=== PATIENT | female | born 1940 | race Caucasian/White ===

== ENCOUNTER 2019-12-19 09:44 | Outpatient (REF) | payer MEDICARE, SELFPAY ==
[2019-12-19 12:02] LABS: Alanine Aminotransferase 28 U/L (0-31); Albumin Level 4.2 g/dL (3.5-5.0); Alkaline Phosphatase 57 U/L (39-117); Anion Gap 14 (12-20); Aspartate Amino Transferase 19 U/L (5-31); Bilirubin Total 0.5 mg/dL (0.0-1.0); Blood Urea Nitrogen 14 mg/dL (9-16); Carbon Dioxide 24 mmol/L (22-29); Chloride 106 mmol/L (96-108); Estimated Glomerular Filt Rate > 60; Glucose Random 98 mg/dL (60-115); Potassium 3.9 mmol/l (3.3-5.1); Sodium 140 mmol/L (135-145); Total Protein 6.4 g/dL (6.5-8.0)
[2019-12-19 12:24] LABS: Vitamin D 25-OH Total 45.4 ng/mL (>30)
[2019-12-22 20:21] LABS: Calcium (PTHI) 9.3 mg/dL (8.6-10.4); PTHI 28 pg/mL (14-64)
[2019-12-26 06:37] LABS: N-Telopeptide 25 (see note); NTXCreaRU 64 mg/dL (20-275)
== END 2019-12-19 09:45 | disposition home or self-care (01) ==
LOC: HO.HMGCLDS 09:44
PROVIDERS: PCP Internal Medicine; Visit Provider Internal Medicine
DX: M81.0 Age-related osteoporosis without current pathological fracture (principal)
CPT/HCPCS: 80053; 82306; 82523; 83970

== ENCOUNTER → 2019-12-22 09:51 | Outpatient (BNVA) | payer MEDICARE, SELFPAY | PROVIDERS: PCP Internal Medicine; Referring Provider Internal Medicine; Visit Provider Internal Medicine | DX: M81.0 Age-related osteoporosis without current pathological fracture (principal); E55.9 Vitamin D deficiency, unspecified; E03.9 Hypothyroidism, unspecified; Z79.899 Other long term (current) drug therapy; Z87.891 Personal history of nicotine dependence | CPT/HCPCS: 99214 ==

== ENCOUNTER 2020-01-29 09:42 | Outpatient (REF) | payer MEDICARE, SELFPAY ==
[2020-01-29 10:57] LABS: Blood Urea Nitrogen 14 mg/dL (9-16); Estimated Glomerular Filt Rate > 60
== END 2020-01-29 09:43 | disposition home or self-care (01) ==
LOC: HO.MDS 09:42
PROVIDERS: PCP Internal Medicine; Visit Provider Internal Medicine
DX: M81.0 Age-related osteoporosis without current pathological fracture (principal)
CPT/HCPCS: 82565; 84520; 96365; J3489

== ENCOUNTER 2020-01-29 20:40 | Inpatient (IN) | payer MEDICARE, SELFPAY ==
[2020-01-29 20:42] VITALS: BP 146/78; PULSE 92; RESP 16; TEMP 36.5; O2SAT 99; BMI 26.4
--- NOTE | 2020-01-29 21:24 | XR_ITS ---
EXAMINATION: XR RIBS, LEFT CLINICAL INFORMATION: Status post fall with left lower rib pain COMPARISON: None TECHNIQUE: 3 views of the left ribs were obtained. FINDINGS: Lungs are clear. No consolidation, pneumothorax, or pleural effusion. The cardiomediastinal silhouette and pulmonary vasculature are normal. Osseous structures are unremarkable. Ribs are intact. No fractures are identified. Surgical clips are present in the gallbladder fossa. XR/XR ribs LT min 3V w CXR1V IMPRESSION: Unremarkable examination.
--- NOTE | 2020-01-29 21:25 | CT_ITS ---
EXAMINATION: CT HEAD WITHOUT CONTRAST CLINICAL INFORMATION: Fall COMPARISON: None TECHNIQUE: Contiguous axial imaging was performed from the skull base to vertex without intravenous administration of contrast. This CT examination was performed using dose optimization techniques as appropriate, variously including the following: *Automated exposure control *Adjustment of mA and/or kV according to patient size (this includes techniques or standardized protocols for targeted exams where dose is matched to indication/reason for exam; i.e. extremities or head) *Use of iterative reconstruction technique DLP: 686 mGy-cm FINDINGS: There is a left cerebral convexity subdural hematoma. This measures 0.6 cm in thickness at the level of the lateral ventricles. There is no mass effect or midline shift. There is no evidence of acute intracranial hemorrhage or territorial infarction. No abnormal mass effect or midline shift is seen. Bustillo to white matter differentiation is well preserved. No extra-axial fluid collections are identified. Mild cerebral volume loss. No hydrocephalus. There is no abnormal attenuation within the brain parenchyma. The osseous structures and soft tissues are normal. The mastoid air cells and visualized portions of the paranasal sinuses are well aerated. CT/CT head/brain wo con IMPRESSION: Small left cerebral convexity acute subdural hematoma. No mass effect or midline shift. This critical result was discussed with Satnam Mackenzie MD by telephone at 01/29/2020 9:50 PM and it was ascertained that the content and urgency of the report was understood at the time of direct communication.
--- NOTE | 2020-01-29 21:26 | ED_ITS ---
HPI - Head Injury General Chief complaint: Head Injury Stated complaint: Fall/Head Injury Time Seen by Provider: 01/29/20 21:24 Source: patient Mode of arrival: ambulatory Limitations: no limitations History of Present Illness HPI Narrative: Patient with is in stable health otherwise was coming downstairs lost balance and fell down 2 steps landed on her left side hitting the head to the ground patient was dazed, no loss of consciousness patient not on blood thinners take Advil a day also she has skin tear on the left jeff and complaining of left lower rib pain patient denies any shortness of breath , not on any aspirin or any anticoagulants patient was seen at urgent care center prior to arrival and sent here patient is ambulatory with GCS 15 patient complaining of headache on the left side since fall MD Complaint: head injury Onset (ago): minute(s) Mechanism of Injury: unsure Place: home Loss of Consciousness: no Location of injury: temporal Severity: moderate Quality: dull Associated symptoms: denies other symptoms Related Data Home Medications Medication Instructions Recorded Confirmed amlodipine 5 mg tablet 5 mg PO DAILY 12/22/19 01/29/20 levothyroxine 50 mcg tablet 50 mcg PO DAILY 12/22/19 01/29/20 sumatriptan succinate 50 mg tablet See Rx Instructions PO .COMPLEX 12/22/19 01/29/20 trazodone 200 mg PO BEDTIME 01/29/20 01/29/20 Previous Rx's Medication Instructions Recorded zoledronic acid 5 mg/100 mL in See Rx Instructions IV .COMPLEX 01/14/20 mannitol 5 %-water intravenous #100 ml piggybck simvastatin 5 mg tablet 5 mg PO BEDTIME #90 cap 01/29/20 Allergies Allergy/AdvReac Type Severity Reaction Status Date / Time No Known Allergies Allergy Verified 12/22/19 08:38 Review of Systems Review of Systems: REVIEW OF SYSTEMS: Pertinent positives and negatives are stated above in the history. GEN: no fevers, chills, fatigue HEENT: no nasal congestion, sore throat, ear pain NEURO: no dizziness, focal weakness headache+ PULM: no cough, shortness of breath CV: no chest pain, palpitations, LE edema ABD: no abdominal pain, nausea, vomiting, diarrhea : no dysuria, urgency, frequency SKIN: no rash ROS otherwise negative x 10 PMFSH Past Medical History Medical History Cellulitis HTN (hypertension) Hypothyroidism Migraine Osteoporosis Vitamin D deficiency Surgical History History of back surgery History of bunionectomy History of surgery on wrist History of tonsillectomy and adenoidectomy History of total abdominal hysterectomy and bilateral salpingo-oophorectomy Hx of cholecystectomy Hx of flexible sigmoidoscopy Hx of hammer toe correction Family History Family History Father No problems noted. Mother No problems noted. Social History Social History (Reviewed 01/30/20 @ 00: by Satnam Mackenzie MD) Alcohol intake: never Smoking Status: Never smoker Use of substances other than those prescribed or required for medical reasons: No Advance Directives: No Advance Directives Information Provided: Yes Physical Exam Vital Signs: Vital Signs: Last Vital Signs Temp 98 F 01/29/20 22:45 Pulse 100 01/29/20 22:45 Resp 18 01/29/20 22:45 BP 138/78 01/29/20 22:45 Pulse Ox 95 01/29/20 22:45 Body Mass Index 26.4 Const: General: cooperative, healthy appearing, comfortable, no acute distress, well developed, alert, awake and Physically active Nutritional Appearance: average body habitus Orientation/consciousness: oriented to person, oriented to place, oriented to time and patient oriented x3 Limitations: no limitations HENMT: Head: Yes No palpable skull fracture present, No Berkowitz's sign, Yes scalp tenderness (Left temporal) and No periorbital ecchymosis Ears: hearing grossly normal bilaterally and TM's normal bilaterally General nose exam: Normal external nose present Face and sinus: Yes normal facial exam Mouth: Normal oral and palatal mucosa present Throat: Yes posterior oropharynx normal Eyes: General: appearance normal, both eyes and all related structures Conjunctivae: conjunctivae normal Sclerae: sclerae normal Pupils: Equal, round and reactive pupils present Neck: Neck: Yes normal visual inspection, Yes full ROM, Yes no lymphadenopathy, Yes trachea midline and Yes supple Thyroid: Thyroid normal Chest: Chest palpation & inspection: normal inspection of the chest, no crepitus, no localized rib tenderness and tenderness costal cartilage (Left side in front) Breast/axilla inspection: normal inspection of the breasts Resp: Effort & Inspection: normal respiratory effort Auscultation: clear to auscultation bilaterally Cardio: Rate: regular rate Rhythm: regular rhythm Heart sounds: S1 normal heart sound present and S2 normal heart sound present GI: Inspection: Yes normal to inspection Palpation (GI): Soft to palpation, nontender and No hepatosplenomegaly present : General: Yes no CVA tenderness Back/Spine/Pelvis: Back: no CVA tenderness Thoracic/Lumbar Spine: thoracic and lumbar spine normal to inspection Skin: Full body images: 1. Skin tear 8 cm Neuro: Other: GCS 15 General: oriented to person, oriented to place, oriented to time, patient oriented x3, gait normal, tone normal, moves all extremities, Normal light touch and pain sensation, no focal motor deficits and CN's II-XI intact bilaterally Cranial nerves: Yes CN's II-XII intact bilaterally, Yes Facial sensation intact/muscles of mastication intact and Yes Equal, round and reactive pupils present Cognition (Neuro): normal cognition Motor exam (neuro): 5/5 motor strength present throughout Sensory Exam: Normal double simultaneous stimulation for sensation Course Course Course Narrative: Patient with mechanical fall with head injury with small left- sided subdural hematoma without any midline shift or fracture. Case discussed with Dr. Downs neurologist can admit medically in the hospital, neuro check q.[address] scan in the morning no need for transfer tonight to [facility] as patient is not on any anticoagulants and subdural bleed is not significant at this time Procedures Laceration Laceration 1: Site: lower extremity Side (If applicable): left Size (cm): 8 Description: other (Skin tear) Depth: simple, single layer Skin layer closed with: other (Steri-Strips) MDM - Head Injury Differential Diagnosis Differential diagnosis: Likely closed head injury and subdural hematoma Medical Records Attestation: I reviewed the patient's medical records. Lab Data Attestation: I reviewed the patient's lab results. Result diagrams: 01/29/20 22:22 01/29/20 22:22 Labs: Lab Results 01/29/20 01/29/20 01/29/20 Range/Units 22:22 22:22 22:22 WBC 7.9 (4.8-10.8) X10*3/uL RBC 4.32 (4.20-5.50) X10*6/uL Hgb 13.6 (12.0-16.0) g/dl Hct 40.7 (37-47) % MCV 94.2 (80-98) fL MCH 31.5 (27.0-33.0) pg MCHC 33.4 (31.0-35.0) g/dl RDW 12.3 (11.0-16.0) % Plt Count 169 (160-400) X10*3/uL MPV 9.5 (9.4-12.3) fL Immature Gran % (Auto) 0.6 H (0.0-0.4) % Neut % (Auto) 66.1 (45-73) % Lymph % (Auto) 27.0 (20-40) % [place] % (Auto) 4.7 (2-11) % Eos % (Auto) 1.5 (0-4) % Baso % (Auto) 0.1 (0-2) % Lymph # (Auto) 2.1 (1.2-4.9) X10*3/uL [place] # (Auto) 0.4 (0.1-1.2) X10*3/uL Eos # (Auto) 0.1 (0.0-0.4) X10*3/uL Baso # (Auto) 0.0 (0.0-0.2) X10*3/uL Abs Immat Gran (auto) 0.05 H (0.00-0.03) X10*3/uL Absolute Neuts (auto) 5.2 (2.0-8.3) X10*3/uL Absolute Nucleated RBC 0.000 (0.0-0.012) X10*3/uL Nucleated RBC % (auto) 0.0 (0.0-0.2) /100WBC PT 11.5 (10.8-13.0) SEC INR 1.0 (0.9-1.1) APTT 32.0 (24.1-38.0) SEC Sodium 142 (135-145) mmol/L Potassium 3.3 (3.3-5.1) mmol/l Chloride 107 (96-108) mmol/L Carbon Dioxide 25 (22-29) mmol/L Anion Gap 13 (12-20) BUN 11 (9-16) mg/dL Creatinine 0.75 (0.5-1.4) mg/dL Estim Creat Clear Calc 50.2 Estimated GFR > 60 Random Glucose 88 (60-115) mg/dL Calcium 8.7 (8.4-10.2) mg/dL COVID-19 ([facility]) (Negative) COVID-19 Clin Com 01/29/20 Range/Units 22:44 WBC (4.8-10.8) X10*3/uL RBC (4.20-5.50) X10*6/uL Hgb (12.0-16.0) g/dl Hct (37-47) % MCV (80-98) fL MCH (27.0-33.0) pg MCHC (31.0-35.0) g/dl RDW (11.0-16.0) % Plt Count (160-400) X10*3/uL MPV (9.4-12.3) fL Immature Gran % (Auto) (0.0-0.4) % Neut % (Auto) (45-73) % Lymph % (Auto) (20-40) % [place] % (Auto) (2-11) % Eos % (Auto) (0-4) % Baso % (Auto) (0-2) % Lymph # (Auto) (1.2-4.9) X10*3/uL [place] # (Auto) (0.1-1.2) X10*3/uL Eos # (Auto) (0.0-0.4) X10*3/uL Baso # (Auto) (0.0-0.2) X10*3/uL Abs Immat Gran (auto) (0.00-0.03) X10*3/uL Absolute Neuts (auto) (2.0-8.3) X10*3/uL Absolute Nucleated RBC (0.0-0.012) X10*3/uL Nucleated RBC % (auto) (0.0-0.2) /100WBC PT (10.8-13.0) SEC INR (0.9-1.1) APTT (24.1-38.0) SEC Sodium (135-145) mmol/L Potassium (3.3-5.1) mmol/l Chloride (96-108) mmol/L Carbon Dioxide (22-29) mmol/L Anion Gap (12-20) BUN (9-16) mg/dL Creatinine (0.5-1.4) mg/dL Estim Creat Clear Calc Estimated GFR Random Glucose (60-115) mg/dL Calcium (8.4-10.2) mg/dL COVID-19 ([facility]) Negative (Negative) COVID-19 Clin Com See Note Imaging Data CT scan - head: Radiologist's impression: Small left cerebral convexity acute subdural h ematoma. No mass effect or midline shift. Discharge Plan Discharge Clinical Impression: Subdural hematoma, Skin tear, Fall (on) (from) other stairs and steps, initial encounter Patient Disposition: Admitted As Inpatient
--- NOTE | 2020-01-29 21:53 | CT_ITS ---
EXAMINATION: CT CERVICAL SPINE WITHOUT CONTRAST CLINICAL INFORMATION: Fall. COMPARISON: None. TECHNIQUE: Contiguous helical images of the cervical spine were obtained without IV contrast. Multiplanar reconstructions were performed. This CT examination was performed using dose optimization techniques as appropriate, variously including the following: *Automated exposure control *Adjustment of mA and/or kV according to patient size (this includes techniques or standardized protocols for targeted exams where dose is matched to indication/reason for exam; i.e. extremities or head) *Use of iterative reconstruction technique DLP: 317 mGy-cm FINDINGS: Reversal of the normal cervical lordosis. There is slight anterolisthesis of C3 on C4. Slight retrolisthesis of C5 on C6. There is otherwise anatomic alignment of the vertebral bodies and posterior elements. The atlantoaxial and atlantooccipital articulations are intact. There is fusion of the C2-C3 vertebral bodies and facets. Degenerative change at the left atlantooccipital articulation. Vertebral body heights are maintained. There is diffuse disc space narrowing with endplate osteophyte formation. Severe arthropathy at multiple levels. No evidence of acute fracture. No prevertebral soft tissue swelling. There is no cervical lymphadenopathy. The visualized thyroid gland is unremarkable. The known left subdural hematoma is not well visualized.. The visualized lung apices are clear. CT/CT cervical spine wo con IMPRESSION: No evidence for acute injury to the cervical spine. Moderate degenerative changes throughout.
--- NOTE | 2020-01-29 21:53 | ECG_ITS ---
Test Reason : FALL Blood Pressure : / mmHG Vent. Rate : 101 BPM Atrial Rate : 101 BPM P-R Int : 188 ms QRS Dur : 086 ms QT Int : 364 ms P-R-T Axes : 048 032 039 degrees QTc Int : 471 ms Sinus tachycardia Otherwise normal ECG When compared with ECG of 26-MAY-2017 14:27, No significant change was found Referred By: Satnam Mackenzie Electronically Signed By:DONNIE CASTANON MD
[2020-01-29 22:27] LABS: Basophils Percent Auto 0.1 % (0-2); Eosinophils Absolute Auto 0.1 X10*3/uL (0.0-0.4); Eosinophils Percent Auto 1.5 % (0-4); Hematocrit 40.7 % (37-47); Hemoglobin 13.6 g/dl (12.0-16.0); Imm Gran Abs Auto 0.05 X10*3/uL (0.00-0.03); Imm Gran Pct Auto 0.6 % (0.0-0.4); Lymphocytes Absolute Auto 2.1 X10*3/uL (1.2-4.9); MANUAL DIFF FLAG NO; Mean Corpuscular HGB Conc 33.4 g/dl (31.0-35.0); Mean Corpuscular Hemoglobin 31.5 pg (27.0-33.0); Mean Corpuscular Volume 94.2 fL (80-98); Mean Platelet Volume 9.5 fL (9.4-12.3); Monocytes Absolute Auto 0.4 X10*3/uL (0.1-1.2); Monocytes Percent Auto 4.7 % (2-11); Neutrophils Absolute Auto 5.2 X10*3/uL (2.0-8.3); Neutrophils Percent Auto 66.1 % (45-73); Platelet Count 169 X10*3/uL (160-400); Red Blood Count 4.32 X10*6/uL (4.20-5.50); Red Cell Distribution Width 12.3 % (11.0-16.0); White Blood Count 7.9 X10*3/uL (4.8-10.8)
[2020-01-29 22:37] LABS: Prothrombin Time 11.5 SEC (10.8-13.0)
[2020-01-29 22:45] VITALS: BP 138/78; PULSE 100; RESP 18; TEMP 36.6; O2SAT 95
[2020-01-29 22:46] LABS: Anion Gap 13 (12-20); Blood Urea Nitrogen 11 mg/dL (9-16); Calcium 8.7 mg/dL (8.4-10.2); Carbon Dioxide 25 mmol/L (22-29); Chloride 107 mmol/L (96-108); Creatinine Clr Calc Pharmacy 50.2; Estimated Glomerular Filt Rate > 60; Glucose Random 88 mg/dL (60-115); Potassium 3.3 mmol/l (3.3-5.1); Sodium 142 mmol/L (135-145)
[2020-01-29 23:06] LABS: COVID-19 Test Negative (Negative); IDNOW Serial# 9DD0AD1C
--- NOTE | 2020-01-29 23:29 | PC.NURSE ---
Report from [facility], pt requesting to use bathroom, requesting sanitary napkin, ambulated to bathroom with slow/steady gait. Neuros grossly intact. Pt alert and answering questions appropriately. Reports left side pain and h/a
[2020-01-29] MEDS: Acetaminophen 325 MG TABLET 650 MG PO (23:41)
--- NOTE | 2020-01-30 | CT_ITS ---
EXAMINATION: CT CHEST WITHOUT CONTRAST CLINICAL INFORMATION: Left-sided rib pain COMPARISON: None TECHNIQUE: Multidetector volumetric CT imaging of the chest was done. Axial MIP volume rendering provided. Sagittal and coronal reformatted images were obtained. This CT examination was performed using dose optimization techniques as appropriate, variously including the following: *Automated exposure control *Adjustment of mA and/or kV according to patient size (this includes techniques or standardized protocols for targeted exams where dose is matched to indication/reason for exam; i.e. extremities or head) *Use of iterative reconstruction technique DLP: 390 mGy-cm FINDINGS: [employer]: Well-expanded lungs. LUNGS: Both lungs are well-expanded and clear of acute pneumonic process. There is minimal atelectatic changes right upper lobe anterior segment, and lingula.. MEDIASTINUM: The thyroid lobes are symmetrical and normal. The central trachea and the bronchi widely patent. The heart size is normal. No pericolic effusion seen. There are coronary artery calcifications. The vascular structures and normal caliber. No abnormal size mediastinal or hilar lymph nodes seen. PLEURA: There is no pleural effusion. No pleural mass or thickening. AXILLA: No lymphadenopathy. UPPER ABDOMEN: There is a punctate hypodensity right hepatic lobe image 45/3 probable cyst. Visualized spleen, pancreas and bilateral adrenal glands are unremarkable. OSSEOUS STRUCTURES: There is a left anterolateral sixth rib nondisplaced fracture on axial image 40/3. No additional fractures seen. CT/CT chest wo con IMPRESSION: Left anterolateral sixth rib fracture without chest wall hematoma or pneumothorax. This suggests and lingular atelectasis. Minimal atelectatic changes also seen right upper lobe.
--- NOTE | 2020-01-30 00:19 | PM.IMHP ---
History of Present Illness Date of Service: 01/30/20 Chief Complaint: Fall 79 y/o female with extensive PMHX who presented from home due to fall. Per history provided by the patient, while taking the stairs of her house, she tripped and fell, hitting her left side of the body including her head. Patient has good recollection of the events prior to the fall and after the fall. Denies any LOC, chest pain, SOB, nausea, vomiting, Bladder or bowel incontinence. Patient reports that after the fall has been having on and off episodes of headache but it has been improving since. On presentaion to the ED patient was found to be hemodynamically stable, no episodes of fever, Blood work unremarkable, CT head showing small left cerebral subdural hematoma 0.6 cm with no mass effect. Neurology cancellation clerk Dr Downs was consulted per ED who recommends admission for monitoring, possible repeat imaging of the head after 24 hrs. Decision for admission given. Patient seen and examined at the bedside, laying down in bed in no acute distress. ROS as above otherwise negative. Physical exam unremarkable. PMHX: HTN, HLP, Hypothyroidism, Migraines, Hx of diverticulitis PSx: cholecystectomy, appendectomy, tonsillectomy, hysterectomy, back surgery Toxic habits: No hx of alcohol abuse, smoking or IVDA Review of Systems Constitutional: Constitutional: Reports as per [facility] Medical History Cellulitis HTN (hypertension) Hypothyroidism Migraine Osteoporosis Vitamin D deficiency Functional capacity: independent ambulation Family History Father No problems noted. Mother No problems noted. Surgical History History of back surgery History of bunionectomy History of surgery on wrist History of tonsillectomy and adenoidectomy History of total abdominal hysterectomy and bilateral salpingo-oophorectomy Hx of cholecystectomy Hx of flexible sigmoidoscopy Hx of hammer toe correction Social History Alcohol intake: never Smoking Status: Never smoker Use of substances other than those prescribed or required for medical reasons: No Advance Directives: No Advance Directives Information Provided: Yes Meds Allergies Allergy/AdvReac Type Severity Reaction Status Date / Time No Known Allergies Allergy Verified 12/22/19 08:38 Home Medications Medication Instructions Recorded Confirmed Type amlodipine 5 mg tablet 5 mg PO DAILY 12/22/19 01/29/20 History levothyroxine 50 mcg tablet 50 mcg PO DAILY 12/22/19 01/29/20 History sumatriptan succinate 50 mg tablet See Rx Instructions PO .COMPLEX 12/22/19 01/29/20 History trazodone 200 mg PO BEDTIME 01/29/20 01/29/20 History Physical Exam Vital Signs and Narrative: Vital Signs: Last Vital Signs Temp 98 F 01/29/20 22:45 Pulse 100 01/29/20 22:45 Resp 18 01/29/20 22:45 BP 138/78 01/29/20 22:45 Pulse Ox 95 01/29/20 22:45 Body Mass Index 26.4 Const: General: cooperative, comfortable and no acute distress Orientation/consciousness: oriented to person, oriented to place and oriented to time HENMT: Head: Yes normal to inspection Eyes: General: appearance normal, both eyes and all related structures Neck: Yes normal visual inspection Chest: Chest palpation & inspection: normal inspection of the chest Resp: Effort & Inspection: normal respiratory effort Auscultation: clear to auscultation bilaterally Cardio: Jugular venous distension: no JVD Rate: regular rate Rhythm: regular rhythm Heart sounds: S1 normal heart sound present and S2 normal heart sound present GI: Inspection: Yes normal to inspection Skin: General skin exam: no rashes or lesions noted Neuro: General: oriented to person, oriented to place and oriented to time Cognition (Neuro): normal cognition Results Labs CBC and Chem 7: 01/29/20 22:22 01/29/20 22:22 Labs: Laboratory Results - last 24 hr 01/29/20 01/29/20 01/29/20 22:22 22:22 22:22 MCV 94.2 MCH 31.5 MCHC 33.4 RDW 12.3 Plt Count 169 MPV 9.5 Immature Gran % (Auto) 0.6 H Neut % (Auto) 66.1 Lymph % (Auto) 27.0 [place] % (Auto) 4.7 Eos % (Auto) 1.5 Baso % (Auto) 0.1 Lymph # (Auto) 2.1 [place] # (Auto) 0.4 Eos # (Auto) 0.1 Baso # (Auto) 0.0 Abs Immat Gran (auto) 0.05 H Absolute Neuts (auto) 5.2 Absolute Nucleated RBC 0.000 Nucleated RBC % (auto) 0.0 PT 11.5 INR 1.0 APTT 32.0 Anion Gap 13 Estim Creat Clear Calc 50.2 Estimated GFR > 60 Random Glucose 88 Calcium 8.7 COVID-19 ([facility]) COVID-19 Clin Com 01/29/20 22:44 MCV MCH MCHC RDW Plt Count MPV Immature Gran % (Auto) Neut % (Auto) Lymph % (Auto) [place] % (Auto) Eos % (Auto) Baso % (Auto) Lymph # (Auto) [place] # (Auto) Eos # (Auto) Baso # (Auto) Abs Immat Gran (auto) Absolute Neuts (auto) Absolute Nucleated RBC Nucleated RBC % (auto) PT INR APTT Anion Gap Estim Creat Clear Calc Estimated GFR Random Glucose Calcium COVID-19 ([facility]) Negative COVID-19 Clin Com See Note Imaging Radiologist's Impressions: Impressions Ribs X-Ray 01/29/20 21:24 IMPRESSION: Unremarkable examination. Head CT 01/29/20 21:25 IMPRESSION: Small left cerebral convexity acute subdural hematoma. No mass effect or midline shift. This critical result was discussed with Satnam Mackenzie MD by telephone at 01/29/2020 9:50 PM and it was ascertained that the content and urgency of the report was understood at the time of direct communication. Cervical Spine CT 01/29/20 21:53 IMPRESSION: No evidence for acute injury to the cervical spine. Moderate degenerative changes throughout. Assessment and Plan (1) Subdural hematoma: Status: Acute monitoring [place] [facility] [place] ordered Repeat Imaging of the head in 24 hrs from now Neurology consult in the am (2) Hypothyroidism: Qualifiers: Hypothyroidism type: unspecified Qualified Code(s): E03.9 - Hypothyroidism, unspecified Status: Acute continue with levothyroxine home dose (3) Migraine: Status: Acute continue with sumatriptan home dose (4) HTN (hypertension): Status: Acute continue with amlodipine home dose (5) Hyperlipidemia: Status: Acute continue with statin home dose (6) Insomnia: Status: Acute continue with trazodone home dose
--- NOTE | 2020-01-30 00:30 | PC.NURSE ---
Called to the floor for report, floor to call back.
--- NOTE | 2020-01-30 01:08 | PC.NURSE ---
report given to the floor
[2020-01-30] MEDS: Acetaminophen 325 MG TABLET 650 MG PO ×2 (02:46→08:20)
[2020-01-30 03:20] VITALS: BP 129/65; PULSE 88; RESP 20; TEMP 36.6; O2SAT 97
[2020-01-30 06:10] LABS: MANUAL DIFF FLAG NO
[2020-01-30 06:43] LABS: Anion Gap 12 (12-20); Blood Urea Nitrogen 12 mg/dL (9-16); Calcium 8.2 mg/dL (8.4-10.2); Carbon Dioxide 27 mmol/L (22-29); Chloride 107 mmol/L (96-108); Creatinine Clr Calc Pharmacy 55.3; Estimated Glomerular Filt Rate > 60; Glucose Random 104 mg/dL (60-115); Potassium 3.6 mmol/l (3.3-5.1); Sodium 142 mmol/L (135-145)
[2020-01-30 06:47] LABS: Eosinophils Absolute Auto 0.1 X10*3/uL (0.0-0.4); Hematocrit 38.4 % (37-47); Hemoglobin 12.8 g/dl (12.0-16.0); Imm Gran Abs Auto 0.03 X10*3/uL (0.00-0.03); Imm Gran Pct Auto 0.5 % (0.0-0.4); Lymphocytes Absolute Auto 1.5 X10*3/uL (1.2-4.9); Lymphocytes Percent Auto 23.8 % (20-40); Mean Corpuscular HGB Conc 33.3 g/dl (31.0-35.0); Mean Corpuscular Hemoglobin 31.8 pg (27.0-33.0); Mean Corpuscular Volume 95.5 fL (80-98); Mean Platelet Volume 9.8 fL (9.4-12.3); Monocytes Absolute Auto 0.5 X10*3/uL (0.1-1.2); Monocytes Percent Auto 7.5 % (2-11); Neutrophils Absolute Auto 4.1 X10*3/uL (2.0-8.3); Neutrophils Percent Auto 66.2 % (45-73); Platelet Count 163 X10*3/uL (160-400); Red Blood Count 4.02 X10*6/uL (4.20-5.50); Red Cell Distribution Width 12.4 % (11.0-16.0); White Blood Count 6.1 X10*3/uL (4.8-10.8)
[2020-01-30 07:40] VITALS: BP 163/77; PULSE 91; RESP 18; TEMP 36.2; O2SAT 96
[2020-01-30] MEDS: Levothyroxine Sodium 50 MCG TABLET PO (08:20)
[2020-01-30] MEDS: oxyCODONE HCl Immed Release 5 MG TABLET PO ×2 (08:20→12:30)
[2020-01-30] MEDS: amLODIPine Besylate 5 MG TABLET PO (08:20)
[2020-01-30] MEDS: 0.9 % Sodium Chloride Flush 3 ML SYRINGE IVFLUSH ×2 (08:21→17:17)
--- NOTE | 2020-01-30 08:43 | MHC.CM.PN ---
R/T Covid situation, CM attempted X2 to reach Patient by phone but was unable to do so. CM spoke with /HCP/Gwyn. Patient lives in a house with Gwyn and she is functionally independent. The goal for dc is for Patient to return home, no services. CM has initiated and will follow for dc planning. IMM addressed with Gwyn and original is being mailed out certified letter to him and a copy has been placed on the chart. PCP is Dr. Veronica Barker.
[2020-01-30 11:43] VITALS: BP 137/75; PULSE 103; RESP 18; TEMP 36.2; O2SAT 98
--- NOTE | 2020-01-30 12:15 | PM.NEUROCN ---
History of Present Illness Data of Consult Service Date: 01/30/20 Primary Care Provider: Veronica Barker MD HPI Reason for consult: Fall with head trauma This is a 79-year-old woman with history of hyperlipidemia hypertension and hypothyroidism who tripped coming down the stairs last night and fell striking the left ribcage and hitting the left side of the head on concrete. She had some abrasion on the leg but no other external injuries. There was no loss of consciousness. Since then she has had progressive severe headache and left ribcage pain. She feels no nausea vomiting or dizziness. She does not take any blood thinners or aspirin. Her CT scan on admission showed a 6 mm acute left subdural hematoma extending from the left temporal frontal and parietal regions without any significant mass effect. She also has generalized cortical and subcortical atrophy Review of Systems Eyes: Eyes: Reports no additional eye complaints ENT: Reports system reviewed and no additional complaints, except as documented and Reports Normal hearing present Cardiovascular: Cardiovascular: Reports no additional cardiovascular complaints Respiratory: Respiratory: Reports no additional respiratory complaints Gastrointestinal: Gastrointestinal: Reports no additional gastrointestinal complaints Musculoskeletal: Musculoskeletal: Reports no additional musculoskeletal complaints Integumentary/Breasts: Skin/Breast: Reports system reviewed and no additional complaints, except as docu Neurologic: Reports as per HPI and Reports Normal hearing present Psychiatric: Psychiatric: Reports as per HPI Endocrine: Endocrine: Reports no additional endocrine complaints Hematologic/Lymphatic: Hematologic/Lymphatic: Reports no additional hematologic/lymphatic complaints Allergic/Immunologic: Allergic/Immunologic: Reports no additional allergic/immunologic complaints PMFSH Past Medical History Medical History Cellulitis HTN (hypertension) Hypothyroidism Migraine Osteoporosis Vitamin D deficiency Functional capacity: independent ambulation Family History Family History Father No problems noted. Mother No problems noted. Surgical History Surgical History History of back surgery History of bunionectomy History of surgery on wrist History of tonsillectomy and adenoidectomy History of total abdominal hysterectomy and bilateral salpingo-oophorectomy Hx of cholecystectomy Hx of flexible sigmoidoscopy Hx of hammer toe correction Social History Social History Household Members: Spouse Housing: House Do you presently have visiting nurse or other home services: No Alcohol intake: never Smoking Status: Never smoker Use of substances other than those prescribed or required for medical reasons: No Have you been hit, kicked, punched, or otherwise hurt by someone within the past year? If so, by whom?: No Do you feel safe in your current relationship?: Yes Is there a partner from a previous relationship who is making you feel unsafe now?: No Are you made to feel afraid or neglected: No Advance Directives: No Advance Directives Information Provided: Yes Do you have thoughts of harming others: None Do you have a plan to hurt others: No Plan Recently lost weight without trying: No service: No Current occupational status: retired [employer] Allergies Allergy/AdvReac Type Severity Reaction Status Date / Time No Known Allergies Allergy Verified 12/22/19 08:38 Home Medications Medication Instructions Recorded Confirmed Type amlodipine 5 mg tablet 5 mg PO DAILY 12/22/19 01/29/20 History levothyroxine 50 mcg tablet 50 mcg PO DAILY 12/22/19 01/29/20 History sumatriptan succinate 50 mg tablet See Rx Instructions PO .COMPLEX 12/22/19 01/29/20 History trazodone 200 mg PO BEDTIME 01/29/20 01/29/20 History Physical Exam Vital Signs: Vital Signs: Last Vital Signs Temp 97.2 F 01/30/20 11:43 Pulse 103 H 01/30/20 11:43 Resp 18 01/30/20 11:43 BP 137/75 01/30/20 11:43 Pulse Ox 98 01/30/20 11:43 Body Mass Index 26.4 Const: General: cooperative, comfortable, no acute distress, well developed, alert and awake Nutritional Appearance: well nourished Orientation/consciousness: oriented to person, oriented to place and oriented to time Limitations: no limitations HENMT: Head: Yes normal to inspection, Yes normocephalic and Yes atraumatic Ears: hearing grossly normal bilaterally General nose exam: Normal external nose present Face and sinus: Yes normal facial exam Mouth: Normal oral and palatal mucosa present Eyes: General: appearance normal, both eyes and all related structures Visual Wahl: normal visual wahl by confrontation Alignment and Position: alignment normal Periorbital: periorbital findings normal Eyelids: Yes eyelids normal Conjunctivae: conjunctivae normal Sclerae: sclerae normal Corneas: corneas normal Pupils: Equal, round and reactive pupils present and Pupil accommodation reflex normal EOM: EOMs intact bilaterally Direct Ophthalmoscopy: normal light reflex Neck: Neck: Yes normal visual inspection, Yes full ROM and Yes no meningeal signs Thyroid: Thyroid normal Carotids: normal carotid upstroke and bounding pulses Chest: Chest palpation & inspection: normal inspection of the chest Resp: Effort & Inspection: normal respiratory effort Auscultation: clear to auscultation bilaterally Cardio: Rate: regular rate Rhythm: regular rhythm Heart sounds: S1 normal heart sound present and S2 normal heart sound present Peripheral pulses: Peripheral pulses 2+ throughout GI: Inspection: Yes normal to inspection Percussion: Yes normal to percussion Auscultation: normal bowel sounds Rectal Exam - Female: deferred Back/Spine/Pelvis: Cervical Spine: normal cervical lordosis and cervical ROM normal Thoracic/Lumbar Spine: thoracic and lumbar spine normal to inspection Skin: General skin exam: no rashes or lesions noted Neuro: General: oriented to person, oriented to place, oriented to time, gait normal, tone normal, moves all extremities, Normal light touch and pain sensation, no meningeal signs, no focal motor deficits, CN's II-XI intact bilaterally, normal sensation to monofilament and deep tendon reflexes 2+ bilaterally Cranial nerves: Yes CN's II-XII intact bilaterally, Yes Equal, round and reactive pupils present, Yes Bilaterally intact EOM present, Yes Nystagmus not present, Yes Normal facial strength present, Yes Midline tongue present, Yes Normal gag reflex present, Yes Symmetric palate elevation present, Yes Normal hearing present and Yes Ability to bilaterally rotate head present Cognition (Neuro): normal cognition Speech: Other speech findings present (Neuro) Gait exam (Neuro): Normal gait present Motor exam (neuro): 5/5 motor strength present throughout, Pronator motor function not present, no tremor noted, no asterixis, Motor fasciculations not present, Normal motor muscle tone present throughout and Motor abnormalities not present Sensory Exam: Bilaterally intact graphesthesia Deep tendon reflexes (DTR's): Right triceps reflex intensity grade: 2+, Left triceps reflex intensity grade: 2+, Rt Biceps (C5, C6): 2+, Left biceps reflex intensity grade: 2+, Right brachioradialis reflex intensity grade: 2+, Left brachioradialis reflex intensity grade: 2+, Right patellar reflex intensity grade: 2+, Left patellar reflex intensity grade: 2+, Right ankle reflex intensity grade: 2+ and Left ankle reflex intensity grade: 2+ Plantar Reflex Responses: downgoing: right, left and bilateral Coordination: [id number] test normal, [id number] test normal, tandem gait normal and Romberg test negative Pupils: Normal pupillary reactivity/response: bilateral Extrem: General: Yes normal to inspection, Yes normal exam except as noted and Yes no pedal edema Psych: Appearance: grossly normal Mental Status: mental status grossly normal Speech and movement: Normal speech and movement present and Clear speech present Affect: normal affect Attitude: cooperative Thought process: Normal thought process present Results Labs CBC & Chem 7: 01/30/20 05:27 01/30/20 05:27 Labs: Short CBC 01/29/20 01/30/20 Range/Units 22:22 05:27 WBC 7.9 6.1 (4.8-10.8) X10*3/uL Hgb 13.6 12.8 (12.0-16.0) g/dl Hct 40.7 38.4 (37-47) % Plt Count 169 163 (160-400) X10*3/uL BMP 01/29/20 01/30/20 22:22 05:27 Sodium 142 142 Potassium 3.3 3.6 Chloride 107 107 Carbon Dioxide 25 27 BUN 11 12 Creatinine 0.75 0.68 Calcium 8.7 8.2 L Assessment and Plan (1) Subdural hematoma: Problem details: Acute left subdural hematoma 6 mm diffuse with no significant mass effect Status: Acute Observation. Neuro checks. Follow-up CT scan of the brain without contrast in 48 hours to make sure that the subdural collection is not increasing or producing mass effect. If she is stable she could be discharged after that. She will also need a follow-up CT scan in 6 weeks (2) HTN (hypertension): Status: Acute Monitor and control blood pressure (3) Fall (on) (from) other stairs and steps, initial encounter: Status: Acute
[2020-01-30] MEDS: Lidocaine 4 % Patch ADH..PATCH 1 PATCH TRANSDERMA (12:17)
[2020-01-30] MEDS: SUMAtriptan succinate 50 MG TABLET PO (12:40)
--- NOTE | 2020-01-30 13:00 | P.PNIM_ITS ---
Subjective Subjective Date of Service: 01/30/20 Interval History: seen and examined denies any focal neurological complaints main complaint is L rib pain ROS General - no fevers or chills Cardiovascular - no chest pain Respiratory - no shortness of breath or cough Abdominal- no abdominal pain, nausea, vomiting, diarrhea Physical Exam Vital Signs: Vital Signs: Last Vital Signs Temp 97.2 F 01/30/20 11:43 Pulse 103 H 01/30/20 11:43 Resp 18 01/30/20 11:43 BP 137/75 01/30/20 11:43 Pulse Ox 98 01/30/20 11:43 Body Mass Index 26.4 Const: Other: General - no acute distress, appears comfortable Cardiovascular - regular rate and rhythm, S1-S2 Lungs - normal respiratory effort, clear to auscultation bilaterally, no wheezing Abdomen - soft, non-tender, no rebound or guarding Extremities - no edema bilaterally Neuro - awake and alert, no focal deficits Objective Data Current Medications Generic Name Dose Route Start Last Admin Trade Name Freq PRN Reason Stop Dose Admin Amlodipine Besylate 5 mg 01/30/20 09:00 01/30/20 08:20 Amlodipine Besylate 5 Mg Tablet PO 5 mg DAILY JEAN PAUL Administration Protocol Atorvastatin Calcium 10 mg 01/30/20 21:00 Atorvastatin Calcium 10 Mg Tablet PO BEDTIME JEAN PAUL Levothyroxine Sodium 50 mcg 01/30/20 09:00 01/30/20 08:20 Levothyroxine Sodium 50 Mcg Tablet PO 50 mcg DAILY JEAN PAUL Administration Lidocaine 1 patch 01/30/20 12:00 01/30/20 12:17 Lidocaine 4 % Patch Adh..Patch TRANSDERMA 1 patch DAILY JEAN PAUL Administration Protocol Oxycodone HCl 5 mg 01/30/20 07:52 01/30/20 12:30 Oxycodone Hcl Immed Release 5 Mg Tablet PO 5 mg Q6H PRN Administration Pain, Severe (Pain Scale 7-10) Sodium Chloride 3 ml 01/30/20 08:00 01/30/20 08:21 0.9 % Sodium Chloride Flush 3 Ml Syringe IVFLUSH 3 ml QSHIFT JEAN PAUL Administration Sumatriptan Succinate 0 mg 01/30/20 00:15 01/30/20 12:40 Sumatriptan Succinate 50 Mg Tablet PO 50 mg .COMPLEX JEAN PAUL Administration Trazodone HCl 200 mg 01/30/20 21:00 Trazodone Hcl 100 Mg Tablet PO BEDTIME JEAN PAUL Labs CBC & Chem 7: 01/30/20 05:27 01/30/20 05:27 Assessment and Plan (1) Subdural hematoma: Status: Acute Assessment and Plan: This is a 79-year-old female who sustained a mechanical fall and is admitted for monitoring of a small subdural hematoma. 1. subdural hematoma Seen by Neurology who recommends CT of the brain in 48 hours. Continue with neuro checks 2.Left chest wall pain Rib x-rays do not show any fractures but patient has significant pain Will use lidocaine patch Start [place] and p.r.n. morphine Check CT of the chest to make sure there is no occult fracture 3. hypertension Continue Norvasc Continue other care Full code DVT prophylaxis, mechanical due to brain bleed
[2020-01-30] MEDS: Morphine Sulfate 4 MG/ML CARTRIDGE 3 MG IVPUSH ×2 (13:09→20:24)
[2020-01-30 15:17] VITALS: BP 126/67; PULSE 80; RESP 19; TEMP 36.1; O2SAT 95
[2020-01-30 19:17] VITALS: BP 113/67; PULSE 80; RESP 19; TEMP 35.9; O2SAT 96
[2020-01-30] MEDS: HYDROcodone Bit/Acetam 5/325 TABLET 2 TAB PO (20:24)
[2020-01-30] MEDS: traZODone HCL 100 MG TABLET 200 MG PO (20:24)
[2020-01-30] MEDS: Atorvastatin Calcium 10 MG TABLET PO (20:25)
--- NOTE | 2020-01-30 22:49 | PC.NURSE ---
Pt was oob in chair for meal, stated pain was tolerable in early evening. She later reported pain had returned and she was uncomfortable. She was medicated for pain and went to bed and has been sleeping since.
[2020-01-31] VITALS (7 sets, daily range): BP systolic 92–120; BP diastolic 52–66; PULSE 80–100; RESP 18–19; TEMP 35.7–37.1; O2SAT 90–100
--- NOTE | 2020-01-31 | CT_ITS ---
EXAMINATION: CT HEAD WITHOUT CONTRAST CLINICAL INFORMATION: Follow-up subdural hematoma. COMPARISON: CT head from 01/29/2020. TECHNIQUE: Contiguous axial imaging was performed from the skull base to vertex without intravenous administration of contrast. This CT examination was performed using dose optimization techniques as appropriate, variously including the following: *Automated exposure control. *Adjustment of mA and/or kV according to patient size (this includes techniques or standardized protocols for targeted exams where dose is matched to indication/reason for exam; i.e. extremities or head). *Use of iterative reconstruction technique. DLP: 657 mGy-cm FINDINGS: Hyperattenuating left hemispheric subdural hematoma has minimally decreased in size compared to exam from 01/29/2020, now measuring up to 0.5 cm in depth (previously 0.7 cm). No evidence of new intracranial hemorrhagic products. There is no evidence of acute edematous territorial infarction. A few foci of hypoattenuation in the periventricular and deep white matter are consistent with mild microangiopathy. Bustillo-white matter differentiation is preserved. Proportional prominence of the ventricles and sulcal spaces. No evidence for obstructive hydrocephalus. No midline shift. No evidence of significant mass effect. The cerebellar tonsils are normally positioned. Calcific atherosclerotic disease of the intracranial internal carotid and vertebral arteries. No acute soft tissue or osseous abnormalities. 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 Advanced left-sided and [id number] right-sided degenerative arthropathy of the temporomandibular joints. The mastoid air cells and paranasal sinuses are clear. Bilateral lens extractions. CT/CT head/brain wo con IMPRESSION: 1. Minimal interval decrease in size of a left hemispheric subdural hematoma now measuring 0.5 cm in depth (previously 0.7 cm in depth). No new hemorrhagic products. 2. No evidence of acute edematous territorial infarction. Mild underlying microangiopathy and generalized cerebral volume loss.
[2020-01-31] MEDS: 0.9 % Sodium Chloride Flush 3 ML SYRINGE IVFLUSH ×3 (00:02→16:35)
[2020-01-31] MEDS: HYDROcodone Bit/Acetam 5/325 TABLET 2 TAB PO ×3 (03:49→14:14)
[2020-01-31] MEDS: amLODIPine Besylate 5 MG TABLET PO (09:07)
[2020-01-31] MEDS: Lidocaine 4 % Patch ADH..PATCH 1 PATCH TRANSDERMA (09:07)
--- NOTE | 2020-01-31 14:29 | P.PNIM_ITS ---
Subjective Subjective Date of Service: 01/31/20 Interval History: seen and examined rib pain better no neurological deficits ROS General - no fevers or chills Cardiovascular - no chest pain Respiratory - no shortness of breath or cough Abdominal- no abdominal pain, nausea, vomiting, diarrhea MSK - rib pain, improved Physical Exam Vital Signs: Vital Signs: Last Vital Signs Temp 97.8 F 01/31/20 11:03 Pulse 88 01/31/20 11:03 Resp 18 01/31/20 11:03 BP 115/64 01/31/20 11:03 Pulse Ox 93 01/31/20 11:03 Body Mass Index 26.4 Const: Other: General - no acute distress, appears comfortable Cardiovascular - regular rate and rhythm, S1-S2 Lungs - normal respiratory effort, clear to auscultation bilaterally, no wheezing Abdomen - soft, non-tender, no rebound or guarding Extremities - no edema bilaterally Neuro - awake and alert, no focal deficits MSK - left chest wall tenderness Objective Data Current Medications Generic Name Dose Route Start Last Admin Trade Name Freq PRN Reason Stop Dose Admin Hydrocodone Bitart/Acetaminophen 2 tab 01/30/20 16:54 01/31/20 14:14 Hydrocodone Bit/Acetam 5/325 Tablet PO 2 tab Q6H PRN Administration Pain, Moderate (Pain Scale 4-6 Amlodipine Besylate 5 mg 01/30/20 09:00 01/31/20 09:07 Amlodipine Besylate 5 Mg Tablet PO 5 mg DAILY JEAN PAUL Administration Protocol Atorvastatin Calcium 10 mg 01/30/20 21:00 01/30/20 20:25 Atorvastatin Calcium 10 Mg Tablet PO 10 mg BEDTIME JEAN PAUL Administration Levothyroxine Sodium 50 mcg 02/01/20 06:30 Levothyroxine Sodium 50 Mcg Tablet PO DAILY@0630 [facility] Lidocaine 1 patch 01/30/20 12:00 01/31/20 09:07 Lidocaine 4 % Patch Adh..Patch TRANSDERMA 1 patch DAILY [facility] Administration Protocol Morphine Sulfate 3 mg 01/30/20 16:54 01/30/20 20:24 Morphine Sulfate 4 Mg/Ml Cartridge IVPUSH 3 mg Q6H PRN Administration Pain, Severe (Pain Scale 7-10) Sodium Chloride 3 ml 01/30/20 08:00 01/31/20 09:08 0.9 % Sodium Chloride Flush 3 Ml Syringe IVFLUSH 3 ml QSHIFT JEAN PAUL Administration Sumatriptan Succinate 0 mg 01/30/20 00:15 01/30/20 12:40 Sumatriptan Succinate 50 Mg Tablet PO 50 mg .COMPLEX JEAN PAUL Administration Trazodone HCl 200 mg 01/30/20 21:00 01/30/20 20:24 Trazodone Hcl 100 Mg Tablet PO 200 mg BEDTIME JEAN PAUL Administration Labs CBC & Chem 7: 01/30/20 05:27 01/30/20 05:27 Assessment and Plan (1) Subdural hematoma: Status: Acute Assessment and Plan: This is a 79-year-old female who sustained a mechanical fall and is admitted for monitoring of a small subdural hematoma. 1. Subdural hematoma repeat CT head now remains neurologically intact neurology consult appreciated 2.Left 6th rib fx pain control no pneumothorax/hematoma 3. hypertension Continue Norvasc Continue other care Full code DVT prophylaxis, mechanical due to brain bleed
[2020-01-31] MEDS: Morphine Sulfate 4 MG/ML CARTRIDGE 3 MG IVPUSH (16:36)
[2020-01-31] MEDS: Atorvastatin Calcium 10 MG TABLET PO (22:33)
[2020-01-31] MEDS: traZODone HCL 100 MG TABLET 200 MG PO (22:33)
[2020-01-31] MEDS: SUMAtriptan succinate 50 MG TABLET PO (23:04)
--- NOTE | 2020-02-01 | CT_ITS ---
EXAMINATION: CT HEAD WITHOUT CONTRAST CLINICAL INFORMATION: Subdural. Headache. COMPARISON: Head CT 01/31/2020. TECHNIQUE: Contiguous axial imaging was performed from the skull base to vertex without intravenous administration of contrast. This CT examination was performed using dose optimization techniques as appropriate, variously including the following: *Automated exposure control *Adjustment of mA and/or kV according to patient size (this includes techniques or standardized protocols for targeted exams where dose is matched to indication/reason for exam; i.e. extremities or head) *Use of iterative reconstruction technique FINDINGS: Stable size of the acute left hemispheric subdural hematoma that continues to measure up to 5 mm in maximal thickness. No significant mass effect. Global cerebral volume loss and mild chronic microangiopathy again noted. There is no hydrocephalus, midline shift, or other herniation pattern. Bustillo to white matter differentiation is diffusely maintained without evidence of an evolved acute territorial infarct. The basilar cisterns are preserved. No significant soft tissue abnormality. No acute osseous abnormality. The paranasal sinuses and the mastoid air cells are well aerated. Advanced degenerative changes involving the left TMJ and more mild degenerative changes involving the right TMJ. CT/CT head/brain wo con IMPRESSION: - Stable size of the acute left hemispheric subdural hematoma that continues to measure up to 5 mm in maximal thickness. No significant mass effect. - Global cerebral volume loss and mild chronic microangiopathy again noted.
[2020-02-01] MEDS: 0.9 % Sodium Chloride Flush 3 ML SYRINGE IVFLUSH ×3 (00:49→16:28)
[2020-02-01] MEDS: Levothyroxine Sodium 50 MCG TABLET PO (06:13)
[2020-02-01 07:07] VITALS: BP 119/65; PULSE 83; RESP 18; TEMP 36.8; O2SAT 91
[2020-02-01] MEDS: amLODIPine Besylate 5 MG TABLET PO (07:37)
[2020-02-01] MEDS: Lidocaine 4 % Patch ADH..PATCH 1 PATCH TRANSDERMA (07:38)
[2020-02-01 11:15] VITALS: BP 140/67; PULSE 83; RESP 20; TEMP 36.8; O2SAT 93
--- NOTE | 2020-02-01 11:40 | P.PNIM_ITS ---
Subjective Subjective Date of Service: 02/01/20 Interval History: seen and examined rib pain better reports not feeling well today, just not myself reports nausea and headache denies any focal symptoms. ambulated with her in the hallway without any Noticeable issues ROS General - no fevers or chills Cardiovascular - no chest pain Respiratory - no shortness of breath or cough Abdominal- no abdominal pain, nausea, vomiting, diarrhea MSK - rib pain, improved Neuro - SALAZAR and nausea Physical Exam Vital Signs: Vital Signs: Last Vital Signs Temp 98.3 F 02/01/20 11:15 Pulse 83 02/01/20 11:15 Resp 20 02/01/20 11:15 BP 140/67 H 02/01/20 11:15 Pulse Ox 93 02/01/20 11:15 Body Mass Index 26.4 Const: Other: General - no acute distress, appears comfortable Cardiovascular - regular rate and rhythm, S1-S2 Lungs - normal respiratory effort, clear to auscultation bilaterally, no wheezing Abdomen - soft, non-tender, no rebound or guarding Extremities - no edema bilaterally Neuro - awake and alert, no focal deficits MSK - left chest wall tenderness Objective Data Current Medications Generic Name Dose Route Start Last Admin Trade Name Freq PRN Reason Stop Dose Admin Hydrocodone Bitart/Acetaminophen 2 tab 01/30/20 16:54 01/31/20 14:14 Hydrocodone Bit/Acetam 5/325 Tablet PO 2 tab Q6H PRN Administration Pain, Moderate (Pain Scale 4-6 Amlodipine Besylate 5 mg 01/30/20 09:00 02/01/20 07:37 Amlodipine Besylate 5 Mg Tablet PO 5 mg DAILY JEAN PAUL Administration Protocol Atorvastatin Calcium 10 mg 01/30/20 21:00 01/31/20 22:33 Atorvastatin Calcium 10 Mg Tablet PO 10 mg BEDTIME JEAN PAUL Administration Levothyroxine Sodium 50 mcg 02/01/20 06:30 02/01/20 06:13 Levothyroxine Sodium 50 Mcg Tablet PO 50 mcg DAILY@0630 JEAN PAUL Administration Lidocaine 1 patch 01/30/20 12:00 02/01/20 07:38 Lidocaine 4 % Patch Adh..Patch TRANSDERMA 1 patch DAILY JEAN PAUL Administration Protocol Morphine Sulfate 3 mg 01/30/20 16:54 01/31/20 16:36 Morphine Sulfate 4 Mg/Ml Cartridge IVPUSH 3 mg Q6H PRN Administration Pain, Severe (Pain Scale 7-10) Ondansetron HCl 4 mg 02/01/20 11:38 Ondansetron Hcl 4 Mg/2 Ml Vial IVPUSH Q8H PRN Nausea and Vomiting Sodium Chloride 3 ml 01/30/20 08:00 02/01/20 07:41 0.9 % Sodium Chloride Flush 3 Ml Syringe IVFLUSH 3 ml QSHIFT JEAN PAUL Administration Sumatriptan Succinate 50 mg 01/31/20 22:30 01/31/20 23:04 Sumatriptan Succinate 50 Mg Tablet PO 50 mg DAILY [id number] PRN Administration Migraine Headache Trazodone HCl 200 mg 01/30/20 21:00 01/31/20 22:33 Trazodone Hcl 100 Mg Tablet PO 200 mg BEDTIME JEAN PAUL Administration Labs CBC & Chem 7: 01/30/20 05:27 01/30/20 05:27 Assessment and Plan (1) Subdural hematoma: Status: Acute Assessment and Plan: This is a 79-year-old female who sustained a mechanical fall and is admitted for monitoring of a small subdural hematoma. 1. Subdural hematoma repeat ct head yesterday showed improvement from prior. patient was clinically d oing well, but this AM feeling worse with increased nausea and headache. remains without any focal deficits, but will check CT head. will likely need an addtional 24 hours of observation to ensure stability of her subdural. 2.Left 6th rib fx pain control no pneumothorax/hematoma 3. hypertension Continue Norvasc Continue other care Full code DVT prophylaxis, mechanical due to brain bleed
[2020-02-01] MEDS: ondansetron HCL 4 MG/2 ML VIAL IVPUSH (12:01)
[2020-02-01 15:27] VITALS: BP 123/67; PULSE 100; RESP 19; TEMP 36; O2SAT 90
[2020-02-01] MEDS: SUMAtriptan succinate 50 MG TABLET PO (16:27)
[2020-02-01 19:30] VITALS: BP 108/62; PULSE 100; RESP 19; TEMP 36.4; O2SAT 92
[2020-02-01] MEDS: traZODone HCL 100 MG TABLET 200 MG PO (20:18)
[2020-02-01] MEDS: Atorvastatin Calcium 10 MG TABLET PO (20:18)
[2020-02-02 00:07] VITALS: BP 135/66; PULSE 87; RESP 18; TEMP 36.5; O2SAT 93
[2020-02-02] MEDS: 0.9 % Sodium Chloride Flush 3 ML SYRINGE IVFLUSH ×2 (00:27→08:22)
[2020-02-02 03:38] VITALS: BP 139/69; PULSE 80; RESP 18; TEMP 37; O2SAT 92
[2020-02-02] MEDS: Levothyroxine Sodium 50 MCG TABLET PO (05:56)
[2020-02-02 08:00] VITALS: BP 153/70; PULSE 90; RESP 18; TEMP 37.1; O2SAT 95
[2020-02-02] MEDS: Lidocaine 4 % Patch ADH..PATCH 1 PATCH TRANSDERMA (08:16)
[2020-02-02 08:18] VITALS: BP 139/69; PULSE 80
[2020-02-02] MEDS: amLODIPine Besylate 5 MG TABLET PO (08:18)
[2020-02-02 11:34] LABS: COVID-19 Test Negative (Negative)
--- NOTE | 2020-02-02 12:10 | P.DS_ITS ---
DS: Providers Provider Date of admission: 01/30/20 00:17 Primary care physician: Veronica Barker MD Consults: 01/30/20 00:17 Consult to Neurology Routine Consulting Provider: [facility] Reason for consultation: subdural hematoma Has provider been notified: Yes DS: Diagnosis Discharge Diagnosis (1) Subdural hematoma: Status: Acute DS: Medications Discharge Medications Home Medications: Home Medications Medication Instructions Recorded Confirmed amlodipine 5 mg tablet 5 mg PO DAILY 12/22/19 01/29/20 levothyroxine 50 mcg tablet 50 mcg PO DAILY 12/22/19 01/29/20 sumatriptan succinate 50 mg tablet See Rx Instructions PO .COMPLEX 12/22/19 01/29/20 trazodone 200 mg PO BEDTIME 01/29/20 01/29/20 Previous Rx's Medication Instructions Recorded zoledronic acid 5 mg/100 mL in See Rx Instructions IV .COMPLEX 01/14/20 mannitol 5 %-water intravenous #100 ml piggybck simvastatin 5 mg tablet 5 mg PO BEDTIME #90 cap 01/29/20 hydrocodone-acetaminophen 2 tab PO Q6H PRN #14 tab 02/02/20 DS: Summary Hospital Course Hospital Course: Patient was observed after fall complicated by subdural hematoma. Other than some dizziness patient did not have any other symptoms. Her dizziness did improve. Her CT head remained stable. She will be discharged home with home PT. Time Spent with Patient Time attestation: Total time spent providing and/or coordinating discharge services: Physical Exam Vital Signs: Vital Signs: Last Vital Signs Temp 98.7 F 02/02/20 08:00 Pulse 80 02/02/20 08:18 Resp 18 02/02/20 08:00 BP 139/69 02/02/20 08:18 Pulse Ox 95 02/02/20 08:00 Body Mass Index 26.4 General: AO X 3, no acute distress Resp: CTA bilateral CVS: S1,S2,RRR GI: soft, non tender, non distended Neuro: motor grossly intact Psych: appropriate affect DS: Data Data Completed and Pending Labs on day of discharge: 01/29/20 21:24 XR ribs LT min 3V w CXR1V Stat 01/29/20 21:25 CT head/brain wo con Stat 01/29/20 21:53 ECG 12 lead EKG Stat EKG Documentation DIRECTED CT cervical spine wo con Stat 01/29/20 22:22 Basic Metabolic Panel Stat Complete Blood Count Auto Diff Stat Partial Thromboplastin Time Stat Prothrombin Time INR Stat 01/29/20 22:44 COVID-19 ID NOW ([facility]) Stat 01/29/20 22:55 Acetaminophen [Tylenol] 650 mg PO ONCE ONE 01/30/20 CT chest wo con Urgent 01/30/20 00:15 SUMAtriptan succinate [Imitrex] See Dose Instructions PO .COMPLEX 01/30/20 00:16 Transfer Order Routine 01/30/20 00:21 Acetaminophen [Tylenol] 650 mg PO ONCE ONE 01/30/20 00:30 Heparin Sodium,Porcine 5,000 unit SUBCUT Q8H 01/30/20 05:27 Basic Metabolic Panel Routine Complete Blood Count Auto Diff Routine 01/30/20 06:41 Acetaminophen [Tylenol] 650 mg PO ONCE ONE 01/30/20 07:52 oxyCODONE HCl Immed Release [Roxicodone] 5 mg PO Q6H PRN 01/30/20 09:00 Levothyroxine Sodium [Synthroid] 50 mcg PO DAILY 01/30/20 12:32 Morphine Sulfate 3 mg IVPUSH ONCE ONE 01/31/20 CT head/brain wo con Stat 02/01/20 CT head/brain wo con Urgent 02/02/20 COVID-19 ID NOW ([facility]) Routine Laboratory Last Values WBC 6.1 X10*3/uL (4.8-10.8) 01/30/20 05:27 RBC 4.02 X10*6/uL (4.20-5.50) L 01/30/20 05:27 Hgb 12.8 g/dl (12.0-16.0) 01/30/20 05:27 Hct 38.4 % (37-47) 01/30/20 05:27 MCV 95.5 fL (80-98) 01/30/20 05:27 MCH 31.8 pg (27.0-33.0) 01/30/20 05:27 MCHC 33.3 g/dl (31.0-35.0) 01/30/20 05:27 RDW 12.4 % (11.0-16.0) 01/30/20 05:27 Plt Count 163 X10*3/uL (160-400) 01/30/20 05:27 MPV 9.8 fL (9.4-12.3) 01/30/20 05:27 Immature Gran % (Auto) 0.5 % (0.0-0.4) H 01/30/20 05:27 Neut % (Auto) 66.2 % (45-73) 01/30/20 05:27 Lymph % (Auto) 23.8 % (20-40) 01/30/20 05:27 [place] % (Auto) 7.5 % (2-11) 01/30/20 05:27 Eos % (Auto) 2.0 % (0-4) 01/30/20 05:27 Baso % (Auto) 0.0 % (0-2) 01/30/20 05:27 Lymph # (Auto) 1.5 X10*3/uL (1.2-4.9) 01/30/20 05:27 [place] # (Auto) 0.5 X10*3/uL (0.1-1.2) 01/30/20 05:27 Eos # (Auto) 0.1 X10*3/uL (0.0-0.4) 01/30/20 05:27 Baso # (Auto) 0.0 X10*3/uL (0.0-0.2) 01/30/20 05:27 Abs Immat Gran (auto) 0.03 X10*3/uL (0.00-0.03) 01/30/20 05:27 Absolute Neuts (auto) 4.1 X10*3/uL (2.0-8.3) 01/30/20 05:27 Absolute Nucleated RBC 0.000 X10*3/uL (0.0-0.012) 01/30/20 05:27 Nucleated RBC % (auto) 0.0 /100WBC (0.0-0.2) 01/30/20 05:27 PT 11.5 SEC (10.8-13.0) 01/29/20 22:22 INR 1.0 (0.9-1.1) 01/29/20 22:22 APTT 32.0 SEC (24.1-38.0) 01/29/20 22:22 Sodium 142 mmol/L (135-145) 01/30/20 05:27 Potassium 3.6 mmol/l (3.3-5.1) 01/30/20 05:27 Chloride 107 mmol/L (96-108) 01/30/20 05:27 Carbon Dioxide 27 mmol/L (22-29) 01/30/20 05:27 Anion Gap 12 (12-20) 01/30/20 05:27 BUN 12 mg/dL (9-16) 01/30/20 05:27 Creatinine 0.68 mg/dL (0.5-1.4) 01/30/20 05:27 Estim Creat Clear Calc 55.3 01/30/20 05:27 Estimated GFR > 60 01/30/20 05:27 Random Glucose 104 mg/dL (60-115) 01/30/20 05:27 Calcium 8.2 mg/dL (8.4-10.2) L 01/30/20 05:27 COVID-19 (WILMA) Negative (Negative) 02/02/20 Unknown COVID-19 Clin Com See Note 02/02/20 Unknown Discharge Plan Discharge Patient Disposition: Home Health Service Referrals: Veronica Barker MD [Primary Care Provider] - Discharge Medications: New hydrocodone-acetaminophen 5-325 mg Tablet 2 tab PO Q6H PRN (Reason: Pain, Moderate (Pain Scale 4-6) Qty: 14 RF: 0 Continued zoledronic ctcv-apznpkud-rrwni [Reclast] 5 mg/100 mL piggyback See Rx Instructions IV .COMPLEX Qty: 100 RF: 0 simvastatin 5 mg tablet 5 mg PO BEDTIME Qty: 90 RF: 0 trazodone 100 mg tablet 200 mg PO BEDTIME RF: 0 levothyroxine 50 mcg tablet 50 mcg PO DAILY RF: 0 amlodipine 5 mg tablet 5 mg PO DAILY RF: 0 sumatriptan succinate 50 mg tablet See Rx Instructions PO .COMPLEX RF: 0 Discharge Orders: Discharge Order (Routine); Ordered 02/02/20 Ordered By: Cayetano Chahal Diet: advance to usual diet Activity on Discharge: As tolerated Visit Report Forms: Patient Portal Discharge page Care Plan Goals: recovery Health Concerns: sDH Plan of Treatment: PT
--- NOTE | 2020-02-02 12:17 | MHC.CM.PN ---
Patient has been medically cleared for dc to home today, with [facility]. CM spoke with Patient and per her approval/choice, a referral has been made to [facility], who is aware of today's dc.IMM addressed and Patient is aware of and in agreement with the dc plan.
--- NOTE | 2020-02-27 19:13 | PC.NURSE ---
LATE ENTRY from 01/31/20: Pt c/o pain, this RN administered two tabs of PRN 5mg/325mg Hydrocodone/Acetominophen at 22:05. Med was not scanned, pt verbalized decrease in pain upon reassessment.
== END 2020-02-02 13:52 | disposition home health service (06) | DRG 86 ==
LOC: HO.ED 21:17 → HO.IMC 01-30 00:27
PROVIDERS: Admitting Provider Internal Medicine; Emergency Provider Internal Medicine; PCP Internal Medicine; Visit Provider Internal Medicine
DX: S06.5X0A Traumatic subdural hemorrhage without loss of consciousness, initial encounter (principal); S22.32XA Fracture of one rib, left side, initial encounter for closed fracture; W10.9XXA Fall (on) (from) unspecified stairs and steps, initial encounter; Y93.9 Activity, unspecified; Y92.009 Unspecified place in unspecified non-institutional (private) residence as the place of occurrence of the external cause; Y99.9 Unspecified external cause status; M81.0 Age-related osteoporosis without current pathological fracture; E03.9 Hypothyroidism, unspecified; R40.2412 Glasgow coma scale score 13-15, at arrival to emergency department; G43.909 Migraine, unspecified, not intractable, without status migrainosus; I10 Essential (primary) hypertension; G47.00 Insomnia, unspecified; Z79.890 Hormone replacement therapy; Z79.899 Other long term (current) drug therapy
CPT/HCPCS: 36415; 70450; 71101; 71250; 72125; 80048; 82565; 84520; 85025; 85610; 85730; 87635; 93005; 96365; 99223; 99285; J2270; J2405; J3489

== ENCOUNTER 2020-03-02 07:47 | Outpatient (REF) | payer MEDICARE, SELFPAY ==
--- NOTE | 2020-03-02 07:52 | MM_ITS ---
EXAMINATION: BONE DENSITOMETRY CLINICAL INDICATION: Osteoporosis. COMPARISON: Baseline BD dated 02/21/2018. CT abdomen and pelvis 05/24/2017 TECHNIQUE: Using a [employer] DXA System (software version: 13.1) manufactured by [employer], dual-energy x-ray absorptiometry was performed of the lumbar spine and left hip. The images are of good technical quality. Summary results are attached. FINDINGS: AP SPINE L1-L2 (excluding L3 and L4): The data of L1-L4 has been changed to exclude the L3 and L4 vertebral bodies, because degenerative changes at these levels may cause overestimation of lumbar spine density. Current: BMD 0.820 g/cm2, Z-score -0.9, T-score -2.9, osteoporosis, 3.7% increase from baseline (<5% change is not significant). Baseline: BMD 0.791 g/cm2. LEFT FEMUR, NECK: Current: BMD 0.735 g/cm2, Z-score 0.1, T-score -2.2, osteopenia. Baseline: BMD 0.715 g/cm2. LEFT FEMUR, TOTAL: Current: BMD 0.814 g/cm2, Z-score 0.6, T-score -1.5, osteopenia, 3.4% increase from baseline (<5% change is not significant). Baseline: BMD 0.787 g/cm2. IDENTIFIED RISK FACTORS: Early menopause, height loss, history of fracture (adult), hysterectomy, bilateral oophorectomy, secondary osteoporosis. HISTORY OF FRACTURE: Wrist. No insufficiency fracture reported. MEDICATIONS: Calcium, vitamin D. MM/XR DEXA axial skeleton IMPRESSION: 1. DIAGNOSIS: Osteoporosis based on the lowest T-score value of -2.9 in the lumbar spine applying World Health Organization criteria. 2. 10-YEAR FRACTURE RISK PREDICTION, FRAX: Major osteoporotic fracture (clinical spine, forearm, hip or shoulder) 24.3%. Hip fracture 7.3%. 3. Treatment Recommendations: NOF guidelines recommend consideration for treatment in postmenopausal women and men age 50 and older presenting with the following: -A hip or vertebral (clinical or morphometric) fracture. -T-score less than or equal to -2.5 at the femoral neck or spine after appropriate evaluation to exclude secondary causes. -Low bone mass at the hip or spine and a 10-year fracture probability by FRAX of greater than or equal to 3% for hip fracture or greater than or equal to 20% for major osteoporotic fracture based on the [place] adapted WHO algorithm. 4. Other Recommendations: All treatment decisions require clinical judgment and consideration of individual patient factors, including patient preferences, comorbidities, previous drug use, risk factors not captured in the FRAX model (e.g. frailty, falls, vitamin D deficiency, increased bone turnover, interval significant decline in bone density) and possible under or overestimation of fracture risk by FRAX. Additional medical evaluation for secondary cause of low bone mineral density may be appropriate. FUTURE SCAN RECOMMENDATION: People with diagnosed cases of osteoporosis or at high risk for fracture should have regular bone mineral density tests. For patients eligible for Medicare, routine testing is allowed once every 2 years. The testing frequency can be increased to one year for patients who have rapidly progressing disease, those who are receiving or discontinuing medical therapy to restore bone mass, or have additional risk factors.
== END 2020-03-02 07:48 | disposition home or self-care (01) ==
LOC: HO.MAMMO 07:47
PROVIDERS: PCP Internal Medicine; Visit Provider Internal Medicine
DX: M81.0 Age-related osteoporosis without current pathological fracture (principal)
CPT/HCPCS: 77080

== ENCOUNTER 2020-03-12 09:48 | Outpatient (REF) | payer MEDICARE, SELFPAY ==
--- NOTE | 2020-03-12 09:47 | CT_ITS ---
EXAMINATION: CT HEAD WITHOUT CONTRAST CLINICAL INFORMATION: Follow-up subdural COMPARISON: CT brain 02/01/2020 and 01/29/2020 TECHNIQUE: Contiguous axial imaging was performed from the skull base to vertex without intravenous administration of contrast. This CT examination was performed using dose optimization techniques as appropriate, variously including the following: *Automated exposure control *Adjustment of mA and/or kV according to patient size (this includes techniques or standardized protocols for targeted exams where dose is matched to indication/reason for exam; i.e. 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 The widest segment of subdural hygroma in the left frontal lobe measures approximately 7 mm on coronal image 118/7. Previously it was seen at the same location with subdural space measuring 5 mm thick. There is no acute hemorrhagic component to suspect any new event or worsening. There is no edema or midline shift. There is no acute intraparenchymal bleed, edema midline shift. The lateral ventricles are symmetrical but enlarged with mild prominence of cortical sulci. The osseous structures and soft tissues are normal. The mastoid air cells and visualized portions of the paranasal sinuses are well aerated. CT/CT head/brain wo con IMPRESSION: 1. Convexity frontoparietal subdural hematoma is again visualized with the depth measuring 7 mm compared to 5 mm on the previous study. There are residual hemorrhagic products seen along the dependent portions, not necessarily new from the previous study 02/01/2020. 2. No new areas of hemorrhage seen to suspect recurrence. A long-term 3 month follow-up is recommended unless patient has a new event.
== END 2020-03-12 09:49 | disposition home or self-care (01) ==
LOC: HO.CT 09:48
PROVIDERS: PCP Internal Medicine; Visit Provider Internal Medicine
DX: S06.5X9A Traumatic subdural hemorrhage with loss of consciousness of unspecified duration, initial encounter (principal); X58.XXXA Exposure to other specified factors, initial encounter; Y93.9 Activity, unspecified; Y92.9 Unspecified place or not applicable; Y99.8 Other external cause status
CPT/HCPCS: 70450

== ENCOUNTER 2020-04-29 09:15 | Outpatient (REF) | payer MEDICARE, SELFPAY ==
[2020-04-29 12:23] LABS: Free T4 (Free Thyroxine) 1.21 ng/dL (0.71-1.85); Thyroid Stimulating Hormone 0.91 uIU/mL (0.32-4.0)
[2020-04-29 12:30] LABS: Alanine Aminotransferase 16 U/L (0-31); Anion Gap 11 (12-20); Aspartate Amino Transferase 16 U/L (5-31); Blood Urea Nitrogen 17 mg/dL (9-16); Calcium 9.2 mg/dL (8.4-10.2); Carbon Dioxide 27 mmol/L (22-29); Chloride 109 mmol/L (96-108); Cholesterol 198 mg/dL; Estimated Glomerular Filt Rate > 60; Glucose Fasting 85 mg/dL (60-99); HDL Cholesterol 59 mg/dL; LDL Cholesterol Calculated 114 mg/dl; Potassium 4.2 mmol/L (3.3-5.1); Sodium 143 mmol/L (135-145); Triglycerides 128 mg/dL
== END 2020-04-29 09:16 | disposition home or self-care (01) ==
LOC: HO.HMGCLDS 09:15
PROVIDERS: PCP Internal Medicine; Visit Provider Internal Medicine
DX: L03.115 Cellulitis of right lower limb (principal); I10 Essential (primary) hypertension; E78.5 Hyperlipidemia, unspecified; E03.9 Hypothyroidism, unspecified; M81.0 Age-related osteoporosis without current pathological fracture
CPT/HCPCS: 36415; 80048; 80061; 82306; 84439; 84443; 84450; 84460

== ENCOUNTER 2020-07-08 09:55 | Day surgery (SDC) | payer MEDICARE, SELFPAY ==
--- NOTE | 2020-06-04 08:35 | ECG_ITS ---
Test Reason : HTN Blood Pressure : / mmHG Vent. Rate : 076 BPM Atrial Rate : 076 BPM P-R Int : 178 ms QRS Dur : 088 ms QT Int : 426 ms P-R-T Axes : 053 032 045 degrees QTc Int : 479 ms Normal sinus rhythm Normal ECG When compared with ECG of 29-JAN-2020 22:16, No significant change was found Referred By: Veronica Barker Electronically Signed By:BALBINA BA
[2020-06-04 08:57] LABS: MANUAL DIFF FLAG NO
[2020-06-04 09:07] LABS: Basophils Percent Auto 0.2 % (0-2); Eosinophils Absolute Auto 0.1 X10*3/uL (0.0-0.4); Eosinophils Percent Auto 2.2 % (0-4); Hematocrit 43.2 % (37-47); Imm Gran Abs Auto 0.01 X10*3/uL (0.00-0.03); Imm Gran Pct Auto 0.2 % (0.0-0.4); Lymphocytes Absolute Auto 1.8 X10*3/uL (1.2-4.9); Lymphocytes Percent Auto 39.4 % (20-40); Mean Corpuscular HGB Conc 32.4 g/dl (31.0-35.0); Mean Corpuscular Hemoglobin 30.2 pg (27.0-33.0); Mean Corpuscular Volume 93.1 fL (80-98); Mean Platelet Volume 9.5 fL (9.4-12.3); Monocytes Absolute Auto 0.2 X10*3/uL (0.1-1.2); Monocytes Percent Auto 5.4 % (2-11); Neutrophils Absolute Auto 2.4 X10*3/uL (2.0-8.3); Neutrophils Percent Auto 52.6 % (45-73); Platelet Count 172 X10*3/uL (160-400); Red Blood Count 4.64 X10*6/uL (4.20-5.50); Red Cell Distribution Width 12.5 % (11.0-16.0); White Blood Count 4.5 X10*3/uL (4.8-10.8)
[2020-06-04 09:37] LABS: Anion Gap 12 (12-20); Blood Urea Nitrogen 14 mg/dL (9-16); Carbon Dioxide 26 mmol/L (22-29); Chloride 108 mmol/L (96-108); Cholesterol 212 mg/dL; Estimated Glomerular Filt Rate > 60; Glucose Fasting 92 mg/dL (60-99); HDL Cholesterol 64 mg/dL; LDL Cholesterol Calculated 131 mg/dl; Potassium 3.8 mmol/L (3.3-5.1); Sodium 142 mmol/L (135-145); Triglycerides 87 mg/dL
[2020-07-05 13:17] VITALS: BMI 26.9
--- NOTE | 2020-07-06 10:39 | P.CONAN_ITS ---
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 Mother No problems noted. Surgical History Surgical History History of back surgery History of bunionectomy History of surgery on wrist History of tonsillectomy and adenoidectomy History of total abdominal hysterectomy and bilateral salpingo-oophorectomy Hx of bilateral cataract extraction Hx of cholecystectomy Hx of flexible sigmoidoscopy Hx of hammer toe correction Social History Social History Household Members: Spouse Housing: House Are you a primary respiratory care specialist to a significant other at home: No Do you presently have visiting nurse or other home services: No Alcohol intake: never Smoking Status: Former smoker Smoking Quit Date: years ago Use of substances other than those prescribed or required for medical reasons: No Have you been hit, kicked, punched, or otherwise hurt by someone within the past year? If so, by whom?: No Are you DNR?: No Advance Directives: No Advance Directives Information Provided: No Advance Directives on File: No Recently lost weight without trying: No Eating poorly because of decreased appetite: No Nutrition Risks: No Nutritional Risk service: No Current occupational status: retired Meds Allergies Allergy/AdvReac Type Severity Reaction Status Date / Time No Known Allergies Allergy Verified 07/05/20 13:12 Home Medications Medication Instructions Recorded Confirmed Last Taken Type amlodipine 5 mg tablet 5 mg PO DAILY 12/22/19 07/05/20 07/08/20 History trazodone 200 mg PO BEDTIME 01/29/20 07/05/20 Unknown History Exam Exam Date and Time: July 06, 2020 1039 Height,Weight and Vital Signs: Height 5 ft 2 in Weight 66.678 kg Pertinent Lab Results Pertinent Lab Results: Laboratory Tests 06/04/20 06/04/20 08:35 08:35 WBC 4.5 L RBC 4.64 Hgb 14.0 Hct 43.2 MCV 93.1 MCH 30.2 MCHC 32.4 RDW 12.5 Plt Count 172 MPV 9.5 Immature Gran % (Auto) 0.2 Neut % (Auto) 52.6 Lymph % (Auto) 39.4 Bartholomew % (Auto) 5.4 Eos % (Auto) 2.2 Baso % (Auto) 0.2 Lymph # (Auto) 1.8 Bartholomew # (Auto) 0.2 Eos # (Auto) 0.1 Baso # (Auto) 0.0 Abs Immat Gran (auto) 0.01 Absolute Neuts (auto) 2.4 Absolute Nucleated RBC 0.000 Nucleated RBC % (auto) 0.0 Sodium 142 Potassium 3.8 Chloride 108 Carbon Dioxide 26 Anion Gap 12 BUN 14 Creatinine 0.77 Estim Creat Clear Calc TNP Estimated GFR > 60 Fasting Glucose 92 Calcium 9.0 Triglycerides 87 Cholesterol 212 LDL Cholesterol, Calc 131 HDL Cholesterol 64 Narrative Narrative: EKG 05/2020 Vent. 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 Mother No problems noted. Surgical History Surgical History History of back surgery History of bunionectomy History of surgery on wrist History of tonsillectomy and adenoidectomy History of total abdominal hysterectomy and bilateral salpingo-oophorectomy Hx of bilateral cataract extraction Hx of cholecystectomy Hx of flexible sigmoidoscopy Hx of hammer toe correction Social History Social History Household Members: Spouse Housing: House Are you a primary respiratory care specialist to a significant other at home: No Do you presently have visiting nurse or other home services: No Alcohol intake: never Smoking Status: Former smoker Smoking Quit Date: years ago Use of substances other than those prescribed or required for medical reasons: No Have you been hit, kicked, punched, or otherwise hurt by someone within the past year? If so, by whom?: No Are you DNR?: No Advance Directives: No Advance Directives Information Provided: No Advance Directives on File: No Recently lost weight without trying: No Eating poorly because of decreased appetite: No Nutrition Risks: No Nutritional Risk service: No Current occupational status: retired Meds Allergies Allergy/AdvReac Type Severity Reaction Status Date / Time No Known Allergies Allergy Verified 07/05/20 13:12 Home Medications Medication Instructions Recorded Confirmed Last Taken Type amlodipine 5 mg tablet 5 mg PO DAILY 12/22/19 07/05/20 07/08/20 History trazodone 200 mg PO BEDTIME 01/29/20 07/05/20 Unknown History Exam Airway Mallampati Class: II TM Dist: >3cm Loose/Missing/Broken Teeth: No Heart: RRR Lungs: CTA Assessment and Plan Assessment Anesthesia Assessment: Anesthesia Plan Discussed and Chart Reviewed Final Anesthetic Review NPO: Yes ASA Class: II Final Preanesthetic Review: Meds/Allgs Chart Reviewed, Consent Obtained/Reviewed and Anes Risks/Benef Reviewed Patient Risk: Low Procedure Risk: Low Anesthetic Plan Anesthetic Plan: MAC: Disposition: Standard PACU
--- NOTE | 2020-07-07 10:21 | HP_ITS ---
DATE OF SERVICE: 07/08/2020 PREOPERATIVE DIAGNOSES: 1. Hallux abductovalgus deformity, left foot. 2. Hammertoe deformity, left second digit. 3. Contracture dislocation of second metatarsophalangeal joint, left foot. PLANNED PROCEDURES: 1. Left foot Cristobal bunionectomy. 2. Hammertoe repair, left second toe. 3. Relocation open reduction internal fixation dislocation second metatarsophalangeal joint, left foot. PAST MEDICAL HISTORY: Arthritis, broken bones, measles, mumps, depression, diverticulosis, thyroid disorder. CURRENT MEDICATIONS: Prolia, Tylenol, simvastatin, amlodipine, estradiol, levothyroxine, trazodone. SURGICAL HISTORY: Disc surgery and right foot surgery. FAMILY HISTORY: Noncontributory. SOCIAL HISTORY: The patient is a nonsmoker. Denies any illicit drug use. No alcohol use. She is retired at this time. ALLERGIES: NO KNOWN DRUG ALLERGIES. HOSPITALIZATIONS: For diverticulitis and for a fall. REVIEW OF SYSTEMS: Within normal limits. HISTORY OF PRESENT ILLNESS: This is an 79-year-old female presents with pain, aching and tenderness in her left foot and her great toe joint, second toe and second dorsal forefoot. This has been present for several months, gradually getting progressively worse with pain with pressure, standing, walking. Has tried rest, change in shoes without any significant improvement in symptoms. PHYSICAL EXAMINATION: GENERAL: This is a pleasant, alert, well-nourished, well-developed, well-hydrated individual who presents in proper attention to hygiene and body habitus, in no acute distress. She is oriented x3. NEUROLOGICAL: Reveals intact sensorium. Pain sensation is normal. Vibratory sensation is intact. Pinprick sensation is normal and denies any anesthesias, burning, paresthesias, or tingling bilaterally. VASCULAR: DP and PT pulses are 3/4 bilaterally. Capillary refill is immediate to all digits. Skin temperature is warm to cool proximal to distal. Hair growth, texture, elasticity, and turgor is normal bilaterally. Pigmentation is normal bilaterally, and there is no edema bilaterally. DERMATOLOGICAL: Reveals normal texture, elasticity and turgor. There are no masses. Interspaces are clear. ORTHOPEDIC: 5/5 in all muscle groups in a symmetrical fashion. There is a bunion deformity noted with medially prominent first metatarsophalangeal joint with lateral tracking of the first metatarsophalangeal joint incompletely reducible on the left foot. Digital deformity as well as digital contracture of the PIP joints 2 through 5 of the left foot. Incompletely reducible weightbearing to push-up test. No over or underlapping, however, there is dorsal contracture and dislocation of the second digit of the left foot. Radiographic exam reveals 3 views of the left foot. Normal bone and soft tissue density consistent with patient's age and sex. A little bit of an elongated third metatarsal digit showed asymmetric joint space narrowing of the PIP joint consistent with hammertoe deformity and enlarged hypertrophied phalangeal head consistent with hammertoe deformity of the second digit as well as dorsal subluxation deviation of the second metatarsophalangeal joint. The first metatarsophalangeal joint revealed increased first intermetatarsal angle and hallux abductus angle consistent with bunion deformity, hypertrophy of the dorsal medial first metatarsal head without subchondral cyst and the sesamoid position is about #6. PLAN: The patient is scheduled for surgery at [facility]. Several different types of bunion surgeries were discussed with the patient including but not limited to a modified Shah bunionectomy with soft tissue release and realignment, Rj/Cristobal osteotomy with soft tissue release and realignment with internal fixation shaft versus base osteotomies and Lapidus fusion. We discussed the risks of surgery and not having surgery, the potential surgical complications which are included but not limited to delayed or nonhealing, excessive scarring, excessive swelling, failure of the procedure, floppy toe, infection, nonunion, numbness, chronic pain, reoccurrence, shortened toe, joint stiffness, and loss of toe, foot, life, or limb. The anesthesia and the usual postoperative course were discussed. No guarantees were given. Discussed that her left bunion is more severe than her right, however, the patient has limited pain with the left foot and does not want recovery time to be more extensive, therefore the procedure such as the base procedure Lapidus. Therefore, we agreed to move forward with the Cristobal bunionectomy. Discussed and reviewed the x-rays with the patient. We decided on performing a Cristobal bunionectomy procedure, hammer toe correction 2nd digit with k-wire fixation and ORIF reduction of dislocated 2nd MTPJ, based on the patient's complaints, medical and social history, physical exam, x-rays, and also the patient's living and driving additions, ability to ambulate with a cast boot and require postoperative period and the patient's individual preference. The patient would like to move forward with surgical treatment. She will obtain preoperative labs as well as medical clearance for surgery and anesthesia. She is made aware to stop any and all blood thinners at least 1 week prior to surgery. She is made aware of the fact that driving may not be allowed during a portion of the postoperative period. [employer] was checked prior to the prescription for narcotic given. The patient can have fill the prescription and discussed the patient to take the lowest dosage of narcotics for shortest duration of time. We are not using Percocet, recommended alternating staggering Tylenol Extra Strength and Motrin 800 mg as needed for discomfort. Also discussed the surgery for hammertoe repair by digital fusion with K-wire fixation and relocating subluxed dislocated second MPJ with release and relocation of soft tissue and internal fixation. Ursula Forrest DPM LP/JOSE J / [id number] CHAVO
[2020-07-08 10:05] VITALS: BP 139/68; PULSE 78; RESP 18; TEMP 36.6; O2SAT 98
[2020-07-08] MEDS: Lactated Ringers 1,000 ML 50 ML IV (10:37)
--- NOTE | 2020-07-08 10:39 | MHC.SHP ---
Pre-Procedural Eval Section A The patient is an INPATIENT: No Changes since office visit: No Cold of Flu in the past 2 weeks, No New Medical Problems, No Changes in Medication and No Patient answered all questions The History & Physical has been completed within 30 days and I have reviewed it.: Yes Section B Chief Complaint: hallux valgus,hammer toe Allergies: Allergies Allergy/AdvReac Type Severity Reaction Status Date / Time No Known Allergies Allergy Verified 07/05/20 13:12 Plan I have reviewed the history and physical and performed a pertinent physical examination on my patient. No changes have occurred unless specified.
--- NOTE | 2020-07-08 11:56 | P.BOP_ITS ---
Brief Operative Note Date of Service: 07/08/20 Pre-op diagnosis: Hallux Abductovalgus left, hammer toe left, contra cture/dislocation 2nd MPJ Left Post-op diagnosis: same Procedure: Left Cristobal bunionectomy, left 2nd hammer toe repair, left 2nd MPJ capsulotomy/tenotomy with ORIF Implants: [place] asnis screws, Kwire Surgeon: Ursula Forrest Anesthesia: MAC and local Was an Protective Signal Installer used for this Procedure?: Yes Protective Signal Installer: Rojas Brown Estimated blood loss (mL): 5 Tourniquet time (min): 41 Pathology: other Condition: stable Disposition: PACU
[2020-07-08 12:00] VITALS: BP 117/53; PULSE 74; RESP 18; TEMP 36.4; O2SAT 95
[2020-07-08 12:15] VITALS: BP 137/77; PULSE 73; RESP 20; O2SAT 96
[2020-07-08 12:46] VITALS: TEMP 36.7
--- NOTE | 2020-07-12 10:38 | OP_ITS ---
SURGEON: Ursula Forrest DPM PREOPERATIVE DIAGNOSES: 1. Hallux abductovalgus deformity, left foot. 2. Hammertoe deformity, left second toe. 3. Dislocation and contracture, left second metatarsophalangeal joint. POSTOPERATIVE DIAGNOSES: 1. Hallux abductovalgus deformity, left foot. 2. Hammertoe deformity, left second toe. 3. Dislocation and contracture, left second metatarsophalangeal joint. PROCEDURES PERFORMED: 1. Cristobal bunionectomy, left foot. 2. Hammertoe correction with K-wire fixation, left foot. 3. Open reduction and internal fixation, dislocated second metatarsophalangeal joint with K-wire fixation, left foot. ESTIMATED BLOOD LOSS: 5 mL. COMPLICATIONS: None. ANESTHESIA: Monitored anesthetic care with local consisting of preoperatively of 18 mL of 0.5% Marcaine plain and 2% lidocaine plain. Hemostasis was a pneumatic ankle tourniquet set at 220 mmHg for 41 minutes. INFORMATION WRITER: Rojas Brown DPM. SPECIMENS: Bone left foot INDICATIONS FOR SURGERY: The patient had painful bunion deformity as well as a hammertoe and contracture of the second metatarsophalangeal joint on clinical and x-ray exam. The patient has tried conservative therapy without any relief. The above-mentioned surgery was discussed in detail with the patient including risks, benefits, and possible complications. No guarantees were given, and written and oral informed consent was obtained. PROCEDURE IN DETAIL: The patient was brought into operating room, placed on the operating table in a supine position. 2 g of cefazolin was administered as a prophylactic preoperative antibiotic. The left foot was anesthetized with the above-mentioned local anesthetic and the left foot was scrubbed, prepped, and draped in a sterile manner. Attention was directed to the left foot. The pneumatic ankle tourniquet was inflated. Attention was first directed to the first metatarsophalangeal joint. The incision was made overlying the first MTPJ approximately 10 cm in length. The incision was deepened down to subcutaneous tissue. Great care being taken to retract vital, neuro, and vascular structures and all bleeders were cauterized as necessary. A medial capsulorrhaphy was made medial and parallel to the extensor tendons. The soft tissues were freed from their osseous attachments and the head and the shaft of the first metatarsal was freed from its soft tissue adhesions. The medial eminence was resected and passed from my operative site. Then via the same incision, attention was directed to the first interspace, where a lateral release was performed consisting of the deep transverse intermetatarsal ligament, sesamoidal ligament, and the adductor tendon were transected allowing the head of the first metatarsal to drift into a more corrected position. Attention was then directed back to the first metatarsal head, where a V type osteotomy was created with wings directed plantar proximally and dorsal proximally with a long arm of the dorsal cut. The capital fragment was then translocated laterally and impacted upon the first metatarsal head. Then the osteotomy was temporally fixated and two 3-0 Yu Asnis screws were administered under standard technique and all guidewires were removed. The remaining medial eminence was resected and passed from my operative site. The wound was irrigated with normal sterile saline. A medial capsulorrhaphy was made excising a V shape of the medial capsule redundancy and medial capsule was reapproximated with 3-0 Vicryl and then a piece of AmnioFix was placed and the capsule was reapproximated with 3-0 Vicryl in a continuous running fashion. The skin was then reapproximated with 4-0 Monocryl and the ZipLine was placed over the incision. Attention was directed to the 2nd toe, where an incision was made overlying the 2nd digit PIP joint. The soft tissues were freed about the head of the proximal phalanx. The transverse tenotomy was made at the level of the PIP joint and the head of the proximal phalanx was reflected. The head of the proximal phalanx was then resected with power instrumentation and passed from the operative site. The wound was irrigated with copious amounts of normal sterile saline. The dorsal incision was then elongated proximally over the second metatarsophalangeal joint, where a tenotomy and capsulotomy was made and McGlamry elevator was introduced to free up any adhesions of the second metatarsophalangeal joint. Using a K-wire, the K-wire was placed from distal to proximal through the second digit into the second metatarsal head to serve as temporary fixation, that will be pulled later in the office. The 0.054 K-wire was then bent, cut, and capped. The foot was loaded to her represent weightbearing and there was excellent correction of the bunion deformity as well as relocation of the second metatarsophalangeal joint and straightening of the hammertoe deformity of the second digit. The wound was irrigated again with copious amounts of normal sterile saline. The tendinous structures were reapproximated with 3-0 Vicryl. The skin was reapproximated with 4-0 nylon in a continuous running fashion. A postoperative injection of 5 mL of 0.5% Marcaine plain was administered. The foot was then dressed with Betadine-soaked gauze, 4x4s, fluffs, Kerlix, cast padding, and an Kash bandage. The pneumatic ankle tourniquet was deflated. Prompt capillary refill was noted to all 5 digits. The patient tolerated procedure and anesthesia well. The patient was transferred to the recovery room with vital signs stable and vascular status at preoperative levels. Following a period of postoperative recovery, the patient will be discharged home with written and oral postoperative instructions. The patient is to take Percocet for breakthrough pain and Motrin as needed. The patient can be partial weightbearing to the left foot with a surgical shoe and crutches or a walker. The patient is to follow up in my office for all postoperative followup care and if any problems arise. Ursula Forrest DPM LP/JOSE J / [id number] CHAVO
== END 2020-07-08 13:05 | disposition home or self-care (01) ==
LOC: HO.SSS 09:56
PROVIDERS: Absent Provider Internal Medicine; PCP Internal Medicine; Visit Provider Podiatrist
PROC: (CPT 28292; principal; 2020-07-08 11:30)
DX: M20.12 Hallux valgus (acquired), left foot (principal); M21.612 Bunion of left foot; M20.42 Other hammer toe(s) (acquired), left foot; M24.575 Contracture, left foot; I10 Essential (primary) hypertension; Z79.899 Other long term (current) drug therapy; Z87.891 Personal history of nicotine dependence
CPT/HCPCS: 28296; 28285; 36415; 80048; 80061; 85025; 88304; 88311; 93005; C1713; J0690; J1100; J2405; J3010; J3590

== ENCOUNTER 2020-11-08 06:31 | Outpatient (REF) | payer MEDICARE, SELFPAY ==
[2020-11-08 11:58] LABS: Alanine Aminotransferase 17 U/L (0-31); Aspartate Amino Transferase 16 U/L (5-31); Cholesterol 193 mg/dL; HDL Cholesterol 61 mg/dL; LDL Cholesterol Calculated 103 mg/dl; Triglycerides 146 mg/dL
== END 2020-11-08 06:32 | disposition home or self-care (01) ==
LOC: HO.HMGCLDS 06:31
PROVIDERS: PCP Internal Medicine; Visit Provider Internal Medicine
DX: E78.00 Pure hypercholesterolemia, unspecified (principal)
CPT/HCPCS: 36415; 80061; 84450; 84460

== ENCOUNTER 2020-12-17 06:50 | Outpatient (REF) | payer MEDICARE, SELFPAY ==
[2020-12-17 12:10] LABS: Albumin Level 4.3 g/dL (3.5-5.0); Anion Gap 13 (12-20); Blood Urea Nitrogen 16 mg/dL (9-16); Calcium 9.2 mg/dL (8.4-10.2); Carbon Dioxide 23 mmol/L (22-29); Chloride 110 mmol/L (96-108); Estimated Glomerular Filt Rate > 60; Glucose Random 97 mg/dL (60-115); Phosphorus 3.4 mg/dL (2.7-4.5); Potassium 3.8 mmol/L (3.3-5.1); Sodium 142 mmol/L (135-145)
[2020-12-17 12:34] LABS: Free T4 (Free Thyroxine) 1.13 ng/dL (0.71-1.85); Thyroid Stimulating Hormone 2.82 uIU/mL (0.32-4.0); Vitamin D 25-OH Total 46.5 ng/mL (>30)
[2020-12-20 12:36] LABS: Calcium, Ionized 4.9 mg/dL (4.8-5.6)
[2020-12-21 01:37] LABS: Calcium (PTHI) 9.2 mg/dL (8.6-10.4); PTHI 40 pg/mL (14-64)
[2020-12-22 15:36] LABS: Alkaline Phosphatase Bone 12.9 mcg/L (see note)
[2020-12-27 21:42] LABS: N-Telopeptide 49 (see note); NTXCreaRU 24 mg/dL (20-275)
== END 2020-12-17 06:51 | disposition home or self-care (01) ==
LOC: HO.HMGCLDS 06:50
PROVIDERS: PCP Internal Medicine; Visit Provider Internal Medicine
DX: M81.0 Age-related osteoporosis without current pathological fracture (principal); E55.9 Vitamin D deficiency, unspecified
CPT/HCPCS: 36415; 80048; 82040; 82306; 82330; 82523; 83970; 84075; 84100; 84439; 84443

== ENCOUNTER → 2020-12-20 08:28 | Outpatient (BNVA) | payer MEDICARE, SELFPAY | PROVIDERS: PCP Internal Medicine; Visit Provider Internal Medicine | DX: M81.0 Age-related osteoporosis without current pathological fracture (principal); E55.9 Vitamin D deficiency, unspecified | CPT/HCPCS: Q3014 ==

== ENCOUNTER 2021-03-29 09:50 | Outpatient (REF) | payer MEDICARE, SELFPAY ==
[2021-03-29 10:38] LABS: Blood Urea Nitrogen 19 mg/dL (9-16); Estimated Glomerular Filt Rate > 60
== END 2021-03-29 09:51 | disposition home or self-care (01) ==
LOC: HO.MDS 09:50
PROVIDERS: PCP Internal Medicine; Visit Provider Internal Medicine
DX: M81.0 Age-related osteoporosis without current pathological fracture (principal)
CPT/HCPCS: 36415; 82565; 84520; 96365; J3489

== ENCOUNTER 2021-05-09 07:08 | Outpatient (REF) | payer MEDICARE, SELFPAY ==
[2021-05-09 12:28] LABS: Alanine Aminotransferase 17 U/L (0-31); Anion Gap 12 (12-20); Aspartate Amino Transferase 16 U/L (5-31); Blood Urea Nitrogen 16 mg/dL (9-16); Calcium 9.3 mg/dL (8.4-10.2); Carbon Dioxide 25 mmol/L (22-29); Chloride 107 mmol/L (96-108); Cholesterol 233 mg/dL; Estimated Glomerular Filt Rate > 60; Glucose Fasting 87 mg/dL (60-99); HDL Cholesterol 52 mg/dL; LDL Cholesterol Calculated 147 mg/dl; Potassium 4.2 mmol/L (3.3-5.1); Sodium 140 mmol/L (135-145); Triglycerides 170 mg/dL
== END 2021-05-09 07:09 | disposition home or self-care (01) ==
LOC: HO.HMGCLDS 07:08
PROVIDERS: Visit Provider Internal Medicine
DX: E78.00 Pure hypercholesterolemia, unspecified (principal); I10 Essential (primary) hypertension
CPT/HCPCS: 36415; 80048; 80061; 84450; 84460

== ENCOUNTER 2021-08-12 14:21 | Outpatient (REF) | payer MEDICARE, SELFPAY ==
[2021-08-12 16:49] LABS: Alanine Aminotransferase 25 U/L (0-31); Albumin Level 4.4 g/dL (3.5-5.0); Alkaline Phosphatase 51 U/L (39-117); Anion Gap 11 (12-20); Aspartate Amino Transferase 18 U/L (5-31); Bilirubin Total 0.3 mg/dL (0.0-1.0); Blood Urea Nitrogen 14 mg/dL (9-16); Calcium 9.3 mg/dL (8.4-10.2); Carbon Dioxide 26 mmol/L (22-29); Chloride 106 mmol/L (96-108); Estimated Glomerular Filt Rate > 60; Glucose Random 96 mg/dL (60-115); Phosphorus 3.7 mg/dL (2.7-4.5); Potassium 3.9 mmol/L (3.3-5.1); Sodium 139 mmol/L (135-145); Total Protein 6.7 g/dL (6.5-8.0)
[2021-08-12 17:12] LABS: Vitamin D 25-OH Total 47.9 ng/mL (>30)
[2021-08-15 16:21] LABS: PTHI 28 pg/mL (16-77)
[2021-08-16 09:50] LABS: Calcium (PTHI) 9.4
== END 2021-08-12 14:22 | disposition home or self-care (01) ==
LOC: HO.HMGCLDS 14:21
PROVIDERS: PCP Internal Medicine; Visit Provider Internal Medicine
DX: E55.9 Vitamin D deficiency, unspecified (principal); M81.0 Age-related osteoporosis without current pathological fracture
CPT/HCPCS: 36415; 80053; 82306; 83970; 84100

== ENCOUNTER 2021-08-15 07:13 | Outpatient (REF) | payer MEDICARE, SELFPAY ==
[2021-08-19 16:47] LABS: N-Telopeptide 18 (see note); NTXCreaRU 27 mg/dL (20-275)
== END 2021-08-15 07:14 | disposition home or self-care (01) ==
LOC: HO.HMGCLNP 07:13
PROVIDERS: Visit Provider Internal Medicine
DX: M81.0 Age-related osteoporosis without current pathological fracture (principal)
CPT/HCPCS: 82523

== ENCOUNTER → 2021-08-17 08:38 | Outpatient (BNVA) | payer MEDICARE, SELFPAY | PROVIDERS: PCP Internal Medicine; Visit Provider Internal Medicine | DX: M81.0 Age-related osteoporosis without current pathological fracture (principal); E55.9 Vitamin D deficiency, unspecified; E03.9 Hypothyroidism, unspecified | CPT/HCPCS: Q3014 ==

== ENCOUNTER 2021-11-09 06:16 | Outpatient (REF) | payer MEDICARE, SELFPAY ==
[2021-11-09 12:01] LABS: Alanine Aminotransferase 19 U/L (0-31); Aspartate Amino Transferase 16 U/L (5-31); Cholesterol 191 mg/dL; HDL Cholesterol 53 mg/dL; LDL Cholesterol Calculated 110 mg/dl; Triglycerides 141 mg/dL
== END 2021-11-09 06:17 | disposition home or self-care (01) ==
LOC: HO.HMGCLDS 06:16
PROVIDERS: PCP Internal Medicine; Visit Provider Internal Medicine
DX: E78.00 Pure hypercholesterolemia, unspecified (principal)
CPT/HCPCS: 36415; 80061; 84450; 84460

== ENCOUNTER → 2022-02-09 12:43 | Outpatient (REF) | payer MEDICARE, SELFPAY ==
--- NOTE | ~2022-02-09 | US_ITS ---
EXAMINATION: US EXTRACRANIAL CAROTID DUPLEX, BILATERAL CLINICAL INFORMATION: Partial retinal artery occlusion, left COMPARISON: None TECHNIQUE: Real-time ultrasound and Doppler techniques (integrating B-mode 2-D vascular images, Doppler spectral analysis and color-flow Doppler imaging) were utilized to interrogate the extracranial carotid arteries, the vertebral arteries and proximal subclavian arteries bilaterally. The degree of stenosis is determined by criteria similar to NASCET. FINDINGS: Right Side: 1. There is mild partially calcified atherosclerotic plaque seen in the bifurcation/proximal ICA region. 2. The common carotid artery PSV proximally is 86.9 cm/s and distally 65.4 cm/s. 3. The proximal internal carotid artery velocities are 48 cm/s systolic and 13.3 cm/s diastolic. 4. The proximal external carotid artery PSV is 68.5 cm/s. 5. The vertebral artery shows antegrade flow. 6. The subclavian artery waveforms are normal. Left Side: 1. There is mild partially calcified atherosclerotic plaque seen in the bifurcation/proximal ICA region. 2. The common carotid artery PSV proximally is 71.1 cm/s and distally 52.9 cm/s. 3. The proximal internal carotid artery velocities are 70.9 cm/s systolic and 24.7 cm/s diastolic. 4. The proximal external carotid artery PSV is 61.4 cm/s. 5. The vertebral artery shows antegrade flow. 6. The subclavian artery waveforms are 58.8. US/US carotid duplex BI IMPRESSION: 1. RIGHT: Minimal, non-hemodynamically significant stenosis of the proximal right internal carotid artery corresponding to a 0-49% stenosis by velocity criteria. 2. LEFT: Minimal, non-hemodynamically significant stenosis of the proximal left internal carotid artery corresponding to a 0-49% stenosis by velocity criteria.
--- NOTE | 2022-02-09 13:52 | CA_ITS ---
Transthoracic Echocardiogram Patient (Last, First, Middle): Fani Faust M Gender: Female Date of : 1940 Age: 81 Procedure Date: 02/09/2022 Procedure Type: Transthoracic Echocardiogram Location: OP Height: 157.48 cm Weight: 60.33 kg BSA: 1.61 m2 Heart Rate: bpm BP: 110 / 70 mmHg Proof Press Operator: TO Referring MD: Veronica Barker MD Symptoms: H34.212 - Partial retinal artery occlusion, left eye Study Quality: Fair ECG Rhythm: Sinus Conclusions: - The left ventricular systolic function is low normal. The visually estimated ejection fraction is between 50-55%. - There is mild calcification of the aortic valve. - There is mild mitral annular calcification. Findings Left Ventricle Normal left ventricular cavity size. The left ventricular systolic function is low normal. The visually estimated ejection fraction is between 50-55%. There is no evidence of regional wall motion abnormalities. Diastolic function is normal for age. There is mild septal asymmetric hypertrophy. Right Ventricle Normal right ventricular cavity size and systolic function. Atria Both atria are normal in size. Aortic Valve There is a normal trileaflet aortic valve. There is mild calcification of the aortic valve. There is no aortic valve stenosis. There is no aortic valve regurgitation. Mitral Valve There is mild anterior mitral leaflet thickening. There is mild mitral annular calcification. There is mild mitral valve regurgitation. There is no mitral valve stenosis. Pulmonic Valve There is trace pulmonic valve regurgitation. Tricuspid Valve Normal tricuspid valve structure. There is trace tricuspid valve regurgitation. There is no evidence of pulmonary hypertension. Great Vessels The aortic annulus, sinuses of valsalva, and asc aorta are normal in size. Venous The inferior vena cava is normal in size and collapses less than 50% with inspiration. Pericardium/Pleural There is no evidence of pericardial effusion. Prior Study Comparison Changes noted compared to prior study dated: 11/27/2012. LVEF slightly lower. Could also be inter-observer variability. Measurements 2D Linear Measurements IVSd: 1.27 0.6-0.9/0.6-1.0 cm LVIDd: 4.18 3.9-5.3/4.2-5.9 cm LVIDd Index: 2.60 2.4-3.2/2.2-3.1 cm/m2 LVIDs: 2.79 2.0-3.6 cm LVPWd: 0.95 0.7-1.1 cm LA Diam: 3.10 2.7-3.8/3.0-4.0 cm LAIDs Index: 1.93 1.5-2.3 cm/m2 LV Mass: 196.80 67-162/88-224 g LV Mass Index: 122.24 43-95/49-115 g/m2 LVOT Diam: 2.20 3.0+(-)1.3 cm 2D Systolic Function EF 4C: 54.60 >55% EF 2C: 52.60 >55% EF BiP: 55.00 >55% Mitral Valve MV Pk E: 0.69 MV PK A: 0.94 MV Decel Time: 191.00 E/A: 0.70 E'Lateral: 6.53 E'Medial: 5.22 E/E' Med: 13.10 E/E' Lat: 10.50 PHT: 56.00 MVA PHT: 3.93 Decel Harris: 3.58 Aortic Valve AoV Pk Sylvester: 1.46 AoV Mn Sylvester: 1.01 AoV VTI: 0.32 AoV Pk Grad: 9.00 Aov Mn Grad: 5.00 SAMY Cont.VTI: 1.94 LVOT LVOT Pk Sylvester: 0.78 LVOT Mn Sylvester: 0.52 LVOT VTI: 0.16 LVOT Pk Grad: 2.00 LVOT Mn Grad: 1.00 LVOT Diam: 2.20 LVOT Area: 3.80 Diastolic Function MV Pk E: 0.69 MV Pk A: 0.94 E/A: 0.70 E'Medial: 5.22 E/E' Med: 13.10 E' Laterial: 6.53 E/E' Lat: 10.50 Right Ventricle TAPSE (mm): 21.50 TVS' Sylvester: 11.90 Tricuspid Valve TR Pk Sylvester: 2.39 TR Pk Grad: 23.00 RA Press: 8.00 RVSP: 31.00 Great Vessels Aorta Sinus of Valsalva: 3.23 2.0-3.5 cm Ao Asc: 3.40 2.1-3.4 cm Updated in Other Vendor System with Status of Final Wilbur Aranda MD electronically signed on 02/10/2022 2:53:59 PM with status of Final
== END ==
LOC: HO.CARD 12:43
PROVIDERS: PCP Internal Medicine; Visit Provider Internal Medicine
DX: H34.212 Partial retinal artery occlusion, left eye (principal); I10 Essential (primary) hypertension; E03.9 Hypothyroidism, unspecified; E78.00 Pure hypercholesterolemia, unspecified
CPT/HCPCS: 93306; 93880

== ENCOUNTER 2022-03-07 09:04 | Outpatient (REF) | payer MEDICARE, SELFPAY ==
--- NOTE | ~2022-03-07 | MM_ITS ---
EXAMINATION: BONE DENSITOMETRY CLINICAL INDICATION: Age-related osteoporosis without current pathological fracture. COMPARISON: Previous BD dated 03/02/2020 and baseline BD dated 02/21/2018. TECHNIQUE: Using a Rowl DXA System (software version: 13.1) manufactured by [employer], dual-energy x-ray absorptiometry was performed of the lumbar spine and left hip. The images are of good technical quality. Summary results are attached. FINDINGS: AP SPINE L1-L2 (excluding L3 and L4): The data of L1-L4 has been changed to exclude the L3 and L4 vertebral bodies, because degenerative changes at these levels may cause overestimation of lumbar spine density. Current: BMD 0.842 g/cm2, Z-score -0.6, T-score -2.7, osteoporosis, 2.7% increase from previous, 6.4% increase from baseline (<5% change is not significant). Prior: BMD 0.820 g/cm2. Baseline: BMD 0.791 g/cm2. LEFT FEMUR, NECK: Current: BMD 0.745 g/cm2, Z-score 0.3, T-score -2.1, osteopenia. Prior: BMD 0.735 g/cm2. Baseline: BMD 0.715 g/cm2. LEFT FEMUR, TOTAL: Current: BMD 0.817 g/cm2, Z-score 0.8, T-score -1.5, osteopenia, 0.4% increase from previous, 3.8% increase from baseline (<5% change is not significant). Prior: BMD 0.814 g/cm2. Baseline: BMD 0.787 g/cm2. IDENTIFIED RISK FACTORS: History of adult fracture. Secondary osteoporosis (early menopause). Hysterectomy. Bilateral oophorectomy. HISTORY OF FRACTURE: Wrist. MEDICATIONS: Calcium supplement and/or multivitamin. Vitamin D. MM/XR DEXA axial skeleton IMPRESSION: 1. DIAGNOSIS: Osteoporosis based on the lowest T-score value of -2.7 in the lumbar spine applying World Health Organization criteria. 2. 10-YEAR FRACTURE RISK PREDICTION, FRAX: According to the guidelines, FRAX calculation should only be performed on patients in the osteopenia bone density category.?Therefore, FRAX was not performed on this patient.? 3. Treatment Recommendations: NOF guidelines recommend consideration for treatment in postmenopausal women and men age 50 and older presenting with the following: -A hip or vertebral (clinical or morphometric) fracture. -T-score less than or equal to -2.5 at the femoral neck or spine after appropriate evaluation to exclude secondary causes. -Low bone mass at the hip or spine and a 10-year fracture probability by FRAX of greater than or equal to 3% for hip fracture or greater than or equal to 20% for major osteoporotic fracture based on the [place] adapted WHO algorithm. 4. Other Recommendations: All treatment decisions require clinical judgment and consideration of individual patient factors, including patient preferences, comorbidities, previous drug use, risk factors not captured in the FRAX model (e.g. frailty, falls, vitamin D deficiency, increased bone turnover, interval significant decline in bone density) and possible under or overestimation of fracture risk by FRAX. Additional medical evaluation for secondary cause of low bone mineral density may be appropriate. FUTURE SCAN RECOMMENDATION: People with diagnosed cases of osteoporosis or at high risk for fracture should have regular bone mineral density tests. For patients eligible for Medicare, routine testing is allowed once every 2 years. The testing frequency can be increased to one year for patients who have rapidly progressing disease, those who are receiving or discontinuing medical therapy to restore bone mass, or have additional risk factors.
== END 2022-03-07 09:05 | disposition home or self-care (01) ==
LOC: HO.MAMMO 09:04
PROVIDERS: PCP Internal Medicine; Visit Provider Internal Medicine
DX: Z13.820 Encounter for screening for osteoporosis (principal); Z78.0 Asymptomatic menopausal state; M81.0 Age-related osteoporosis without current pathological fracture
CPT/HCPCS: 77080

== ENCOUNTER 2022-03-16 09:05 | Outpatient (REF) | payer MEDICARE, SELFPAY ==
[2022-03-16 11:38] LABS: Alanine Aminotransferase 17 U/L (0-31); Albumin Level 4.4 g/dL (3.5-5.0); Alkaline Phosphatase 59 U/L (39-117); Anion Gap 12 (12-20); Aspartate Amino Transferase 18 U/L (5-31); Bilirubin Total 0.5 mg/dL (0.0-1.0); Blood Urea Nitrogen 14 mg/dL (9-16); Calcium 9.3 mg/dL (8.4-10.2); Carbon Dioxide 26 mmol/L (22-29); Chloride 105 mmol/L (96-108); Estimated Glomerular Filt Rate > 60; Glucose Random 101 mg/dL (60-115); Phosphorus 3.9 mg/dL (2.7-4.5); Potassium 3.9 mmol/L (3.3-5.1); Sodium 139 mmol/L (135-145); Total Protein 6.7 g/dL (6.5-8.0)
[2022-03-16 11:58] LABS: Free T4 (Free Thyroxine) 1.29 ng/dL (0.71-1.85); Thyroid Stimulating Hormone 2.08 uIU/mL (0.32-4.0); Vitamin D 25-OH Total 46.6 ng/mL (>30)
[2022-03-17 10:48] LABS: Calcium (PTHI) 9.3 mg/dL (8.6-10.4); PTHI 36 pg/mL (16-77)
[2022-03-21 22:34] LABS: Alkaline Phosphatase Bone 10.8 mcg/L (see note)
[2022-03-24 05:54] LABS: N-Telopeptide 22 (see note); NTXCreaRU 22 mg/dL (20-275)
== END 2022-03-16 09:06 | disposition home or self-care (01) ==
LOC: HO.HMGCLDS 09:05
PROVIDERS: PCP Internal Medicine; Visit Provider Internal Medicine
DX: E03.9 Hypothyroidism, unspecified (principal); E55.9 Vitamin D deficiency, unspecified; M81.0 Age-related osteoporosis without current pathological fracture
CPT/HCPCS: 36415; 80053; 82306; 82523; 83970; 84075; 84100; 84439; 84443

== ENCOUNTER → 2022-03-22 12:27 | Outpatient (BNVA) | payer MEDICARE, SELFPAY | PROVIDERS: PCP Internal Medicine; Visit Provider Internal Medicine | DX: M81.0 Age-related osteoporosis without current pathological fracture (principal); E55.9 Vitamin D deficiency, unspecified; E03.9 Hypothyroidism, unspecified | CPT/HCPCS: 99212 ==

== ENCOUNTER → 2022-04-03 10:01 | Outpatient (BNVA) | payer MEDICARE, SELFPAY | PROVIDERS: PCP Internal Medicine; Visit Provider Internal Medicine Cardiovascular Disease | DX: I10 Essential (primary) hypertension (principal); E78.00 Pure hypercholesterolemia, unspecified; H34.212 Partial retinal artery occlusion, left eye | CPT/HCPCS: 93005; 99202 ==

== ENCOUNTER 2022-04-07 06:02 | Outpatient (REF) | payer MEDICARE, SELFPAY ==
[2022-04-07 12:11] LABS: Blood Urea Nitrogen 14 mg/dL (9-16); Estimated Glomerular Filt Rate > 60
== END 2022-04-07 06:03 | disposition home or self-care (01) ==
LOC: HO.HMGCLDS 06:02
PROVIDERS: PCP Internal Medicine; Visit Provider Internal Medicine
DX: M81.0 Age-related osteoporosis without current pathological fracture (principal)
CPT/HCPCS: 36415; 82565; 84520

== ENCOUNTER 2022-04-11 09:29 | Outpatient (REF) | payer MEDICARE, SELFPAY | END 2022-04-11 09:30 | disposition home or self-care (01) | LOC: HO.MDS 09:29 | PROVIDERS: Visit Provider Internal Medicine | DX: M81.0 Age-related osteoporosis without current pathological fracture (principal) | CPT/HCPCS: 96365; J3489 ==

== ENCOUNTER 2022-05-08 07:11 | Outpatient (REF) | payer MEDICARE, SELFPAY ==
[2022-05-08 12:23] LABS: Alanine Aminotransferase 21 U/L (0-31); Aspartate Amino Transferase 18 U/L (5-31); Cholesterol 124 mg/dL; Glucose Fasting 100 mg/dL (60-99); HDL Cholesterol 50 mg/dL; LDL Cholesterol Calculated 54 mg/dl; Triglycerides 104 mg/dL
== END 2022-05-08 07:12 | disposition home or self-care (01) ==
LOC: HO.HMGCLDS 07:11
PROVIDERS: PCP Internal Medicine; Visit Provider Internal Medicine
DX: E78.5 Hyperlipidemia, unspecified (principal); H34.212 Partial retinal artery occlusion, left eye; E78.00 Pure hypercholesterolemia, unspecified; I10 Essential (primary) hypertension
CPT/HCPCS: 36415; 80061; 82947; 84450; 84460

== ENCOUNTER 2022-09-06 08:37 | Outpatient (AMB) | payer MEDICARE, SELFPAY ==
--- NOTE | 2022-09-06 09:02 | A.OFFVIS_ITS ---
Intake Vital Signs 09/06/22 09:03 Height 5 ft 1 in Weight 140 lb 3.424 oz BMI 26.5 BP 120/82 Blood Pressure Location Lt brachial Position Sitting Pulse 75 Pulse Source Pulse Oximeter Intake Visit Reasons: 5 mth fu Intake Note: 5 month follow up. Harness Inspector Required: No Accompanied by: Self / Same As Patient Allergies No Known Allergies Allergy (Verified 09/06/22 09:04) Medication List - Last Reconciled 09/06/22 by Ruddy Cleveland MD amlodipine 5 mg PO DAILY 90 days aspirin (Adult Low Dose Aspirin) 81 mg PO DAILY atorvastatin 40 mg PO BEDTIME 90 days levothyroxine 50 mcg PO QAM sumatriptan succinate 50 mg PO DAILY PRN trazodone 200 mg PO BEDTIME zoledronic [id number] 5 mg/100 mL 1 ea IV ONCE HPI HPI Comments History of Present Illness Details 81-year-old female who is referred to us because she was noticed to have Hollenhorst plaque in left eye on her routine ophthalmologic examination. She subsequent to that had an echocardiogram which showed normal ejection fraction of 50-55%. She had mild calcification of the aortic valve. No significant valvular disease otherwise was noticed. She has background history of hypertension hyperlipidemia. She also had carotid study which showed minimal plaque in both carotids. She has been taking simvastatin 10 mg once a day. She has no chest pain or shortness of breath. Otherwise active in her daily life without any functional limitations. 09/06/22: For follow-up. She has been doing fine. No chest discomfort or shortness of breath. No urological or visual complaints. She was started on atorvastatin 40 mg on last visit and her LDL cholesterol is 54. Total cholesterol 124, triglyceride 104 and HDL 50. Blood pressure control is good. She is taking baby aspirin. [facility], LAT[facility] Medical History Acquired hammer toe deformity of lesser toe of left foot Hallux valgus (acquired), left foot Hollenhorst plaque, left eye HTN (hypertension) Hypothyroidism Migraine Osteoporosis Subdural hematoma, post-traumatic Vitamin D deficiency Surgical History History of back surgery History of bunionectomy History of surgery on wrist History of tonsillectomy and adenoidectomy History of total abdominal hysterectomy and bilateral salpingo-oophorectomy Hx of bilateral cataract extraction Hx of cholecystectomy Hx of flexible sigmoidoscopy Hx of foot surgery Hx of hammer toe correction Family History Father No problems noted. Mother No problems noted. Brother Heart disease Brother Heart attack Social History Household Members: Spouse Housing: House Are you a primary wild animal caretaker to a significant other at home: No Do you presently have visiting nurse or other home services: No Alcohol intake: current Alcohol intake frequency: holidays/special occasions only Patient Tobacco Use Status: Former Tobacco user Quit Date: 1978 Smoked: 10 +/- e-Cigarette/Vaping Use: Never Used service: No Current occupational status: retired Cognitive needs: No Hearing needs: No Vision needs: Yes Review of Systems Const Denies weakness ENT Denies dizziness Card Denies chest pain, Denies chest pain with activity, Denies syncope, Denies rapid heart rate, Denies pedal edema, Denies edema, Denies leg edema, Denies lightheadedness, Denies palpitations, Denies dyspnea, Denies dyspnea on exertion and Denies orthopnea Resp Denies cough, Denies dyspnea and Denies dyspnea on exertion GI Denies hematochezia and Denies change in stool character Musc Denies abnormal gait, Denies muscle cramps, Denies muscle weakness, Denies numbness, Denies radiating pain into limb and Denies tingling Neuro Denies abnormal gait, Denies dizziness, Denies syncope, Denies numbness, Denies tingling and Denies weakness Endo Denies palpitations Physical Exam Vital Signs: Last Vital Signs Pulse 75 09/06/22 09:03 BP 120/82 09/06/22 09:03 BMI result Body Mass Index 26.5 GENERAL APPEARANCE: in no acute distress, pleasant. NECK: no carotid bruit, no jugular venous distention. SKIN: no suspicious lesions, warm and dry. HEART: Systolic murmur aortic area with preserved 2nd heart sound, regular rate and rhythm. LUNGS: clear to auscultation bilaterally. ABDOMEN: soft, nontender. EXTREMITIES: no edema. PERIPHERAL PULSES: equal. NEUROLOGIC: No gross deficits, AAO X 3 Assessment & Plan Assessment & Plan (1) Hollenhorst plaque, left eye: Code(s): H34.212 - Partial retinal artery occlusion, left eye (2) Hyperlipidemia: Code(s): E78.5 - Hyperlipidemia, unspecified Qualifiers: Hyperlipidemia type: pure hypercholesterolemia Qualified Code(s): E78.00 - Pure hypercholesterolemia, unspecified (3) HTN (hypertension): Code(s): I10 - Essential (primary) hypertension Qualifiers: Hypertension type: essential hypertension Qualified Code(s): I10 - Essential (primary) hypertension Plan Pleasant 81-year-old female who is here for follow-up. Blood pressure control is good. LDL cholesterol is 54 from 110 since she has been on atorvastatin 40 mg daily. Clinically stable at this point. No exertional symptoms. Follow-up with us in 6 months. Thank you for allowing me to participate in the care of your patient. Please feel free to contact me if you have any questions. Coding Level of Care Code Est Pt Level 4 (09094) Diagnoses Hollenhorst plaque, left eye H34.212 Hyperlipidemia E78.00 Hyperlipidemia type: pure hypercholesterolemia HTN (hypertension) I10 Hypertension type: essential hypertension
[2022-09-06 09:03] VITALS: BP 120/82; PULSE 75; BMI 26.5
== END 2022-09-06 09:14 | disposition home or self-care (01) ==
PROVIDERS: Visit Provider Internal Medicine Cardiovascular Disease
DX: H34.212 Partial retinal artery occlusion, left eye (principal); E78.00 Pure hypercholesterolemia, unspecified; I10 Essential (primary) hypertension
CPT/HCPCS: 99214

== ENCOUNTER → 2022-09-06 08:37 | Outpatient (BNVA) | payer MEDICARE, SELFPAY | PROVIDERS: Visit Provider Internal Medicine Cardiovascular Disease | DX: H34.212 Partial retinal artery occlusion, left eye (principal); I10 Essential (primary) hypertension; E78.5 Hyperlipidemia, unspecified | CPT/HCPCS: 99212 ==

== ENCOUNTER 2022-11-13 06:09 | Outpatient (REF) | payer MEDICARE, SELFPAY ==
[2022-11-13 11:58] LABS: Cholesterol 147 mg/dL (<200); HDL Cholesterol 65 mg/dL (>40); LDL Cholesterol Calculated 57 mg/dL (<100); Triglycerides 126 mg/dL (<150)
== END 2022-11-13 06:10 | disposition home or self-care (01) ==
LOC: HO.HMGCLDS 06:09
PROVIDERS: PCP Internal Medicine; Visit Provider Internal Medicine
DX: H34.212 Partial retinal artery occlusion, left eye (principal); E78.5 Hyperlipidemia, unspecified; I10 Essential (primary) hypertension
CPT/HCPCS: 36415; 80061

== ENCOUNTER 2022-11-14 12:12 | Outpatient (AMB) | payer MEDICARE, SELFPAY ==
--- NOTE | 2022-11-14 12:33 | MHC.PC.OV ---
Vital Signs 11/14/22 12:35 Height 5 ft 1 in Weight 141 lb BMI 26.6 BP 110/68 Blood Pressure Location Lt brachial Position Sitting Pulse 68 Pulse Source Pulse Oximeter Pulse Oximetry (%) 95 Oxygen Delivery Method Room Air Intake Visit Reasons: Annual PE Intake Note: Pt is here today for her PE Allergies No Known Allergies Allergy (Verified 12/10/22 23:16) Medication List - Last Reconciled 11/14/22 by Veronica Barker MD amlodipine 5 mg PO DAILY 90 days aspirin (Adult Low Dose Aspirin) 81 mg PO DAILY atorvastatin 40 mg PO BEDTIME 90 days levothyroxine 50 mcg PO QAM sumatriptan succinate 50 mg PO DAILY PRN trazodone 200 mg PO BEDTIME zoledronic nzag-tnphaasx-yennz 5 mg/100 mL 1 ea IV ONCE Tobacco use date assessed: 11/14/22 Fall risk assessment: No Falls in past year Last assessed Fall Risk: 11/14/22 Dental Screening Dental Screen Date: 11/14/22 Did you have a dental visit in the last 12 months?: Yes Did you have a dental problem in the last 6 months where you did not have access to dental care?: No Was dental information given to patient?: Patient has dentist HPI Annual PE HPI Details 82-year-old lady with hyperlipidemia, hypertension, history of migraine headaches, hypothyroidism osteoporosis, here today for her physical exam. She has been feeling well, compliant with taking her medications, has no complaints at present time. She had recent bone density scan done February 2022, ordered by Dr. Higuera, which showed osteoporosis in lumbar spine, osteopenia in left femoral neck and left femur, no history of fractures. She has an appointment already scheduled for 11/23/2022 to meet new endocrine provider , Dr. Copeland , regarding her Hypothyroid and osteoporosis. 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 Mother No problems noted. Brother Heart disease Brother Heart attack Social History Household Members: Spouse Housing: House Are you a primary home care chaplain to a significant other at home: No Do you presently have visiting nurse or other home services: No Alcohol intake: current Alcohol intake frequency: holidays/special occasions only Patient Tobacco Use Status: Former Tobacco user Quit Date: 1978 Smoked: 10 +/- e-Cigarette/Vaping Use: Never Used service: No Current occupational status: retired Cognitive needs: No Hearing needs: No Vision needs: Yes Questionnaire PHQ-9 Over the last 2 weeks, how often have you been bothered by any of the following problems? 1. Little interest or pleasure in doing things: not at all 2. Feeling down, depressed, or hopeless: not at all 3. Trouble falling or staying asleep, or sleeping too much: not at all 4. Feeling tired or having little energy: not at all 5. Poor appetite or overeating: not at all 6. Feeling bad about yourself - or that you are a failure or have let yourself or your family down: not at all 7. Trouble concentrating on things, such as reading the newspaper or watching television: not at all 8. Moving or speaking so slowly that other people could have noticed. Or the opposite - being so fidgety or restless that you have been moving around a lot more than usual: not at all 9. Thoughts that you would be better off or of hurting yourself in some way: not at all Total score: 0 Depression Screening Interpretation: Negative 24246 - PHQ-9 Billing: Yes Source: Developed by Drs. Gwyn Nicholson, Daylin Sánchez, Ramsey Tilley and colleagues, with an educational avtar from [employer]. Thrive Questionnaire Date Thrive assessed: 11/14/22 I am a: Patient What is your living situation today?: I have a steady place to live Within the past 12 months, did the food you bought not last and you didn't have the money to get more?: Never true Within the past 12 months, did you worry whether your food would run out before you got money to buy more?: Never true Do you have trouble paying for medicines?: No Do you have trouble paying your heating and electricity bill?: No Do you have trouble taking care of your child, family member or friend?: No Do you have trouble with day-to-day activities such as bathing, preparing meals, shopping, managing finances, etc.?: No Are you currently unemployed and looking for a job?: No Are you interested in more education?: No AUDIT C Alcohol Use Questionnaire (AUDIT-C) 1. How often do you have a drink containing alcohol?: Monthly or less 2. How many drinks containing alcohol do you have on a typical day when you are drinking?: 1 or 2 3. How often do you have six or more drinks on one occasion?: Never Total Score: 1 ZAIRA-7 AMB Questionnaire ZAIRA-7 Date ZAIRA - 7 assessed: 11/14/22 Feeling nervous, anxious, or on edge: 0 = Not at all Not being able to stop or control worryin = Not at all Worrying too much about different things: 0 = Not at all Trouble relaxin = Not at all Being so restless that it is hard to sit still: 0 = Not at all Becoming easily annoyed or irritable: 0 = Not at all Feeling afraid as if something awful might happen: 0 = Not at all Total ZAIRA-7 score (0-4 normal; 5-9 mild; 10-14 moderate; 15-21 severe): 0 Source: Developed by Drs. Gwyn Nicholson, Daylin Sánchez, Ramsey Tilley and colleagues, with an educational avtar from [employer]. ZAIRA-7 Assessment Billing ZAIRA-7 Assessment Tool: ZAIRA-7 Assessment [id number] Review of Systems Const Denies fatigue, Denies fever(s), Denies frequent falls, Denies snoring and Denies weakness Eyes Denies change in vision ENT Denies dizziness and Denies hearing loss Card Denies chest pain, Denies chest pain with activity, Denies syncope, Denies edema, Denies claudication, Denies leg edema, Denies lightheadedness, Denies palpitations and Denies dyspnea Resp Denies cough, Denies dyspnea, Denies snoring and Denies wheezing GI Denies abdominal pain, Denies change in bowel habits, Denies change in stool character, Denies heartburn, Denies nausea and Denies vomiting Denies hematuria, Denies urinary frequency and Denies dysuria Musc Denies arthralgias, Denies muscle weakness, Denies numbness and Denies tingling Skin/Breast Denies breast skin changes, Denies breast pain, Denies breast mass and Denies rash Neuro Denies Abnormal speech present, Denies dizziness, Denies syncope, Denies frequent falls, Denies numbness, Denies tingling and Denies weakness Psych Reports no additional complaints Endo Denies fatigue and Denies palpitations Guy/Lymph Reports no additional complaints Aller/Immun Denies wheezing Physical exam (Primary Care) Vital Signs: Last Vital Signs Pulse 68 11/14/22 12:35 BP 110/68 11/14/22 12:35 Pulse Ox 95 11/14/22 12:35 Oxygen Delivery Method Room Air 11/14/22 12:35 BMI result Body Mass Index 26.6 Tobacco/Smoking Status: Tobacco use Status Tobacco use date assessed 11/14/22 11/14/22 12:37 Patient Tobacco Use Status Former Tobacco user 11/14/22 12:33 e-Cigarette/Vaping Use Never Used 11/14/22 12:33 PHQ-9: PHQ-9 Score PHQ-9: Total score 0 11/15/22 08:54 Depression Screening Interpretation: Negative Thrive Assessment: Date of Thrive Assessment Date Thrive assessed 11/14/22 11/14/22 12:37 Const General: comfortable, no acute distress, alert and Physically active Nutritional Appearance: average body habitus Orientation/consciousness: patient oriented x3 HENMT Ears: hearing grossly normal bilaterally General nose exam: Normal external nose present and No nasal discharge present Face and sinus: Yes face symmetric Mouth: Normal oral and palatal mucosa present, oropharynx normal and moist mucous membranes Eyes General: appearance normal, both eyes and all related structures Neck Neck: Yes full ROM, Yes no lymphadenopathy and Yes supple Thyroid: Thyroid normal Resp Effort & Inspection: normal respiratory effort and able to speak in complete sentences Auscultation: clear to auscultation bilaterally Cardio Other: S1 and S2 present regular rate and rhythm Bruits: no carotid bruits GI Other: Normal bowel sounds, soft, nontender, no mass palpated , no abdominal bruit Back/Spine/Pelvis Back: No back tenderness Skin General skin exam: no rashes or lesions noted Neuro General: patient oriented x3, gait normal, tone normal, moves all extremities, Normal light touch and pain sensation, no focal motor deficits and CN's II-XI intact bilaterally Speech: No Abnormal speech present Gait exam (Neuro): Normal gait present Extrem General: Yes full ROM, Yes no joint enlargement, Yes no pedal edema, Yes no calf tenderness and Yes normal gait Psych Appearance: grossly normal and well kempt Mental Status: mental status grossly normal Speech and movement: Normal speech and movement present Affect: normal affect Attitude: cooperative Thought process: Normal thought process present Thought content: Normal thought content present Assessment and Plan Assessment & Plan (1) Annual visit for general adult medical examination with abnormal findings: Code(s): Z00.01 - Encounter for general adult medical examination with abnormal findings Plan: Reviewed and discussed recent fasting lab results with patient. Continue with regular dental visit every 6 months and regular eye exams, at least every 2 years. Take adequate calcium in diet and vitamin-D 3 at 2000 IU per cap once a day, in addition to weight-bearing exercises to help maintain good muscle tone and weight control. Reminded to get her COVID booster once it is out and get yearly flu shots (2) Hyperlipidemia: Code(s): E78.5 - Hyperlipidemia, unspecified Qualifiers: Hyperlipidemia type: pure hypercholesterolemia Qualified Code(s): E78.00 - Pure hypercholesterolemia, unspecified Plan: Reviewed recent fasting lipid profile with patient with levels within normal limits . Continue with atorvastatin 40 mg at bedtime , in addition to adherence to low-cholesterol diet and regular exercise, at least 30 minutes 3 to 4 times a week. Advised patient to make healthy food choices, eat more fruits, vegetables, whole grains, wild caught fish and low-fat dairy. Limit amount of meat and fried or fatty food products, as well as processed foods and fast foods. (3) HTN (hypertension): Code(s): I10 - Essential (primary) hypertension Qualifiers: Hypertension type: essential hypertension Qualified Code(s): I10 - Essential (primary) hypertension Plan: Blood pressure at goal of less than 130/80. Continue with current medication. Reinforced importance of following a low sodium diet, getting regular exercise, and lowering stress levels. (4) Migraine: Code(s): G43.909 - Migraine, unspecified, not intractable, without status migrainosus Plan: Controlled, takes sumatriptan as needed (5) Hypothyroidism: Code(s): E03.9 - Hypothyroidism, unspecified Qualifiers: Hypothyroidism type: unspecified Qualified Code(s): E03.9 - Hypothyroidism, unspecified Plan: Continue with levothyroxine 50 mcg daily in a.m. (6) Osteoporosis: Code(s): M81.0 - Age-related osteoporosis without current pathological fracture Qualifiers: Osteoporosis type: unspecified Presence of current pathological fracture: unspecified Qualified Code(s): M81.0 - Age-related osteoporosis without current pathological fracture Plan: Stressed importance of doing regular weight-bearing exercises, take adequate calcium from dietary sources and take at least 2000 units of vitamin-D 3 daily. Patient declined further treatment Orders: Orders Aspartate Amino Transferase 11/16/22 E78.5 - Hyperlipidemia, unspecified, I10 - Essential (primary) hypertension Lipid Panel 04/27/23 E78.5 - Hyperlipidemia, unspecified, I10 - Essential (primary) hypertension Alanine Aminotransferase 04/27/23 E78.5 - Hyperlipidemia, unspecified, I10 - Essential (primary) hypertension Basic Metabolic Panel Fasting 04/27/23 E78.5 - Hyperlipidemia, unspecified, I10 - Essential (primary) hypertension Coding Level of Care Code Est Pt Prev Care >65y(14042) Diagnoses Annual visit for general adult medical examination with abnormal findings Z00.01 Pure hypercholesterolemia E78.00 Hyperlipidemia type: pure hypercholesterolemia Essential hypertension I10 Hypertension type: essential hypertension Migraine G43.909 Hypothyroidism, unspecified type E03.9 Hypothyroidism type: unspecified Osteoporosis, unspecified osteoporosis type, unspecified pathological fracture presence M81.0 Osteoporosis type: unspecified Presence of current pathological fracture: unspecified Additional Codes ZAIRA-7 Assessment Billing - ZAIRA-7 Assessment Tool: ZAIRA-7 Assessment [id number] ([id number])
[2022-11-14 12:35] VITALS: BP 110/68; PULSE 68; O2SAT 95; BMI 26.6
== END 2022-11-14 13:31 | disposition home or self-care (01) ==
PROVIDERS: Visit Provider Internal Medicine
DX: Z00.00 Encounter for general adult medical examination without abnormal findings (principal); E78.00 Pure hypercholesterolemia, unspecified; I10 Essential (primary) hypertension; G43.909 Migraine, unspecified, not intractable, without status migrainosus; E03.9 Hypothyroidism, unspecified; M81.0 Age-related osteoporosis without current pathological fracture
CPT/HCPCS: 99397

== ENCOUNTER 2022-11-16 15:01 | Outpatient (REF) | payer MEDICARE, SELFPAY ==
[2022-11-16 16:42] LABS: Alanine Aminotransferase 26 U/L (0-31); Albumin Level 4.3 g/dL (3.5-5.0); Alkaline Phosphatase 59 U/L (39-117); Anion Gap 14 (12-20); Aspartate Amino Transferase 22 U/L (5-31); Bilirubin Total 0.3 mg/dL (0.0-1.0); Blood Urea Nitrogen 22 mg/dL (9-16); Calcium 9.5 mg/dL (8.4-10.2); Carbon Dioxide 22 mmol/L (22-29); Chloride 108 mmol/L (96-108); Estimated Glomerular Filt Rate > 60; Glucose Random 90 mg/dL (60-115); Phosphorus 3.7 mg/dL (2.7-4.5); Potassium 3.8 mmol/L (3.3-5.1); Sodium 140 mmol/L (135-145); Total Protein 6.7 g/dL (6.5-8.0)
[2022-11-16 17:01] LABS: Free T4 (Free Thyroxine) 0.99 ng/dL (0.71-1.85); Vitamin D 25-OH Total 71.9 ng/mL (>30)
[2022-11-20 14:38] LABS: Calcium (PTHI) 9.8 mg/dL (8.6-10.4); PTHI 12 pg/mL (16-77)
== END 2022-11-16 15:02 | disposition home or self-care (01) ==
LOC: HO.HMGCLDS 15:01
PROVIDERS: PCP Internal Medicine; Visit Provider Internal Medicine
DX: M81.0 Age-related osteoporosis without current pathological fracture (principal); E03.9 Hypothyroidism, unspecified; E55.9 Vitamin D deficiency, unspecified; E78.5 Hyperlipidemia, unspecified; I10 Essential (primary) hypertension
CPT/HCPCS: 36415; 80053; 82306; 83970; 84100; 84439; 84443

== ENCOUNTER 2022-11-23 07:54 | Outpatient (AMB) | payer MEDICARE, SELFPAY ==
[2022-11-23 08:02] VITALS: BP 138/64; PULSE 82; BMI 27.1
--- NOTE | 2022-11-23 08:02 | A.OFFVIS_ITS ---
Intake Vital Signs 11/23/22 08:02 Height 5 ft 1 in Weight 143 lb 8.335 oz BMI 27.1 BP 138/64 Blood Pressure Location Lt brachial Position Sitting Pulse 82 Pulse Source Pulse Oximeter Intake Visit Reasons: F/U Osteoporosis, unable to reach Intake Note: New patient to Dr. Copeland present today for Osteoporosis and Hypothyroidism. Previously followed by Dr. Higuera. Health And Safety Manager Required: No Accompanied by: Self / Same As Patient Allergies No Known Allergies Allergy (Verified 11/23/22 08:06) Medication List - Last Reconciled 11/23/22 by Gwyn Copeland MD amlodipine 5 mg PO DAILY 90 days aspirin (Adult Low Dose Aspirin) 81 mg PO DAILY atorvastatin 40 mg PO BEDTIME 90 days levothyroxine 50 mcg PO QAM sumatriptan succinate 50 mg PO DAILY PRN trazodone 200 mg PO BEDTIME zoledronic rnoa-whoyciki-bnwht 5 mg/100 mL 1 ea IV ONCE HPI HPI Comments History of Present Illness Details 82 YO Female with PMHx Osteoporosis, HTN, HLD, Hypothyroidism who is seen in F/U for Osteoporosis. The patient last saw Dr. Higuera 03/22/2022 First diagnosed in January of 2018 when she had her first screening DXA. This revealed Osteoporosis of both the spine in the hip and she was referred to Endocrinology for this. She was last seen in early Mar 2018 at which time we sent her for full lab evaluation. She was provided with information regarding bisphosphonates and denosumab. Denosumab was ordered, but cost was prohibitive for her. She then agreed to try Reclast. She had three Reclast infusions November 2018, 01/30/2020, and 03/29/2021. She tolerated these well. Has 2 servings of dietary calcium per day in the form of milk, yogurt or cheese. Does take a Calcium supplement 500 mg PO daily. Takes Vitamin D 1000 IU daily. Denies ever using PPI, anticoagulant, antiepileptic. Does have cortisone injection q3 months into bursa. Does weight bearing exercise 4-5 days per week in the form of walking 3-4 miles at a time. Fracture history: Had fragility fracture of the radius in 2009. Height loss: Denies height loss. 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 Menarche at age 7, had EDDI/BSOO due to Endometriosis at the age of 25. Did use HRT. History of Kidney stones: Denies personal or family history of kidney stones. No family history of Osteoporosis or hip fracture. UTD on dental cleanings and sees dentist every 6 months. No planned upcoming dental work or extractions. DXA dated: 03/07/2022 FINDINGS: AP SPINE L1-L2 (excluding L3 and L4): The data of L1-L4 has been changed to exclude the L3 and L4 vertebral bodies, because degenerative changes at these levels may cause overestimation of lumbar spine density. Current: BMD 0.842 g/cm2, Z-score -0.6, T-score -2.7, osteoporosis, 2.7% increase from previous, 6.4% increa se from baseline (<5% change is not significant). Prior: BMD 0.820 g/cm2. Baseline: BMD 0.791 g/cm2. LEFT FEMUR, NECK: Current: BMD 0.745 g/cm2, Z-score 0.3, T-score -2.1, osteopenia. Prior: BMD 0.735 g/cm2. Baseline: BMD 0.715 g/cm2. LEFT FEMUR, TOTAL: Current: BMD 0.817 g/cm2, Z-score 0.8, T-score -1.5, osteopenia, 0.4% increase from previous, 3.8% increase from baseline (<5% change is not significant). Prior: BMD 0.814 g/cm2. Baseline: BMD 0.787 g/cm2. 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 Mother No problems noted. Brother Heart disease Brother Heart attack Social History Household Members: Spouse Housing: House Are you a primary careers adviser to a significant other at home: No Do you presently have visiting nurse or other home services: No Alcohol intake: current Alcohol intake frequency: holidays/special occasions only Patient Tobacco Use Status: Former Tobacco user Quit Date: 1978 Smoked: 10 +/- e-Cigarette/Vaping Use: Never Used service: No Current occupational status: retired Cognitive needs: No Hearing needs: No Vision needs: Yes Physical Exam Vital Signs: Last Vital Signs Pulse 82 11/23/22 08:02 BP 138/64 11/23/22 08:02 BMI result Body Mass Index 27.1 Assessment & Plan Assessment & Plan (1) Osteoporosis: Code(s): M81.0 - Age-related osteoporosis without current pathological fracture Qualifiers: Osteoporosis type: unspecified Presence of current pathological fracture: unspecified Qualified Code(s): M81.0 - Age-related osteoporosis without current pathological fracture Plan: This is a 82-year-old white female with a history of osteoporosis with secondary workup negative received 3 doses of Reclast. She is currently on calcium and vitamin-D supplementation. Plan is to complete the secondary workup by checking urine immunofixation. Will also check urinary NTX. Will follow urine NTX and if elevated will give another dose of Reclast but otherwise hold off and repeat DEXA bone density in 2 years. Lastly, her PTH was was low probably due to lab measurement error and I will repeat a PTH and if continues to be low will repeat at BRL Orders: Orders Collagen Crosslinks NTX Today M81.0 - Age-related osteoporosis without current pathological fracture Immunofixation, Random Urine Today M81.0 - Age-related osteoporosis without current pathological fracture PTHI Today M81.0 - Age-related osteoporosis without current pathological fracture Coding Level of Care Code Est Pt Level 3 (20370) Diagnoses Osteoporosis, unspecified osteoporosis type, unspecified pathological fracture presence M81.0 Osteoporosis type: unspecified Presence of current pathological fracture: unspecified
== END 2022-11-23 08:46 | disposition home or self-care (01) ==
PROVIDERS: PCP Internal Medicine; Referring Provider Internal Medicine; Visit Provider Internal Medicine Endocrinology, Diabetes & Metabolism
DX: M81.0 Age-related osteoporosis without current pathological fracture (principal)
CPT/HCPCS: 99213

== ENCOUNTER → 2022-11-23 07:54 | Outpatient (BNVA) | payer MEDICARE, SELFPAY | PROVIDERS: Visit Provider Internal Medicine Endocrinology, Diabetes & Metabolism | DX: M81.0 Age-related osteoporosis without current pathological fracture (principal) | CPT/HCPCS: 99212 ==

== ENCOUNTER 2023-02-14 12:05 | Outpatient (AMB) | payer MEDICARE, SELFPAY ==
--- NOTE | 2023-02-14 12:45 | A.OFFVIS_ITS ---
Intake Vital Signs 02/14/23 12:48 Height 5 ft 1 in Weight 140 lb 3.424 oz BMI 26.5 BP 120/58 L Blood Pressure Location Lt brachial Position Sitting Pulse 71 Intake Visit Reasons: 6 mth f/up Intake Note: 6 month follow up Accompanied by: Self / Same As Patient Allergies No Known Allergies Allergy (Verified 02/14/23 12:49) Medication List - Last Reconciled 02/14/23 by Ruddy Cleveland MD amlodipine 5 mg PO DAILY aspirin (Adult Low Dose Aspirin) 81 mg PO DAILY atorvastatin 40 mg PO BEDTIME 90 days levothyroxine 50 mcg PO QAM sumatriptan succinate 50 mg PO DAILY PRN trazodone 200 mg PO BEDTIME HPI HPI Comments History of Present Illness Details 82-year-old female who is referred to us because she was noticed to have Hollenhorst plaque in left eye on her routine ophthalmologic examination. She subsequent to that had an echocardiogram which showed normal ejection fraction of 50-55%. She had mild calcification of the aortic valve. No significant valvular disease otherwise was noticed. She has background history of hypertension hyperlipidemia. She also had carotid study which showed minimal plaque in both carotids. She has been taking simvastatin 10 mg once a day. She has no chest pain or shortness of breath. Otherwise active in her daily life without any functional limitations. 09/06/22: For follow-up. She has been d oing fine. No chest discomfort or shortness of breath. No urological or visual complaints. She was started on atorvastatin 40 mg on last visit and her LDL cholesterol is 54. Total cholesterol 124, triglyceride 104 and HDL 50. Blood pressure control is good. She is taking baby aspirin. 02/14/2023: She returns for follow-up. She has been doing well. No chest pain or shortness of breath. Blood pressure control is good. 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 Mother No problems noted. Brother Heart disease Brother Heart attack Social History Household Members: Spouse Housing: House Are you a primary medicare contact specialist to a significant other at home: No Do you presently have visiting nurse or other home services: No Alcohol intake: current Alcohol intake frequency: holidays/special occasions only Comment: patient refuses high risk safety precautions Patient Tobacco Use Status: Former Tobacco user Quit Date: 1978 Smoked: 10 +/- e-Cigarette/Vaping Use: Never Used service: No Current occupational status: retired Cognitive needs: No Hearing needs: No Vision needs: Yes Review of Systems Const Denies weakness ENT Denies dizziness Card Denies chest pain, Denies chest pain with activity, Denies syncope, Denies rapid heart rate, Denies pedal edema, Denies edema, Denies leg edema, Denies lightheadedness, Denies palpitations, Denies dyspnea, Denies dyspnea on exertion and Denies orthopnea Resp Denies cough, Denies dyspnea and Denies dyspnea on exertion GI Denies hematochezia and Denies change in stool character Musc Denies abnormal gait, Denies muscle cramps, Denies muscle weakness, Denies numbness, Denies radiating pain into limb and Denies tingling Neuro Denies abnormal gait, Denies dizziness, Denies syncope, Denies numbness, Denies tingling and Denies weakness Endo Denies palpitations Physical Exam Vital Signs: Last Vital Signs Pulse 71 02/14/23 12:48 BP 120/58 L 02/14/23 12:48 BMI result Body Mass Index 26.5 GENERAL APPEARANCE: in no acute distress, pleasant. NECK: no carotid bruit, no jugular venous distention. SKIN: no suspicious lesions, warm and dry. HEART: Systolic murmur aortic area with preserved 2nd heart sound, regular rate and rhythm. LUNGS: clear to auscultation bilaterally. ABDOMEN: soft, nontender. EXTREMITIES: no edema. PERIPHERAL PULSES: equal. NEUROLOGIC: No gross deficits, AAO X 3 Assessment & Plan Assessment & Plan (1) HTN (hypertension): Code(s): I10 - Essential (primary) hypertension Qualifiers: Hypertension type: essential hypertension Qualified Code(s): I10 - Es sential (primary) hypertension (2) Hyperlipidemia: Code(s): E78.5 - Hyperlipidemia, unspecified Qualifiers: Hyperlipidemia type: pure hypercholesterolemia Qualified Code(s): E78.00 - Pure hypercholesterolemia, unspecified (3) Hollenhorst plaque, left eye: Code(s): H34.212 - Partial retinal artery occlusion, left eye Plan Pleasant 81-year-old female who is here for follow-up. Blood pressure control is good. LDL cholesterol has improved after atorvastatin. Clinically stable at this point. No exertional symptoms. Follow-up with us in 1 year. Thank you for allowing me to participate in the care of your patient. Please feel free to contact me if you have any questions. Coding Level of Care Code Est Pt Level 3 (62147) Diagnoses Essential hypertension I10 Hypertension type: essential hypertension Pure hypercholesterolemia E78.00 Hyperlipidemia type: pure hypercholesterolemia Hollenhorst plaque, left eye H34.212
[2023-02-14 12:48] VITALS: BP 120/58; PULSE 71; BMI 26.5
== END 2023-02-14 13:28 | disposition home or self-care (01) ==
PROVIDERS: PCP Internal Medicine; Visit Provider Internal Medicine Cardiovascular Disease
DX: I10 Essential (primary) hypertension (principal); E78.00 Pure hypercholesterolemia, unspecified; H34.212 Partial retinal artery occlusion, left eye
CPT/HCPCS: 99213

== ENCOUNTER → 2023-02-14 12:05 | Outpatient (BNVA) | payer MEDICARE, SELFPAY | PROVIDERS: PCP Internal Medicine; Visit Provider Internal Medicine Cardiovascular Disease | DX: H34.212 Partial retinal artery occlusion, left eye (principal); I10 Essential (primary) hypertension; E78.00 Pure hypercholesterolemia, unspecified | CPT/HCPCS: 99212 ==

== ENCOUNTER 2023-04-13 10:37 | Outpatient (AMB) | payer MEDICARE, SELFPAY ==
--- NOTE | 2023-04-13 11:16 | MHC.PC.OV ---
Vital Signs 04/13/23 11:31 Height 5 ft 1 in Weight 141 lb BMI 26.6 BP 120/70 Blood Pressure Location Rt brachial Position Sitting Pulse 74 Pulse Source Pulse Oximeter Pulse Oximetry (%) 98 Oxygen Delivery Method Room Air Intake Visit Reasons: Urinary tract infection Intake Note: Pt is here today c/o ?UTI urgency upon urination x1week Allergies No Known Allergies Allergy (Verified 04/13/23 13:19) Medication List - Last Reconciled 04/13/23 by Veronica Barker MD amlodipine 5 mg PO DAILY aspirin (Adult Low Dose Aspirin) 81 mg PO DAILY atorvastatin 40 mg PO BEDTIME 90 days levothyroxine 50 mcg PO QAM nitrofurantoin monohyd/m-cryst 100 mg 100 mg PO Q12H 10 days sumatriptan succinate 50 mg PO DAILY PRN trazodone 200 mg PO BEDTIME Tobacco use date assessed: 04/13/23 Fall risk assessment: No Falls in past year Last assessed Fall Risk: 04/13/23 Dental Screening Dental Screen Date: 04/13/23 Did you have a dental visit in the last 12 months?: Yes Did you have a dental problem in the last 6 months where you did not have access to dental care?: No Was dental information given to patient?: Patient has dentist HPI Urinary tract infection HPI Details 82-year-old lady here today complaining of 3 day history of urgency and frequency, not accompanied by any back pain or suprapubic pain. 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 Mother No problems noted. Brother Heart disease Brother Heart attack Social History Household Members: Spouse Housing: House Are you a primary urgent care physician to a significant other at home: No Do you presently have visiting nurse or other home services: No Alcohol intake: current Alcohol intake frequency: holidays/special occasions only Comment: patient refuses high risk safety precautions Patient Tobacco Use Status: Former Tobacco user Quit Date: 1978 Smoked: 10 +/- e-Cigarette/Vaping Use: Never Used service: No Current occupational status: retired Cognitive needs: No Hearing needs: No Vision needs: Yes Questionnaire PHQ-9 Over the last 2 weeks, how often have you been bothered by any of the following problems? 1. Little interest or pleasure in doing things: not at all 2. Feeling down, depressed, or hopeless: not at all 3. Trouble falling or staying asleep, or sleeping too much: not at all 4. Feeling tired or having little energy: not at all 5. Poor appetite or overeating: not at all 6. Feeling bad about yourself - or that you are a failure or have let yourself or your family down: not at all 7. Trouble concentrating on things, such as reading the newspaper or watching television: not at all 8. Moving or speaking so slowly that other people could have noticed. Or the opposite - being so fidgety or restless that you have been moving around a lot more than usual: not at all 9. Thoughts that you would be better off or of hurting yourself in some way: not at all Total score: 0 Depression Screening Interpretation: Negative Depression Screening Done: Yes 13560 - PHQ-9 Billing: Yes Source: Developed by Drs. Gwyn Nicholson, Daylin Sánchez, Ramsey Tilley and colleagues, with an educational avtar from [employer]. Thrive Questionnaire Date Thrive assessed: 04/13/23 I am a: Patient What is your living situation today?: I have a steady place to live Within the past 12 months, did the food you bought not last and you didn't have the money to get more?: Never true Within the past 12 months, did you worry whether your food would run out before you got money to buy more?: Never true Do you have trouble paying for medicines?: No Do you have trouble getting transportation to medical appointments?: No Do you have trouble paying your heating and electricity bill?: No Do you have trouble taking care of your child, family member or friend?: No Do you have trouble with day-to-day activities such as bathing, preparing meals, shopping, managing finances, etc.?: No Are you currently unemployed and looking for a job?: No Are you interested in more education?: No THRIVE Score: 0 AUDIT C Alcohol Use Questionnaire (AUDIT-C) 1. How often do you have a drink containing alcohol?: Never Total Score: 0 ZAIRA-7 AMB Questionnaire ZAIRA-7 Date ZAIRA - 7 assessed: 04/13/23 Feeling nervous, anxious, or on edge: 0 = Not at all Not being able to stop or control worryin = Not at all Worrying too much about different things: 0 = Not at all Trouble relaxin = Not at all Being so restless that it is hard to sit still: 0 = Not at all Becoming easily annoyed or irritable: 0 = Not at all Feeling afraid as if something awful might happen: 0 = Not at all Total ZAIRA-7 score (0-4 normal; 5-9 mild; 10-14 moderate; 15-21 severe): 0 Source: Developed by Drs. Gwyn Nicholson, Daylin Sánchez, Ramsey Tilley and colleagues, with an educational avtar from [employer]. ZAIRA-7 Assessment Billing ZAIRA-7 Assessment Tool: ZAIRA-7 Assessment 07235 Review of Systems Const All systems reviewed & are unremarkable except as noted in HPI and below Physical exam (Primary Care) Vital Signs: Last Vital Signs Pulse 74 04/13/23 11:31 BP 120/70 04/13/23 11:31 Pulse Ox 98 04/13/23 11:31 Oxygen Delivery Method Room Air 04/13/23 11:31 BMI result Body Mass Index 26.6 Tobacco/Smoking Status: Tobacco use Status Tobacco use date assessed 04/13/23 04/13/23 11:41 Patient Tobacco Use Status Former Tobacco user 04/13/23 11:16 e-Cigarette/Vaping Use Never Used 04/13/23 11:16 Depression Screening Interpretation: Negative Thrive Assessment: Date of Thrive Assessment Date Thrive assessed 11/14/22 04/13/23 11:16 Const Other: Alert oriented x3, no acute distress noted, ambulatory normal gait GI Inspection: Yes normal to inspection Palpation (GI): Soft to palpation, nontender, no guarding and no masses General: Yes no CVA tenderness Back/Spine/Pelvis Back: no CVA tenderness Results AMB Urinalysis, Automated UA Leukoctes 125 Leyda/uL Last Edit by Regina Gaming CMA on 04/13/23 11:18 UA Nitrite Negative Last Edit by Regina Gaming CMA on 04/13/23 11:18 UA Urobilinogen 0.2 mg/dL Last Edit by Regina Gaming CMA on 04/13/23 11:18 UA Protein 0 mg/dL Last Edit by Regina Gaming CMA on 04/13/23 11:18 UA pH 6.0 Last Edit by Regina Gaming CMA on 04/13/23 11:18 UA Blood 10 Cristóbal/uL Last Edit by Regina Gaming CMA on 04/13/23 11:18 UA Specific [place] 1.010 Last Edit by Regina Gaming CMA on 04/13/23 11:18 UA Ketone Negative Last Edit by Regina Gaming CMA on 04/13/23 11:18 UA Bilirubin 0 mg/dL Last Edit by Regina Gaming CMA on 04/13/23 11:18 UA Glucose 0 mg/dL Last Edit by Regina Gaming CMA on 04/13/23 11:18 Results Reviewed Results Reviewed: Laboratory Last Values Urine pH (Auto) 6.0 04/13/23 11:07 Specific [place] (Auto) 1.010 04/13/23 11:07 Urine Protein (Auto) 0 mg/dL 04/13/23 11:07 Glucose (UA)(Auto) 0 mg/dL 04/13/23 11:07 Urine Ketones (Auto) Negative 04/13/23 11:07 Urine Blood (Auto) 10 Cristóbal/uL 04/13/23 11:07 Urine Nitrite (Auto) Negative 04/13/23 11:07 Urine Bilirubin (Auto) 0 mg/dL 04/13/23 11:07 Urine Urobilinogen (Auto) 0.2 mg/dL 04/13/23 11:07 Leukocyte Esterase (Auto) 125 Leyda/uL 04/13/23 11:07 Assessment and Plan Assessment & Plan (1) Acute cystitis: Code(s): N30.00 - Acute cystitis without hematuria Qualifiers: Hematuria presence: with hematuria Qualified Code(s): N30.01 - Acute cystitis with hematuria Plan: Prescription sent for nitrofurantoin 100 mg per capsule to take once every 12 hours , advised to just take it for 3 days and if symptoms resolve, not to continue taking the medication otherwise to finish the whole 10 day course. Advised to stay well-hydrated, drink water. Return to clinic if no improvement of symptoms Urine sent for culture and sensitivity (2) Urinary urgency: Code(s): R39.15 - Urgency of urination Orders: Orders UA CC w/rflx Micro + Cult Today N30.00 - Acute cystitis without hematuria, R39.15 - Urgency of urination AMB Urinalysis Automated Today Z13.9 - Encounter for screening, unspecified Medications: New nitrofurantoin monohyd/m-cryst 100 mg must administer with a meal/food 100 mg PO Q12H 20 caps 0RF 10 days Coding Level of Care Code Est Pt Level 3 (47413) Diagnoses Acute cystitis with hematuria N30.01 Hematuria presence: with hematuria Urinary urgency R39.15 Additional Codes ZAIRA-7 Assessment Billing - ZAIRA-7 Assessment Tool: ZAIRA-7 Assessment 00881 ([id number])
[2023-04-13 11:31] VITALS: BP 120/70; PULSE 74; O2SAT 98; BMI 26.6
== END 2023-04-13 12:48 | disposition home or self-care (01) ==
PROVIDERS: PCP Internal Medicine; Visit Provider Internal Medicine
DX: N30.01 Acute cystitis with hematuria (principal); R39.15 Urgency of urination
CPT/HCPCS: 81003; 99213

== ENCOUNTER 2023-04-13 13:10 | Outpatient (REF) | payer MEDICARE, SELFPAY ==
[2023-04-13 16:35] LABS: Appearance Urine Cloudy; Color Urine Yellow; Glucose Urine UA Negative (Negative); Leukocyte Esterase Urine Moderate (2+) (Negative); Nitrite Urine Negative (Negative); PH 6.5 (5.0-9.0); Specific Gravity - Urine 1.015 (1.005-1.025); UMIC TRIGGER UACC YES; Urine Blood Trace (Negative); Urine Ketones Negative (Negative); Urine Protein Negative (Neg-Trace)
[2023-04-13 16:55] LABS: Bacteria Urine Trace (None Seen); Hyaline Casts Urine 0-2 /LPF (0-2); UACC Culture Trigger YES; WBC Urine >50 /HPF (0-5)
== END 2023-04-13 13:11 | disposition home or self-care (01) ==
LOC: HO.LAB 13:10
PROVIDERS: Visit Provider Internal Medicine
DX: Z13.9 Encounter for screening, unspecified (principal)
CPT/HCPCS: 81001; 87086

== ENCOUNTER 2023-04-23 08:12 | Outpatient (REF) | payer MEDICARE, SELFPAY ==
[2023-04-23 12:09] LABS: Sodium 142 mmol/L (135-145)
[2023-04-23 12:10] LABS: Alanine Aminotransferase 14 U/L (0-31); Anion Gap 10 (12-20); Blood Urea Nitrogen 14 mg/dL (9-16); Calcium 9.3 mg/dL (8.4-10.2); Carbon Dioxide 26 mmol/L (22-29); Chloride 110 mmol/L (96-108); Cholesterol 134 mg/dL (<200); Estimated Glomerular Filt Rate > 60; Glucose Fasting 85 mg/dL (60-99); HDL Cholesterol 52 mg/dL (>40); LDL Cholesterol Calculated 58 mg/dL (<100); Potassium 3.5 mmol/L (3.3-5.1); Triglycerides 120 mg/dL (<150)
[2023-04-23 12:55] LABS: Parathyroid Hormone Intact 30.2 pg/mL (8.7-77.1)
== END 2023-04-23 08:13 | disposition home or self-care (01) ==
LOC: HO.HMGCLDS 08:12
PROVIDERS: PCP Internal Medicine; Visit Provider Internal Medicine Endocrinology, Diabetes & Metabolism
DX: I10 Essential (primary) hypertension (principal); E78.5 Hyperlipidemia, unspecified; M81.0 Age-related osteoporosis without current pathological fracture
CPT/HCPCS: 36415; 80048; 80061; 82523; 83970; 84460; 86335

== ENCOUNTER 2023-04-25 07:53 | Outpatient (AMB) | payer MEDICARE, SELFPAY ==
--- NOTE | 2023-04-25 07:54 | A.OFFVIS_ITS ---
Intake Vital Signs 04/25/23 07:55 Height 5 ft 1 in Weight 141 lb 1.533 oz BMI 26.7 BP 128/68 Blood Pressure Location Lt brachial Position Sitting Pulse 92 Pulse Source Pulse Oximeter Intake Visit Reasons: Osteoporosis-confirmed Intake Note: Patient present today for Osteoporosis follow up visit. Laboratory Secretary Required: No Accompanied by: Self / Same As Patient Allergies No Known Allergies Allergy (Verified 04/25/23 08:01) HPI HPI Comments History of Present Illness Details 82 YO Female with PMHx Osteoporosis, HTN, HLD, Hypothyroidism who is seen in F/U for Osteoporosis. First diagnosed in January of 2018 when she had her first screening DXA. This revealed Osteoporosis of both the spine in the hip and she was referred to Endocrinology for this. She was last seen in early Mar 2018 at which time we sent her for full lab evaluation. She was provided with information regarding bisphosphonates and denosumab. Denosumab was ordered, but cost was prohibitive for her. She then agreed to try Reclast. She had three Reclast infusions November 2018, 01/30/2020, and 03/29/2021. She tolerated these well. Has 2 servings of dietary calcium per day in the form of milk, yogurt or cheese. Does take a Calcium supplement 500 mg PO daily. Takes Vitamin D 1000 IU daily. Denies ever using PPI, anticoagulant, antiepileptic. Does have cortisone injection q3 months into bursa. Does weight bearing exercise 4-5 days per week in the form of walking 3-4 miles at a time. Fracture history: Had fragility fracture of the radius in 2009. Height loss: Denies height loss. 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 Menarche at age 7, had EDDI/BSOO due to Endometriosis at the age of 25. Did use HRT. History of Kidney stones: Denies personal or family history of kidney stones. No family history of Osteoporosis or hip fracture. UTD on dental cleanings and sees dentist every 6 months. No planned upcoming dental work or extractions. DXA dated: 03/07/2022 FINDINGS: AP SPINE L1-L2 (excluding L3 and L4): The data of L1-L4 has been changed to exclude the L3 and L4 vertebral bodies, because degenerative changes at these levels may cause overestimation of lumbar spine density. Current: BMD 0.842 g/cm2, Z-score -0.6, T-score -2.7, osteoporosis, 2.7% increase from previous, 6.4% increa se from baseline (<5% change is not significant). Prior: BMD 0.820 g/cm2. Baseline: BMD 0.791 g/cm2. LEFT FEMUR, NECK: Current: BMD 0.745 g/cm2, Z-score 0.3, T-score -2.1, osteopenia. Prior: BMD 0.735 g/cm2. Baseline: BMD 0.715 g/cm2. LEFT FEMUR, TOTAL: Current: BMD 0.817 g/cm2, Z-score 0.8, T-score -1.5, osteopenia, 0.4% increase from previous, 3.8% increase from baseline (<5% change is not significant). Prior: BMD 0.814 g/cm2. Baseline: BMD 0.787 g/cm2. 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 Mother No problems noted. Brother Heart disease Brother Heart attack Social History Household Members: Spouse Housing: House Are you a primary primary care nurse practitioner to a significant other at home: No Do you presently have visiting nurse or other home services: No Alcohol intake: current Alcohol intake frequency: holidays/special occasions only Comment: patient refuses high risk safety precautions Patient Tobacco Use Status: Former Tobacco user Quit Date: 1978 Smoked: 10 +/- e-Cigarette/Vaping Use: Never Used service: No Current occupational status: retired Cognitive needs: No Hearing needs: No Vision needs: Yes Assessment & Plan Assessment & Plan (1) Osteoporosis: Code(s): M81.0 - Age-related osteoporosis without current pathological fracture Qualifiers: Osteoporosis type: unspecified Presence of current pathological fracture: unspecified Qualified Code(s): M81.0 - Age-related osteoporosis without current pathological fracture Plan: This is a 82-year-old white female with a history of osteoporosis with secondary workup negative received 3 doses of Reclast. She is currently on calcium and vitamin-D supplementation. Secondary workup is negative. Repeat PTH was normal Plan is to check urinary NTX when it is available. Will follow urine NTX and if elevated will give another dose of Reclast but otherwise hold off and repeat DEXA bone density in 2 years. Coding Level of Care Code Est Pt Level 3 (12183) Diagnoses Osteoporosis, unspecified osteoporosis type, unspecified pathological fracture presence M81.0 Osteoporosis type: unspecified Presence of current pathological fracture: unspecified
[2023-04-25 07:55] VITALS: BP 128/68; PULSE 92; BMI 26.7
== END 2023-04-25 08:08 | disposition home or self-care (01) ==
PROVIDERS: PCP Internal Medicine; Visit Provider Internal Medicine Endocrinology, Diabetes & Metabolism
DX: M81.0 Age-related osteoporosis without current pathological fracture (principal)
CPT/HCPCS: 99213

== ENCOUNTER → 2023-04-25 07:53 | Outpatient (BNVA) | payer MEDICARE, SELFPAY | PROVIDERS: PCP Internal Medicine; Visit Provider Internal Medicine Endocrinology, Diabetes & Metabolism | DX: M81.0 Age-related osteoporosis without current pathological fracture (principal) | CPT/HCPCS: 99212 ==

== ENCOUNTER 2023-05-16 10:06 | Outpatient (AMB) | payer MEDICARE, SELFPAY ==
--- NOTE | 2023-05-16 10:51 | A.OFFPC_ITS ---
Vital Signs 05/16/23 11:05 Height 5 ft 1 in Weight 139 lb BMI 26.3 BP 120/70 Blood Pressure Location Rt brachial Position Sitting Pulse 75 Pulse Source Pulse Oximeter Pulse Oximetry (%) 97 Oxygen Delivery Method Room Air Intake Visit Reasons: 6 month follow up Intake Note: Pt is here today for her 6mo. f/u Allergies No Known Allergies Allergy (Verified 05/16/23 11:22) Medication List - Last Reconciled 05/16/23 by Veronica Barker MD amlodipine 5 mg PO DAILY aspirin (Adult Low Dose Aspirin) 81 mg PO DAILY atorvastatin 40 mg PO BEDTIME 90 days levothyroxine 50 mcg PO QAM sumatriptan succinate 50 mg PO DAILY PRN trazodone 200 mg PO BEDTIME Tobacco use date assessed: 05/16/23 Fall risk assessment: No Falls in past year Last assessed Fall Risk: 05/16/23 Dental Screening Dental Screen Date: 05/16/23 Did you have a dental visit in the last 12 months?: Yes Did you have a dental problem in the last 6 months where you did not have access to dental care?: No Was dental information given to patient?: Patient has dentist HPI 6 month follow up HPI Details 82-year-old lady here today for follow-u p on her hypertension hyperlipidemia. Has been compliant with taking her medications and stays active. Latest fasting labs showed it is her within normal limits. Blood pressure has been well controlled on present treatment. She is also been complaining of urinary urgency, and hesitancy present now for the last week. No accompanying dysuria, no abdominal or back pain, no fever or chills reported. 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 Mother No problems noted. Brother Heart disease Brother Heart attack Social History Household Members: Spouse Housing: House Are you a primary career guidance counselor to a significant other at home: No Do you presently have visiting nurse or other home services: No Alcohol intake: current Alcohol intake frequency: holidays/special occasions only Comment: patient refuses high risk safety precautions Patient Tobacco Use Status: Former Tobacco user Quit Date: 1978 Smoked: 10 +/- e-Cigarette/Vaping Use: Never Used service: No Current occupational status: retired Cognitive needs: No Hearing needs: No Vision needs: Yes Questionnaire Thrive Questionnaire Date Thrive assessed: 04/13/23 ZAIRA-7 AMB Questionnaire ZAIRA-7 Date ZAIRA - 7 assessed: 04/13/23 Source: Developed by Drs. Gwyn Nicholson, Daylin Sánchez, Ramsey Tilley and colleagues, with an educational avtar from [employer] Physical exam (Primary Care) Vital Signs: Last Vital Signs Pulse 75 05/16/23 11:05 BP 120/70 05/16/23 11:05 Pulse Ox 97 05/16/23 11:05 Oxygen Delivery Method Room Air 05/16/23 11:05 BMI result Body Mass Index 26.3 Tobacco/Smoking Status: Tobacco use Status Tobacco use date assessed 05/16/23 05/16/23 10:53 Patient Tobacco Use Status Former Tobacco user 05/16/23 10:53 e-Cigarette/Vaping Use Never Used 05/16/23 10:53 Thrive Assessment: Date of Thrive Assessment Date Thrive assessed 04/13/23 05/16/23 10:53 Results AMB Urinalysis, Automated UA Leukoctes 15 Leyda/uL Last Edit by Regina Gaming CMA on 05/16/23 11:43 UA Nitrite Negative Last Edit by Regina Gaming CMA on 05/16/23 11:43 UA Urobilinogen 0.2 mg/dL Last Edit by Regina Gaming CMA on 05/16/23 11:43 UA Protein 15 mg/dL Last Edit by Regina Gaming CMA on 05/16/23 11:43 UA pH 5.5 Last Edit by Regina Gaming CMA on 05/16/23 11:43 UA Blood 0 Cristóbal/uL Last Edit by Regina Gaming CMA on 05/16/23 11:43 UA Specific [place] 1.015 Last Edit by Regina Gaming CMA on 05/16/23 11:43 UA Ketone Positive Last Edit by Regina Gaming CMA on 05/16/23 11:43 UA Bilirubin 1 mg/dL Last Edit by Regina Gaming CMA on 05/16/23 11:43 UA Glucose 0 mg/dL Last Edit by Regina Gaming CMA on 05/16/23 11:43 Results Reviewed Results Reviewed: murray: Fani Faust Age/Sex: 82/F : 1940 Unit#: [id number] Attend Dr: Gwyn Copeland MD Re04/23/23 Status: DEP REF Location: [facility] Disch: SPEC : [id number] [place]: 04/23/23 STATUS: COMP REQ : [id number] RECD: 04/23/23-[address]: Veronica Barker MD COMP: 04/23/23-1209 ENTERED: 04/23/23-[address]: Gwyn Copeland MD ORDERED: Met Prof Fast, ALT, Lipid Panel Test Result Flag Reference Sodium 142 135-145 mmol/L Potassium 3.5 3.3-5.1 mmol/L CL 110 H 96-108 mmol/L CO2 26 22-29 mmol/L Gap 10 L 12-20 BUN 14 9-16 mg/dL Creat 0.71 0.5-1.4 mg/dL EGFR > 60 NOTE: For -[place] individuals, multiply the result by 1.210. Chronic Kidney Disease: Estimated GFR < 60 mL/min/1.73m2 Severe Kidney Disease: Estimated GFR < 15 mL/min/1.73m2 FBS 85 60-99 mg/dL CA 9.3 8.4-10.2 mg/dL ALT (GPT) 14 0-31 U/L Triglyceride 120 <150 mg/dL Desirable Triglyceride: less than 150 mg/dL Borderline High Triglyceride 150-199 mg/dL High Triglyceride: 200-499 mg/dL Very High Triglyceride: greater than or equal to 5OO mg/dL Cholesterol 134 <200 mg/dL Desirable Cholesterol: less than 200 mg/dL Borderline High Cholesterol: 200-239 mg/dL High Cholesterol: greater than 239 mg/dL LDL Calculated 58 <100 mg/dL Desirable LDL: less than 100 mg/dL Near Optimal/Above Optimal LDL: 110-129 mg/dL Borderline High LDL: 130-159 mg/dL High LDL: 160-189 mg/dL Very High LDL: greater than or equal to 190 mg/dL HDL 52 >40 mg/dL Desirable HDL: greater than 40 mg/dL Note: This HDL assay may give artificially low results in patients with liver disease. Assessment and Plan Assessment & Plan (1) HTN (hypertension): Code(s): I10 - Essential (primary) hypertension Qualifiers: Hypertension type: essential hypertension Qualified Code(s): I10 - Essential (primary) hypertension Plan: Blood pressure at goal of less than 130/80. Continue amlodipine 5 mg daily Reinforced importance of following a low sodium diet, getting regular exercise, and lowering stress levels. (2) Hyperlipidemia: Code(s): E78.5 - Hyperlipidemia, unspecified Qualifiers: Hyperlipidemia type: pure hypercholesterolemia Qualified Code(s): E78.00 - Pure hypercholesterolemia, unspecified Plan: Reviewed recent fasting lipid profile with patient with levels within normal limits, . Continue with atorvastatin 40 mg daily , in addition to adherence to low-cholesterol diet and regular exercise, at least 30 minutes 3 to 4 times a week. Advised patient to make healthy food choices, eat more fruits, vegetables, whole grains, wild caught fish and low-fat dairy. Limit amount of meat and fried or fatty food products, as well as processed foods and fast foods. Follow-up scheduled with repeat fasting lipid panel in 6 months. (3) Urinary urgency: Code(s): R39.15 - Urgency of urination Orders: Orders UA CC w/rflx Micro + Cult Today R39.15 - Urgency of urination Lipid Panel 11/04/23 E78.5 - Hyperlipidemia, unspecified, I10 - Essential (primary) hypertension Alanine Aminotransferase 11/04/23 E78.5 - Hyperlipidemia, unspecified, I10 - Essential (primary) hypertension Aspartate Amino Transferase 11/04/23 E78.5 - Hyperlipidemia, unspecified, I10 - Essential (primary) hypertension Basic Metabolic Panel Fasting 11/04/23 E78.5 - Hyperlipidemia, unspecified, I10 - Essential (primary) hypertension AMB Urinalysis Automated Today Z13.9 - Encounter for screening, unspecified Coding Level of Care Code Est Pt Level 4 (88159) Diagnoses Essential hypertension I10 Hypertension type: essential hypertension Pure hypercholesterolemia E78.00 Hyperlipidemia type: pure hypercholesterolemia Urinary urgency R39.15
[2023-05-16 11:05] VITALS: BP 120/70; PULSE 75; O2SAT 97; BMI 26.3
== END 2023-05-16 13:14 | disposition home or self-care (01) ==
PROVIDERS: PCP Internal Medicine; Visit Provider Internal Medicine
DX: R39.15 Urgency of urination (principal)
CPT/HCPCS: 81003

== ENCOUNTER 2023-05-16 11:29 | Outpatient (REF) | payer MEDICARE, SELFPAY ==
[2023-05-16 15:20] LABS: Appearance Urine Cloudy; Color Urine Dark Yellow; Glucose Urine UA Negative (Negative); Leukocyte Esterase Urine Trace (Negative); Nitrite Urine Negative (Negative); PH 5.5 (5.0-9.0); Specific Gravity - Urine 1.025 (1.005-1.025); UMIC TRIGGER UACC YES; Urine Blood Negative (Negative); Urine Ketones Trace mg/dL (Negative); Urine Protein Negative (Neg-Trace)
[2023-05-16 15:27] LABS: Bacteria Urine 3+ (None Seen); Calcium Oxalate Crystals Urine Present; RBC Urine 0-2 /HPF (0-2); WBC Urine 0-5 /HPF (0-5)
== END 2023-05-16 11:30 | disposition home or self-care (01) ==
LOC: HO.LAB 11:29
PROVIDERS: Visit Provider Internal Medicine
DX: R39.15 Urgency of urination (principal)
CPT/HCPCS: 81001

== ENCOUNTER 2023-05-27 21:00 | Emergency (ER) | payer MEDICARE, SELFPAY ==
--- NOTE | ~2023-05-27 | XR_ITS ---
EXAMINATION: XR CHEST CLINICAL INFORMATION: Fall with chest pain and question of fracture or pneumothorax COMPARISON: None available. TECHNIQUE: Frontal view of the chest was obtained. FINDINGS: No significant abnormality is noted involving the heart, lungs, mediastinum, bony thorax or soft tissues. Degenerative changes are present in the spine. No acute rib fractures and no pneumothorax. XR/XR chest 1V IMPRESSION: Unremarkable examination.
--- NOTE | ~2023-05-27 | CT_ITS ---
EXAMINATION: CT HEAD WITHOUT CONTRAST CT CERVICAL SPINE WITHOUT CONTRAST CLINICAL INFORMATION: Fall. Neck pain. Fracture. Syncope. Head strike. Loss of consciousness. COMPARISON: CT head and cervical spine from 01/31/2020. TECHNIQUE: Contiguous axial imaging was performed from the skull base to vertex without intravenous administration of contrast. Contiguous axial imaging was performed from the upper chest through the skull base without intravenous administration of contrast. Coronal and sagittal reformats were obtained at the acquisition workstation. This CT examination was performed using dose optimization techniques as appropriate, variously including the following: *Automated exposure control. *Adjustment of mA and/or kV according to patient size (this includes techniques or standardized protocols for targeted exams where dose is matched to indication/reason for exam; i.e. extremities or head). *Use of iterative reconstruction technique. DLP: 891 mGy-cm FINDINGS: Head: There is a small region of chronic encephalomalacia within the left parietal lobe with associated volume loss. No additional loss of albarran-white matter differentiation. No evidence of acute intracranial hemorrhage. Scattered and partially confluent hypoattenuation in the periventricular and deep white matter are consistent with moderate microangiopathy. The ventricles are normal in morphology and size. No evidence for obstructive hydrocephalus. No abnormal mass effect or midline shift. No extra-axial fluid collections. Moderate right-sided subgaleal hematoma, measuring up to 0.7 cm in depth. No associated acute osseous abnormalities.Mild mucosal thickening of the paranasal sinuses. The mastoid air cells and middle ear cavities are clear. Moderate arthropathy of the left worse than right temporomandibular joints with chondrocalcinosis. Bilateral lens extractions. Cervical Spine: The atlantooccipital and atlantoaxial articulations remain well aligned. 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 Reversal the normal cervical lordosis centered on C4-C5. Minimal degenerative anterolistheses of C3 on C4 and C4 on C5. Mild degenerative retrolisthesis of C5 on C6. No evidence of acute fracture or subluxation. The vertebral body heights are maintained. Advanced degenerative disc disease from C5-C7. Moderate degenerative disc disease at C4-C5 and C7-T1. Facet and uncovertebral joint arthropathy leads to osseous encroachment on the neural foramina from C3-C7. There is no prevertebral soft tissue swelling. Atrophy of the thyroid gland. The remaining cervical soft tissues are within normal limits. The lung apices demonstrate no abnormalities. CT/CT cervical spine wo IV con IMPRESSION: 1. No evidence of acute intracranial hemorrhage or edematous territorial infarction. Small region of chronic encephalomalacia within the left parietal lobe. Moderate underlying microangiopathy and generalized cerebral volume loss. 2. No evidence of acute fracture or traumatic subluxation of the cervical spine. Moderate multilevel degenerative spondyloarthropathy of the cervical spine. 3. Moderate right-sided scalp hematoma without associated osseous abnormalities.
[2023-05-27 21:07] VITALS: BP 130/67; BP 135/76; PULSE 74; PULSE 88; RESP 18; TEMP 36.8; O2SAT 92; O2SAT 95; BMI 29.0
--- NOTE | 2023-05-27 21:15 | ECG_ITS ---
Test Reason : SYNCOPE Blood Pressure : / mmHG Vent. Rate : 080 BPM Atrial Rate : 080 BPM P-R Int : 170 ms QRS Dur : 080 ms QT Int : 412 ms P-R-T Axes : 050 003 027 degrees QTc Int : 475 ms Sinus rhythm with occasional Premature ventricular complexes Otherwise normal ECG When compared with ECG of 04-JUN-2020 08:45, Premature ventricular complexes are now Present Referred By: Rafa Courtney Electronically Signed By:DONNIE CASTANON MD
--- NOTE | 2023-05-27 21:17 | ED_ITS ---
HPI - Syncope General Chief Complaint: Fall Stated Complaint: 2 FALLS TODAY, CONTUSION ON BACK OF HEAD,DIZZY Time Seen by Provider: 05/27/23 21:05 Source: patient Mode of arrival: EMS Limitations: no limitations History of Present Illness HPI narrative: 82-year-old female with a history of traumatic subdural hematoma, hypertension, hypothyroidism, hyperlipidemia, migraines, hypothyroidism who presents emergency department for evaluation of [id number] falls. The patient states that she went into her bathroom and urinated. She got up washed her hands and then walk to the bathroom and states that she suddenly passed out with no warning. She states that she lied on the floor for several minutes, got up and then had a 2nd episode where she passed out. She denied any prodrome of symptoms. She denied headache, chest pain, lightheadedness, shortness of breath. She states that she has had some urinary frequency and dysuria but saw her doctor recently was told that she did not have a urinary tract infection. She denied nausea, vomiting, diarrhea, dark stools or bloody stools. Patient was brought to the emergency department by EMS who confirmed that the patient had 2 falls today with loss of consciousness. The patient states that she lives at home with her 95-year-old who recently got out of rehab. She states that her daughter does help them out and is going to stay with her this evening. Related Data Home Medications Medication Instructions Recorded Confirmed trazodone 100 mg tablet 200 mg PO BEDTIME 01/29/20 02/14/23 Previous Rx's Medication Instructions Recorded aspirin 81 mg tablet,delayed 81 mg PO DAILY #90 tabs 02/13/22 release (Adult Low Dose Aspirin) atorvastatin 40 mg tablet 40 mg PO BEDTIME 90 days #90 tabs 08/01/22 sumatriptan succinate 50 mg tablet 50 mg PO DAILY PRN for migraine 12/18/22 #10 tabs amlodipine 5 mg tablet 5 mg PO DAILY #30 tabs 12/28/22 levothyroxine 50 mcg tablet 50 mcg PO QAM #90 caps 01/15/23 Allergies Allergy/AdvReac Type Severity Reaction Status Date / Time No Known Allergies Allergy Verified 05/16/23 11:22 Review of Systems 2 Review of Systems: Yes all other systems are reviewed and are negative PMFSH Past Medical History [facility] Narrative: Social history: She denies tobacco use. She states she does drink wine daily and did have a half a glass of wine to drink this evening. She denies drug use. She lives at home with her 95-year-old who recently got out of rehab and the patient's daughter does help take care of them. 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 Mother No problems noted. Brother Heart disease Brother Heart attack Social History Social History Household Members: Spouse Housing: House Are you a primary home health care respiratory therapist to a significant other at home: No Do you presently have visiting nurse or other home services: No Alcohol intake: current Alcohol intake frequency: holidays/special occasions only Alcohol type: wine Comment: patient refuses high risk safety precautions Patient Tobacco Use Status: Former Tobacco user Quit Date: 1978 Smoked: 10 +/- Smoked in Last 30 Days: No e-Cigarette/Vaping Use: Never Used Use of substances other than those prescribed or required for medical reasons: No Advance Directives: No Advance Directives Information Provided: No service: No Current occupational status: retired Cognitive needs: No Hearing needs: No Vision needs: Yes Physical Exam 2 Vital Signs: Vital Signs: Last Vital Signs Temp 98.3 F 05/27/23 21:07 Pulse 74 05/27/23 21:07 Resp 18 05/27/23 21:07 BP 130/67 05/27/23 21:07 Pulse Ox 92 05/27/23 21:07 O2 Del Method Room Air 05/27/23 21:07 BMI result Body Mass Index 29.0 Vital signs were normal Exam: General: Awake, alert in no distress Head: Normocephalic, atraumatic EENT: PERRL, Lids normal, sclera normal, conjunctiva normal, nose normal , ears normal, throat without erythema or exudates Neck: Supple, no adenopathy Lung: breath sounds symmetric, no wheezing, rales or rhonchi Chest: symmetric movement, nontender Heart: regular rate and rhythm, normal S1, S2 no murmurs or rubs Abdomen: soft, non-tender, nondistended, normal bowel sounds Back: no vertebral tenderness, no CVAT Extremities: no deformities, moves all extremities symmetrically Neuro: Awake, alert, oriented, normal speech, cranial nerves intact, moves all extremities symmetrically Psych: Pleasant, cooperative Medical Decision Making Medical Decision Making MDM Narrative: 82-year-old female with a history of traumatic subdural hematoma, hypertension, hypothyroidism, hyperlipidemia, migraines, hypothyroidism who presents emergency department for evaluation of osro-cy-xjiz falls. The patient went to the bathroom and Dmitriy rated then got up washed her hands and while walking back to emergency department she had a syncopal episode with no warning, she got up and had a 2nd syncopal episode and reports that she lost consciousness for both. She has noted urinary frequency and dysuria otherwise review of systems was negative. Patient was brought to emergency department by EMS. Vital signs were normal. Physical examination was unremarkable. Differential diagnosis: ?Includes but is not limited to myocardial infarction, myocardial ischemia, arrhythmia, anemia, electrolyte abnormalities, urinary tract infection, pneumonia, skull fracture, intracranial bleed, cervical fracture Following evaluation was ordered: CBC, CMP, PTT, troponin, urinalysis, CT scan of the head and cervical spine without IV contrast, 12 EKG, urine drug screen, ethanol level, COVID-19, influenza, RSV Course: 23:41 My independent interpretation patient's laboratory evaluation is as follows: CBC and CMP were normal. Urinalysis revealed trace blood. Microscopic revealed no bacteria suggest that she does not have urinary tract infection and the cause of her syncope. Urine tox screen was negative. Alcohol level was elevated 114 suggesting that she has alcohol intoxication. COVID-19, RSV and influenza were negative. High sensitivity troponin I was detectable but not elevated at 5.9. Patient's 12 EKG was unremarkable except for an occasional PVC. At this time I suspect that her fall may have been secondary to her alcohol intoxication I did discuss this with her. The patient was able to walk to the bathroom without any difficulty. The patient will be discharged home. I told her that she should decrease the amount of alcohol that she drinks at night to prevent further episodes of syncope. Admission/Observation Consideration of admission/observation: Escalation of care including admission/observation considered Lab Data MDM Lab Attestation statement: I reviewed the patient's lab results. 05/27/23 Unknown 05/27/23 Unknown Labs: Lab Results 05/27/23 05/27/23 Range/Units 22:37 Unknown WBC 7.9 (4.8-10.8) X10*3/uL RBC 4.40 (4.20-5.50) X10*6/uL Hgb 13.6 (12.0-16.0) g/dl Hct 40.4 (37.0-47.0) % MCV 91.8 (80.0-98.0) fL MCH 30.9 (27.0-33.0) pg MCHC 33.7 (31.0-35.0) g/dl RDW 13.9 (11.0-16.0) % Plt Count 177 (160-400) X10*3/uL MPV 9.4 (9.4-12.3) fL Immature Gran % (Auto) 0.3 (0.0-0.4) % Neut % (Auto) 74.8 H (45-73) % Lymph % (Auto) 19.8 L (20-40) % [place] % (Auto) 4.2 (2-11) % Eos % (Auto) 0.5 (0-4) % Baso % (Auto) 0.4 (0-2) % Lymph # (Auto) 1.6 (1.2-4.9) X10*3/uL [place] # (Auto) 0.3 (0.1-1.2) X10*3/uL Eos # (Auto) 0.0 (0.0-0.4) X10*3/uL Baso # (Auto) 0.0 (0.0-0.2) X10*3/uL Abs Immat Gran (auto) 0.02 (0.00-0.03) X10*3/uL Absolute Neuts (auto) 5.9 (2.0-8.3) x10*3/uL Absolute Nucleated RBC 0.000 (0.0-0.012) X10*3/uL Nucleated RBC % (auto) 0.0 (0.0-0.2) /100WBC APTT 28.3 (26.0-36.8) SEC Sodium 145 (135-145) mmol/L Potassium 3.9 (3.3-5.1) mmol/L Chloride 113 H (96-108) mmol/L Carbon Dioxide 22 (22-29) mmol/L Anion Gap 14 (12-20) BUN 16 (9-16) mg/dL Creatinine 0.66 (0.5-1.4) mg/dL Estim Creat Clear Calc 68.3 Estimated GFR > 60 Random Glucose 102 (60-115) mg/dL Calcium 9.1 (8.4-10.2) mg/dL Total Bilirubin 0.3 (0.0-1.0) mg/dL AST 26 (5-31) U/L ALT 35 H (0-31) U/L Alkaline Phosphatase 55 (39-117) U/L Total Creatine Kinase 364 H (26-140) U/L Troponin I High Sens 5.9 (<3.5-17.0) ng/L Total Protein 6.7 (6.5-8.0) g/dL Albumin 4.3 (3.5-5.0) g/dL Lipase 22 (8-78) U/L Urine Color Yellow Urine Appearance Clear Urine pH 6.5 (5.0-9.0) Ur Specific [place] <= 1.005 (1.005-1.025) Urine Protein Negative (Neg-Trace) mg/dL Urine Glucose (UA) Negative (Negative) mg/dL Urine Ketones Negative (Negative) mg/dL Urine Blood Trace H (Negative) Urine Nitrite Negative (Negative) Ur Leukocyte Esterase Negative (Negative) Urine RBC 0-2 (0-2) /HPF Urine WBC 0-5 (0-5) /HPF Ur Squamous Epith Cells 0-2 (0-2) /HPF Urine Bacteria None Seen (None Seen) Hyaline Casts 0-2 (0-2) /LPF Urine Opiates Screen Not Detected (Not Detect) Urine Fentanyl Screen Not Detected (Not Detect) Ur Barbiturates Screen Not Detected (Not Detect) Ur Phencyclidine Scrn Not Detected (Not Detect) Ur Amphetamines Screen Not Detected (Not Detect) U Benzodiazepines Scrn Not Detected (Not Detect) Urine Cocaine Screen Not Detected (Not Detect) U Marijuana (THC) Screen Not Detected (Not Detect) Ethyl Alcohol 114 mg/dL Influenza Type A (PCR) NEGATIVE (Negative) Influenza Type B (PCR) NEGATIVE (Negative) RSV RNA Qual (PCR) NEGATIVE (Negative) SARS-CoV-2 RNA (RT-PCR) NEGATIVE (Negative) Independent Interpretation I performed an independent interpretation of an: EKG Interpretation: My independent interpretation patient's 12 EKG done at 23:01 hours is as follows: Sinus rhythm rate of 80, normal VA interval, QRS duration and QTC interval, no ST segment elevation, no ST segment depression, no significant T- wave abnormalities, occasional PVC. Radiology Impression Discussion of test interpretation with radiology: I have reviewed the radiologist's reading. Radiologist Impression: CT head and cervical spine wo IV con IMPRESSION: 1. No evidence of acute intracranial hemorrhage or edematous territorial infarction. Small region of chronic encephalomalacia within the left parietal lobe. Moderate underlying microangiopathy and generalized cerebral volume loss. 2. No evidence of acute fracture or traumatic subluxation of the cervical spine. Moderate multilevel degenerative spondyloarthropathy of the cervical spine. 3. Moderate right-sided scalp hematoma without associated osseous abnormalities. Dictated By: Panchito Ferreira DO Discharge Plan Discharge Clinical Impression: Multiple falls Closed head injury Qualifiers: Encounter type: initial encounter Qualified Code(s): S09.90XA - Unspecified injury of head, initial encounter Hematoma of right parietal scalp Qualifiers: Encounter type: initial encounter Qualified Code(s): S00.03XA - Contusion of scalp, initial encounter Alcohol intoxication Qualifiers: Complication of substance-induced condition: uncomplicated Qualified Code(s): F 10.920 - Alcohol use, unspecified with intoxication, uncomplicated Patient Disposition: Home, Self-Care Instructions: Head Injury (ED), Alcohol Intoxication (ED) Additional Instructions: CT scan of your head did reveal a hematoma to the right scalp but no skull fracture or bleeding in the brain which is reassuring The CT scan of your neck revealed no broken bones in your neck. Your EKG was normal Your blood work was unremarkable except for an elevated alcohol level. I suspect that you may have been intoxicated and this may have caused due to fall. You should consider cutting down on the amount of alcohol that you drink at night to prevent further falls. Continue taking medications as prescribed by your providers Follow-up with your doctor in 2 days. Please return to the emergency department if your symptoms get worse or if you develop any symptoms that are concerning to you. Prescriptions: No Action atorvastatin 40 mg tablet 40 mg PO BEDTIME 90 Days Qty: 90 3RF sumatriptan succinate 50 mg tablet 50 mg PO DAILY PRN (Reason: for migraine) Qty: 10 5RF amlodipine 5 mg tablet 5 mg PO DAILY Qty: 30 0RF Rx Instructions: filling local while waiting for mail order delivery levothyroxine 50 mcg tablet 50 mcg PO QAM Qty: 90 1RF trazodone 100 mg tablet 200 mg PO BEDTIME aspirin [Adult Low Dose Aspirin] 81 mg tablet,delayed release (DR/EC) 81 mg PO DAILY Qty: 90 3RF
[2023-05-27 21:46] LABS: MANUAL DIFF FLAG NO
[2023-05-27 21:55] LABS: Appearance Urine Clear; Basophils Percent Auto 0.4 % (0-2); Color Urine Yellow; Eosinophils Percent Auto 0.5 % (0-4); Glucose Urine UA Negative (Negative); Hematocrit 40.4 % (37.0-47.0); Hemoglobin 13.6 g/dl (12.0-16.0); Imm Gran Abs Auto 0.02 X10*3/uL (0.00-0.03); Imm Gran Pct Auto 0.3 % (0.0-0.4); Leukocyte Esterase Urine Negative (Negative); Lymphocytes Absolute Auto 1.6 X10*3/uL (1.2-4.9); Lymphocytes Percent Auto 19.8 % (20-40); Mean Corpuscular HGB Conc 33.7 g/dl (31.0-35.0); Mean Corpuscular Hemoglobin 30.9 pg (27.0-33.0); Mean Corpuscular Volume 91.8 fL (80.0-98.0); Mean Platelet Volume 9.4 fL (9.4-12.3); Monocytes Absolute Auto 0.3 X10*3/uL (0.1-1.2); Monocytes Percent Auto 4.2 % (2-11); Neutrophils Absolute Auto 5.9 x10*3/uL (2.0-8.3); Neutrophils Percent Auto 74.8 % (45-73); Nitrite Urine Negative (Negative); PH 6.5 (5.0-9.0); Platelet Count 177 X10*3/uL (160-400); Red Cell Distribution Width 13.9 % (11.0-16.0); Specific Gravity - Urine <= 1.005 (1.005-1.025); UMIC TRIGGER UACC YES; Urine Blood Trace (Negative); Urine Ketones Negative (Negative); Urine Protein Negative (Neg-Trace); White Blood Count 7.9 X10*3/uL (4.8-10.8)
[2023-05-27 21:57] LABS: Amphetamine Screen Urine Not Detected (Not Detect); Barbiturates, Urine Not Detected (Not Detect); Benzodiazepines Screen Urine Not Detected (Not Detect); Cannabinoid Screen Urine Not Detected (Not Detect); Cocaine Screen Urine Not Detected (Not Detect); Fentanyl, urine Not Detected (Not Detect); Opiate Screen Urine Not Detected (Not Detect); Phencyclidine Screen Urine Not Detected (Not Detect)
[2023-05-27 22:02] LABS: Ethanol 114 mg/dL
[2023-05-27 22:04] LABS: Alanine Aminotransferase 35 U/L (0-31); Albumin Level 4.3 g/dL (3.5-5.0); Alkaline Phosphatase 55 U/L (39-117); Anion Gap 14 (12-20); Aspartate Amino Transferase 26 U/L (5-31); Bilirubin Total 0.3 mg/dL (0.0-1.0); Blood Urea Nitrogen 16 mg/dL (9-16); Calcium 9.1 mg/dL (8.4-10.2); Carbon Dioxide 22 mmol/L (22-29); Chloride 113 mmol/L (96-108); Creatinine Clr Calc Pharmacy 68.3; Estimated Glomerular Filt Rate > 60; Glucose Random 102 mg/dL (60-115); Lipase 22 U/L (8-78); Partial Thromboplastin Time 28.3 SEC (26.0-36.8); Potassium 3.9 mmol/L (3.3-5.1); Sodium 145 mmol/L (135-145); Total Protein 6.7 g/dL (6.5-8.0)
[2023-05-27 22:07] LABS: Bacteria Urine None Seen (None Seen); Hyaline Casts Urine 0-2 /LPF (0-2); RBC Urine 0-2 /HPF (0-2); Squamous Epithelial Cell Urine 0-2 /HPF (0-2); WBC Urine 0-5 /HPF (0-5)
[2023-05-27 22:13] LABS: Troponin-I High Sensitivity 5.9 ng/L (<3.5-17.0)
[2023-05-27 23:31] LABS: Influenza A PCR NEGATIVE (Negative); Influenza B PCR NEGATIVE (Negative); Resp Syncy Virus RNA Qual PCR NEGATIVE (Negative); SARS COV2 PCR INHOUSE NEGATIVE (Negative)
[2023-05-28 00:35] VITALS: BP 153/76; PULSE 83; RESP 16; TEMP 36.9; O2SAT 95
== END 2023-05-28 00:37 | disposition home or self-care (01) ==
PROVIDERS: Emergency Provider Emergency Medicine Emergency Medical Services; PCP Internal Medicine
DX: S00.03XA Contusion of scalp, initial encounter (principal); R29.6 Repeated falls; F10.129 Alcohol abuse with intoxication, unspecified; Y90.5 Blood alcohol level of 100-119 mg/100 ml; R35.0 Frequency of micturition; R30.0 Dysuria; I10 Essential (primary) hypertension; W18.30XA Fall on same level, unspecified, initial encounter; Y93.9 Activity, unspecified; Y92.002 Bathroom of unspecified non-institutional (private) residence as the place of occurrence of the external cause; Y99.9 Unspecified external cause status; Z03.818 Encounter for observation for suspected exposure to other biological agents ruled out
CPT/HCPCS: 0241U; 36415; 70450; 71045; 72125; 80053; 80307; 81001; 82550; 83690; 84484; 85025; 85730; 93005; 99284

== ENCOUNTER → 2023-05-27 21:15 | Outpatient (BNV) | payer MEDICARE, SELFPAY | PROVIDERS: Emergency Provider Emergency Medicine Emergency Medical Services; PCP Internal Medicine; Visit Provider Internal Medicine Cardiovascular Disease | DX: R55 Syncope and collapse (principal) | CPT/HCPCS: 93010 ==

== ENCOUNTER 2023-09-11 08:39 | Outpatient (AMB) | payer MEDICARE, SELFPAY ==
--- OUTSIDE RECORDS SUMMARY | 2023-09-11 08:42 | XMS_ITS | Patient Health Record ---
Author Organization [facility] [place] Address [address] [place] [address] Care Team Providers Care Nonprofit Fundraiser Name Role Phone Mj VÁZQUEZ, Veronica Ugarte Primary Care Provider Un available Ursula Forrest Unavailable [phone] ALLERGIES No Known Allergies REASON FOR REFERRAL No Information MEDICATIONS Medication SIG (Take, Route, Frequency, Duration) Notes Start Date End Date Status SUMAtriptan Succinate Not-Taking Ibuprofen 800 MG 1 tablet every Orall y Three times a day for 10 days 01/21/2018 Not-Taking traZODone HCl Active Levothyroxine Sodium Active Estradiol 0.5 MG 1 tablet for 3 weeks , off 1 week then repeat Orally Once a day for 30 day(s) Not-Taking Ciprofloxacin HCl No t-Taking Ibuprofen 800 MG 1 tablet with food o r milk as needed Orally Three times a day for 14 days 07/09/2020 Not-Taking Tylenol Extra Strength Active Prolia Active amLODIPine Besylate 5 MG 1 tablet Orally Once a day for 30 day(s) Active Simvastatin 5 MG 1 tablet every eveni ng Orally Once a day Active Walking Boot/Pneumatic As directed Wear Daily for Until further notice 11/27/2017 Not-Taking Percocet 5-325 MG 1-2 tablet as needed Orally every 4-6 hrs for as needed 11/27/2017 Not-Taking Physical Therapy . . . 2-3x/week for 3- 4 weeks 01/11/2018 Not-Taking Keflex 500 MG 1 capsule Orally solis ry 12 hrs for 7 days 12/25/2017 Not-Taking Ibuprofen 800 MG 1 tablet with food o r milk as needed Orally Three times a day for 30 days 11/27/2017 Not-Taking Ondansetron Not-Taki ng Gabapentin 300 MG 1 capsule Orally twi ce a day for 30 day(s) 07/09/2020 Not-Taking metroNIDAZOLE Not-Ta rashad Neurontin 300 MG 1 capsule Orally Thr ee times a day for 90 days Not-Taki ng Feldene 20 MG 1 capsule with food Orally Once a day for 30 day(s) 11/02/2017 Not-Taking Acetaminophen-Codeine #3 Not-Taking IMMUNIZATIONS Vaccine Route Administration Date Status Comme nts COVID-19 Moderna Vaccine Unknown 03/24/2020 Administered second dose on 04/22/2020 Influenza Unknown 12/18/2017 Administered SOCIAL HISTORY Tobacco Use: Social History Observation Description Date Details (start date - stop date) Never Smoker NA - NA Sex Assigned At : Social History Observation Description Sex Assigned At Unknown Tobacco Use/Smoking Question Answer Notes Are you a: nonsmoker Additional Findings: Tobacco Non-User Cu rrent non-smoker, but past smoking history unknown Alcohol Screen Question Answer Notes Did you have a drink containing alcohol in the p ast year? No Points 0 Interpretation Negative Tobacco use other than smoking: Question Answer Notes Are you an other tobacco user? No PROBLEMS Problem Type ICD Code Onset Dates Problem Status W/U Status Risk SNOMED Code Notes Problem Hallux valgus (acquired), left foot (M20.12) Active confirmed Acquired hallux valgus (13456267) Problem Hallux valgus (acquired), right foot (M20.11) Active confirmed Acquired hallux valgus (64163915) Problem Contracture , 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) Active confirmed [id number] Problem Hammer toe of right foot (M20.41) Active confirmed [id number] Problem Hammer toe of left foot (M20.42) Active confirmed [id number] PLAN OF TREATMENT Pending Test Test Name Order Date X ray : Foot, left 3V 04/21/2020 X ray : Foot, left 3V 07/12/2020 X ray : Foot, left 3V 08/03/2020 X ray : Foot, left 3V 07/21/2020 X ray : Foot, left 3V 08/20/2020 X ray : Foot, left 3V 09/03/2020 X ray : Foot, left 3V 09/24/2020 X ray : Foot, right 3V 03/01/2018 X ray : Foot, right 3V 12/25/2017 X ray : Foot, right 3V 01/01/2018 X ray : Foot, right 3V 01/11/2018 X ray : Foot, right 3V 02/01/2018 X ray : Foot, right 3V 03/10/2011 X ray : Foot, right 3V 08/14/2017 X ray : Foot, right 3V 12/18/2017 Insurance Providers Payer Name Payer Address Payer Phone Subscriber Number Group Number Insured Name Patient Relationship to Insured Coverage Start Date Coverage End Date [facility] [address] [facility] [place] [address] [phone] [id number] Fani Faust Self - patient is the insured MEDICAL (GENERAL) HISTORY Medical History History ICD Code Arthritis broken bones mumps Depression Diverticulosis thyroid Surgical History Surgery Date(Month/Year) disc surgery 1999 Rj Valenzuela R w trista, 2 MPJ Caps/Ten R, HT repair 2nd, 3rd, 4th R SE: [place] [facility] 12/13/2017 Hospitalization History Reason Date(Month/Year[place] [facility] [place] [facility] [place] bleeding outside of brain
[2023-09-11 08:57] VITALS: BP 118/76; PULSE 76; TEMP 36.8; O2SAT 97; BMI 23.1
--- NOTE | 2023-09-11 08:57 | MHC.OFFWIV ---
Intake Vital Signs 09/11/23 08:57 Height 5 ft 6 in Weight 143 lb BMI 23.1 BP 118/76 Blood Pressure Location Lt brachial Position Sitting Pulse 76 Pulse Source Pulse Oximeter Temp 98.3 F Temp Source Oral Pulse Oximetry (%) 97 Oxygen Delivery Method Room Air Intake Visit Reasons: EP laceration rt leg/infected Intake Note: Pt is here today for infected wound on rt leg Patient Tobacco Use Status: Former Tobacco user Allergies No Known Allergies Allergy (Verified 09/11/23 08:58) Do you need a note to return to daycare/school/sports/work: No HPI HPI Comments History of Present Illness Details Patient is an 82-year-old female who states 4 days ago she was pushing a tractor into her shed with her when the tractors we will went into her right jeff she states she had a large skin flap/tear so her and her irrigated it with a cleaning solution and taped it closed with Steri-Strips. She denies being on a blood thinner, she denies any of the metal coming in contact with her skin, she says it was just the wheel. She states she thought it was fine but then noticed today is started getting tender and swollen and warm so she is concerned it is infected. She is able to walk on the leg and denies any pain, she is able to move all of her toes and her ankle and she states there is no swelling in her ankle or foot. She denies any fevers. 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 Mother No problems noted. Brother Heart disease Brother Heart attack Social History Household Members: Spouse Housing: House Are you a primary tire care manager to a significant other at home: No Do you presently have visiting nurse or other home services: No Alcohol intake: current Alcohol intake frequency: holidays/special occasions only Alcohol type: wine Comment: patient refuses high risk safety precautions Patient Tobacco Use Status: Former Tobacco user Years Smoked: 10 +/- e-Cigarette/Vaping Use: Never Used service: No Current occupational status: retired Cognitive needs: No Hearing needs: No Vision needs: Yes Review of Systems Const All systems reviewed & are unremarkable except as noted in HPI and below Physical Exam Vital Signs: Last Vital Signs Temp 98.3 F 09/11/23 08:57 Pulse 76 09/11/23 08:57 BP 118/76 09/11/23 08:57 Pulse Ox 97 09/11/23 08:57 Oxygen Delivery Method Room Air 09/11/23 08:57 BMI result Body Mass Index 23.1 Const General: cooperative, healthy appearing, comfortable, no acute distress and well developed Orientation/consciousness: patient oriented x3 Limitations: no limitations HEENT Head: Yes normal to inspection Eyes General: appearance normal, both eyes and all related structures Neck Neck: Yes normal visual inspection and Yes full ROM Resp Effort & Inspection: normal respiratory effort and able to speak in complete sentences Skin Other: Anterior of right lower extremity has a large, 5 cm round area of ecchymosis with 10 Steri-Strips placed in the proximal half. The area is slightly indurated, erythematous and warm. There is no weeping noted Neuro General: patient oriented x3 Extrem General: Yes normal to inspection Assessment & Plan Assessment & Plan (1) Cellulitis: Code(s): L03.90 - Cellulitis, unspecified Qualifiers: Site of cellulitis: extremity Site of cellulitis of extremity: lower extremity Laterality: right Qualified Code(s): L03.115 - Cellulitis of right lower limb Plan: Recommended coming back in a few days if no improvement so we can add doxycycline however I think the cefuroxime is appropriate. Advised to keep clean and dry and cover when she goes outside, wash with soap and water. Plan See above Medications: New cefuroxime axetil 500 mg PO Q12H 10 tabs 0RF Coding Level of Care Code Est Pt Level 3 (36836) Diagnoses Cellulitis of right lower extremity L03.115 Site of cellulitis: extremity Site of cellulitis of extremity: lower extremity Laterality: right
== END 2023-09-11 09:21 | disposition home or self-care (01) ==
PROVIDERS: PCP Internal Medicine; Visit Provider Physician Assistant
DX: L03.115 Cellulitis of right lower limb (principal)
CPT/HCPCS: 99213

== ENCOUNTER 2023-09-14 08:51 | Outpatient (AMB) | payer MEDICARE, SELFPAY ==
--- OUTSIDE RECORDS SUMMARY | 2023-09-14 08:53 | XMS_ITS | Patient Health Record ---
Author Organization [facility] [place] Address [address] [place] [address] Care Team Providers Care People Manager Name Role Phone Mj VÁZQUEZ, Veronica Ugarte Primary Care Provider Un available Ursula Forrest Unavailable [phone] ALLERGIES No Known Allergies REASON FOR REFERRAL [...] foot (M20.12) Active confirmed Acquired hallux valgus (21629759) Problem Hallux valgus (acquired), right foot (M20.11) Active confirmed Acquired hallux valgus (19929722) Problem Contracture , 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) Active confirmed [id number] Problem Hammer toe of right foot (M20.41) Active confirmed [id number] Problem Hammer toe of left foot (M20.42) Active confirmed [id number] PLAN OF TREATMENT Pending Test Test Name [...] Insured Coverage Start Date Coverage End Date [facility] [address] [place] [address] [id number] Fani Faust Self - patient is the insured MEDICAL (GENERAL) HISTORY Medical History History ICD Code Arthritis broken bones mumps Depression Diverticulosis thyroid Surgical History Surgery Date(Month/Year) disc surgery 1999 Rj Valenzuela R w trista, 2 MPJ Caps/Ten R, HT repair 2nd, 3rd, 4th R SE: [place] [facility] 12/13/2017 Hospitalization History Reason Date(Month/Year) [facility]- Diverticulitis 05/2017 [facility]- fall - bleeding outside of brain
--- NOTE | 2023-09-14 09:11 | AM.OFFWIN_ITS ---
Intake Vital Signs 3 09/14/23 09:12 Height 5 ft 6 in Weight 142 lb BMI 22.9 BP 134/76 Blood Pressure Location Lt brachial Position Sitting Pulse 80 Pulse Source Pulse Oximeter Temp 98.5 F Temp Source Oral Pulse Oximetry (%) 97 Oxygen Delivery Method Room Air Intake Visit Reasons: EP ?RT leg infection Intake Note: pt here c/o ? RT leg infection. Was seen 09/10. On abx Patient Tobacco Use Status: Former Tobacco user Allergies No Known Allergies Allergy (Verified 09/14/23 09:11) Do you need a note to return to daycare/school/sports/work: No HPI HPI Comments 2 History of Present Illness0 Details 82 y/o female patient who presents to [facility] walk in clinic with c/o right lower leg infection. She was seen here back in Sunday by Katheryn, and diagnosed with Cellulitis and prescribed Abx. Today Pt reports still pain, redness and skin warmth. 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 Mother No problems noted. Brother Heart disease Brother Heart attack Social History Household Members: Spouse Housing: House Are you a primary home child care provider to a significant other at home: No Do you presently have visiting nurse or other home services: No Alcohol intake: current Alcohol intake frequency: holidays/special occasions only Alcohol type: wine Comment: patient refuses high risk safety precautions Patient Tobacco Use Status: Former Tobacco user Years Smoked: 10 +/- e-Cigarette/Vaping Use: Never Used service: No Current occupational status: retired Cognitive needs: No Hearing needs: No Vision needs: Yes Review of Systems Const All systems reviewed & are unremarkable except as noted in HPI and below Physical Exam Vital Signs: Last Vital Signs Temp 98.5 F 09/14/23 09:12 Pulse 80 09/14/23 09:12 BP 134/76 09/14/23 09:12 Pulse Ox 97 09/14/23 09:12 Oxygen Delivery Method Room Air 09/14/23 09:12 BMI result Body Mass Index 22.9 Const General: comfortable and no acute distress Orientation/consciousness: patient oriented x3 Skin General skin exam: erythema Full body images: 2 1. Large bruise, erythematous, tender to touch. Signs of healing, wound edges well approximated. No drainage. Neuro General: patient oriented x3 Psych Speech and movement: Normal speech and movement present Assessment & Plan Assessment & Plan (1) Cellulitis: Code(s): L03.90 - Cellulitis, unspecified Qualifiers: Laterality: right Site of cellulitis: extremity Site of cellulitis of extremity: lower extremity Qualified Code(s): L03.115 - Cellulitis of right lower limb Plan: Re-dressed the wound with clean bandages. Ordered Doxy Acetaminophen for pain relief. Medications: New 2 doxycycline hyclate 100 mg PO BID 14 caps 0RF 7 days L03.115 - Cellulitis of right lower limb Coding Level of Care Code Est Pt Level 3 (15957) Diagnoses Cellulitis of right lower extremity L03.115 Laterality: right Site of cellulitis: extremity Site of cellulitis of extremity: lower extremity Time Spent (min) 15
[2023-09-14 09:12] VITALS: BP 134/76; PULSE 80; TEMP 36.9; O2SAT 97; BMI 22.9
== END 2023-09-14 09:47 | disposition home or self-care (01) ==
PROVIDERS: PCP Internal Medicine; Visit Provider Nurse Practitioner Family
DX: L03.115 Cellulitis of right lower limb (principal)
CPT/HCPCS: 99213

== ENCOUNTER 2023-10-23 08:02 | Outpatient (REF) | payer MEDICARE, SELFPAY ==
[2023-11-01 16:04] LABS: N-Telopeptide 33 (see note); NTXCreaRU 18 mg/dL (20-275)
== END 2023-10-23 08:03 | disposition home or self-care (01) ==
LOC: HO.HMGCLDS 08:02
PROVIDERS: PCP Internal Medicine; Visit Provider Internal Medicine Endocrinology, Diabetes & Metabolism
DX: M81.0 Age-related osteoporosis without current pathological fracture (principal)
CPT/HCPCS: 82523

== ENCOUNTER 2023-10-24 07:46 | Outpatient (AMB) | payer MEDICARE, SELFPAY ==
--- NOTE | 2023-10-24 07:58 | MHC.OFFVIS ---
Vital Signs 10/24/23 07:59 Height 5 ft 2.32 in Weight 143 lb 4.807 oz BMI 25.9 BP 116/64 Blood Pressure Location Lt brachial Position Sitting Pulse 84 Pulse Source Pulse Oximeter Intake Visit Reasons: Osteoporosis/CONFIRMED Intake Note: Patient last seen on 04/25/23 present today for Osteoporosis follow up. Napping Machine Operator Required: No Accompanied by: Self / Same As Patient Allergies No Known Allergies Allergy (Verified 10/24/23 08:00) HPI Comments Details: 83 YO Female with PMHx Osteoporosis, HTN, HLD, Hypothyroidism who is seen in F/U for Osteoporosis. First diagnosed in January of 2018 when she had her first screening DXA. This revealed Osteoporosis of both the spine in the hip and she was referred to Endocrinology for this. She was last seen in early Mar 2018 at which time we sent her for full lab evaluation. She was provided with information regarding bisphosphonates and denosumab. Denosumab was ordered, but cost was prohibitive for her. She then agreed to try Reclast. She had three Reclast infusions November 2018, 01/30/2020, and 03/29/2021. She tolerated these well. Has 2 servings of dietary calcium per day in the form of milk, yogurt or cheese. Does take a Calcium supplement 500 mg PO daily. Takes Vitamin D 1000 IU daily. Denies ever using PPI, anticoagulant, antiepileptic. Does have cortisone injection q3 months into bursa. Does weight bearing exercise 4-5 days per week in the form of walking 3-4 miles at a time. Fracture history: Had fragility fracture of the radius in 2009. Height loss: Denies height loss. 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 Menarche at age 7, had EDDI/BSOO due to Endometriosis at the age of 25. Did use HRT. History of Kidney stones: Denies personal or family history of kidney stones. No family history of Osteoporosis or hip fracture. UTD on dental cleanings and sees dentist every 6 months. No planned upcoming dental work or extractions. DXA dated: 03/07/2022 FINDINGS: AP SPINE L1-L2 (excluding L3 and L4): The data of L1-L4 has been changed to exclude the L3 and L4 vertebral bodies, because degenerative changes at these levels may cause overestimation of lumbar spine density. Current: BMD 0.842 g/cm2, Z-score -0.6, T-score -2.7, osteoporosis, 2.7% increase from previous, 6.4% increase from baseline (<5% change is not significant). Prior: BMD 0.820 g/cm2. Baseline: BMD 0.791 g/cm2. LEFT FEMUR, NECK: Current: BMD 0.745 g/cm2, Z-score 0.3, T-score -2.1, osteopenia. Prior: BMD 0.735 g/cm2. Baseline: BMD 0.715 g/cm2. LEFT FEMUR, TOTAL: Current: BMD 0.817 g/cm2, Z-score 0.8, T-score -1.5, osteopenia, 0.4% increase from previous, 3.8% increase from baseline (<5% change is not significant). Prior: BMD 0.814 g/cm2. Baseline: BMD 0.787 g/cm2. 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 Mother No problems noted. Brother Heart disease Brother Heart attack Social History Household Members: Spouse Housing: House Are you a primary neonatal critical care nurse to a significant other at home: No Do you presently have visiting nurse or other home services: No Alcohol intake: current Alcohol intake frequency: holidays/special occasions only Alcohol type: wine Comment: patient refuses high risk safety precautions Patient Tobacco Use Status: Former Tobacco user Years Smoked: 10 +/- e-Cigarette/Vaping Use: Never Used service: No Current occupational status: retired Cognitive needs: No Hearing needs: No Vision needs: Yes Physical Exam Vital Signs: Last Vital Signs Pulse 84 10/24/23 07:59 BP 116/64 10/24/23 07:59 BMI result Body Mass Index 25.9 Assessment & Plan Assessment & Plan (1) Osteoporosis: Code(s): M81.0 - Age-related osteoporosis without current pathological fracture Category: Medical Qualifiers: Osteoporosis type: unspecified Presence of current pathological fracture: unspecified Qualified Code(s): M81.0 - Age-related osteoporosis without current pathological fracture Plan: This is a 83-year-old white female with a history of osteoporosis with secondary workup negative received 3 doses of Reclast. She is currently on calcium and vitamin-D supplementation. Secondary workup is negative. Repeat PTH was normal Plan is to check urinary NTX when it is available. Will follow urine NTX and if elevated will give another dose of Reclast but otherwise hold off and repeat DEXA bone density in 5 mos Orders: Orders XR DEXA axial skeleton 5 Months M81.0 - Age-related osteoporosis without current pathological fracture Collagen Crosslinks NTX 5 Months M81.0 - Age-related osteoporosis without current pathological fracture Coding Level of Care Code Est Pt Level 3 (17103) Diagnoses Osteoporosis, unspecified osteoporosis type, unspecified pathological fracture presence M81.0 Osteoporosis type: unspecified Presence of current pathological fracture: unspecified
[2023-10-24 07:59] VITALS: BP 116/64; PULSE 84; BMI 25.9
== END 2023-10-24 08:12 | disposition home or self-care (01) ==
PROVIDERS: PCP Internal Medicine; Visit Provider Internal Medicine Endocrinology, Diabetes & Metabolism
DX: M81.0 Age-related osteoporosis without current pathological fracture (principal)
CPT/HCPCS: 99213

== ENCOUNTER → 2023-10-24 07:46 | Outpatient (BNVA) | payer MEDICARE, SELFPAY | PROVIDERS: PCP Internal Medicine; Visit Provider Internal Medicine Endocrinology, Diabetes & Metabolism | DX: M81.0 Age-related osteoporosis without current pathological fracture (principal); E78.5 Hyperlipidemia, unspecified; E03.9 Hypothyroidism, unspecified | CPT/HCPCS: 99212 ==

== ENCOUNTER 2023-11-26 06:55 | Outpatient (REF) | payer MEDICARE, SELFPAY ==
[2023-11-26 10:45] LABS: Alanine Aminotransferase 26 U/L (0-31); Anion Gap 10 (12-20); Aspartate Amino Transferase 18 U/L (5-31); Blood Urea Nitrogen 12 mg/dL (9-16); Calcium 9.3 mg/dL (8.4-10.2); Carbon Dioxide 27 mmol/L (22-29); Chloride 112 mmol/L (96-108); Cholesterol 162 mg/dL (<200); Estimated Glomerular Filt Rate > 60; Glucose Fasting 86 mg/dL (60-99); HDL Cholesterol 67 mg/dL (>40); LDL Cholesterol Calculated 76 mg/dL (<100); Potassium 3.4 mmol/L (3.3-5.1); Sodium 146 mmol/L (135-145); Triglycerides 97 mg/dL (<150)
== END 2023-11-26 06:56 | disposition home or self-care (01) ==
LOC: HO.HMGCLDS 06:55
PROVIDERS: PCP Internal Medicine; Visit Provider Internal Medicine
DX: E78.5 Hyperlipidemia, unspecified (principal); I10 Essential (primary) hypertension
CPT/HCPCS: 36415; 80048; 80061; 84450; 84460

== ENCOUNTER 2023-11-28 10:46 | Outpatient (AMB) | payer MEDICARE, SELFPAY ==
--- NOTE | 2023-11-28 11:11 | MHC.PC.OV ---
Vital Signs 11/28/23 11:13 Height 5 ft 2 in Weight 142 lb BMI 26.0 BP 130/78 Blood Pressure Location Rt brachial Position Sitting Pulse 80 Pulse Source Pulse Oximeter Pulse Oximetry (%) 95 Oxygen Delivery Method Room Air Intake Visit Reasons: Annual PE Intake Note: Pt is here today for her PE: Last bone density scan 03/07/22 Allergies No Known Allergies Allergy (Verified 11/29/23 13:47) Medication List - Last Reconciled 11/29/23 by Veronica Barker MD amlodipine 5 mg PO DAILY aspirin (Adult Low Dose Aspirin) 81 mg PO DAILY atorvastatin 40 mg PO BEDTIME 90 days levothyroxine 50 mcg PO QAM sumatriptan succinate 50 mg PO DAILY PRN trazodone 200 mg PO BEDTIME Tobacco use date assessed: 11/28/23 Fall risk assessment: No Falls in past year Last assessed Fall Risk: 11/28/23 Dental Screening Dental Screen Date: 11/28/23 Did you have a dental visit in the last 12 months?: No Did you have a dental problem in the last 6 months where you did not have access to dental care?: No Was dental information given to patient?: Patient has dentist HPI Annual PE HPI Details 83-year-old lady with hyperlipidemia, hypothyroidism, history of migraine headache and hypertension, here today for physical exam.. She is currently being followed by Dr. Copeland for her osteoporosis, seen 2 months ago.. She had a negative secondary workup, and PTH was normal. , received 3 doses of Reclast, and is currently on calcium and vitamin-D supplementation. Plan is to repeat another urine NTX and if elevated to be given another dose of Reclast, but otherwise to hold off until repeat bone density scan done in 5 months She is up-to-date with all her vaccinations. 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 Mother No problems noted. Brother Heart disease Brother Heart attack Social History Household Members: Spouse Housing: House Are you a primary care tech to a significant other at home: No Do you presently have visiting nurse or other home services: No Alcohol intake: current Alcohol intake frequency: holidays/special occasions only Alcohol type: wine Comment: patient refuses high risk safety precautions Patient Tobacco Use Status: Former Tobacco user Years Smoked: 10 +/- e-Cigarette/Vaping Use: Never Used service: No Current occupational status: retired Cognitive needs: No Hearing needs: No Vision needs: Yes Questionnaire PHQ-9 Over the last 2 weeks, how often have you been bothered by any of the following problems? 1. Little interest or pleasure in doing things: not at all 2. Feeling down, depressed, or hopeless: not at all 3. Trouble falling or staying asleep, or sleeping too much: not at all 4. Feeling tired or having little energy: not at all 5. Poor appetite or overeating: not at all 6. Feeling bad about yourself - or that you are a failure or have let yourself or your family down: not at all 7. Trouble concentrating on things, such as reading the newspaper or watching television: not at all 8. Moving or speaking so slowly that other people could have noticed. Or the opposite - being so fidgety or restless that you have been moving around a lot more than usual: not at all 9. Thoughts that you would be better off or of hurting yourself in some way: not at all Total score: 0 Depression Screening Interpretation: Negative Depression Screening Done: Yes 29388 - PHQ-9 Billing: Yes Source: Developed by Drs. Gwyn Nicholson, Daylin Sánchez, Ramsey Tilley and colleagues, with an educational avtar from [employer] [place]. Thrive Questionnaire Date Thrive assessed: 04/13/23 I am a: Patient What is your living situation today?: I have a steady place to live Within the past 12 months, did the food you bought not last and you didn't have the money to get more?: Often true Within the past 12 months, did you worry whether your food would run out before you got money to buy more?: Often true Do you have trouble paying for medicines?: No Do you have trouble getting transportation to medical appointments?: No Do you have trouble paying your heating and electricity bill?: No Do you have trouble taking care of your child, family member or friend?: No Do you have trouble with day-to-day activities such as bathing, preparing meals, shopping, managing finances, etc.?: No Are you interested in more education?: No Please select the resources that you would like help with: None Currently or been in a relationship where the following occur: No concerns reported THRIVE Score: 2 AUDIT C Alcohol Use Questionnaire (AUDIT-C) 1. How often do you have a drink containing alcohol?: Monthly or less 2. How many drinks containing alcohol do you have on a typical day when you are drinking?: 1 or 2 3. How often do you have six or more drinks on one occasion?: Never Total Score: 1 ZAIRA-7 AMB Questionnaire ZAIRA-7 Date ZAIRA - 7 assessed: 04/13/23 Feeling nervous, anxious, or on edge: 0 = Not at all Not being able to stop or control worryin = Not at all Worrying too much about different things: 0 = Not at all Trouble relaxin = Not at all Being so restless that it is hard to sit still: 0 = Not at all Becoming easily annoyed or irritable: 0 = Not at all Feeling afraid as if something awful might happen: 0 = Not at all Total ZAIRA-7 score (0-4 normal; 5-9 mild; 10-14 moderate; 15-21 severe): 0 Source: Developed by Drs. Gwyn Nicholson, Daylin Sánchez, Ramsey Tilley and colleagues, with an educational avtar from [employer]. ZAIRA-7 Assessment Billing ZAIRA-7 Assessment Tool: ZAIRA-7 Assessment 08220 Review of Systems Const Denies fatigue, Denies fever(s), Denies frequent falls, Denies snoring and Denies weakness Eyes Denies change in vision ENT Denies dizziness and Denies hearing loss Card Denies chest pain, Denies chest pain with activity, Denies syncope, Denies edema, Denies claudication, Denies leg edema, Denies lightheadedness, Denies palpitations and Denies dyspnea Resp Denies cough, Denies dyspnea, Denies snoring and Denies wheezing GI Denies abdominal pain, Denies change in bowel habits, Denies change in stool character, Denies heartburn, Denies nausea and Denies vomiting Denies hematuria, Denies urinary frequency and Denies dysuria Musc Denies arthralgias, Denies muscle weakness, Denies numbness and Denies tingling Skin/Breast Denies breast skin changes, Denies breast pain, Denies breast mass and Denies rash Neuro Denies Abnormal speech present, Denies dizziness, Denies syncope, Denies frequent falls, Denies numbness, Denies tingling and Denies weakness Psych Reports no additional complaints Endo Denies fatigue and Denies palpitations Guy/Lymph Reports no additional complaints Aller/Immun Denies wheezing Physical exam (Primary Care) Vital Signs: Last Vital Signs Pulse 80 11/28/23 11:13 BP 130/78 11/28/23 11:13 Pulse Ox 95 11/28/23 11:13 Oxygen Delivery Method Room Air 11/28/23 11:13 BMI result Body Mass Index 26.0 Tobacco/Smoking Status: Tobacco use Status Tobacco use date assessed 11/28/23 11/28/23 11:22 Patient Tobacco Use Status Former Tobacco user 11/28/23 11:15 e-Cigarette/Vaping Use Never Used 11/28/23 11:15 PHQ-9: PHQ-9 Score PHQ-9: Total score 0 11/28/23 11:51 Depression Screening Interpretation: Negative Thrive Assessment: Date of Thrive Assessment Date Thrive assessed 04/13/23 11/28/23 11:15 Currently or been in a relationship where the following occur: No concerns reported Const Other: Alert oriented x3, no acute distress noted, ambulatory normal gait HENMT Head: Yes normocephalic Ears: external ears normal, TM's normal bilaterally and EAC's normal General nose exam: Normal external nose present Face and sinus: Yes face symmetric Mouth: Normal oral and palatal mucosa present and moist mucous membranes Eyes General: appearance normal, both eyes and all related structures Neck Neck: Yes full ROM, Yes no lymphadenopathy and Yes supple Thyroid: Thyroid normal Chest Breast/axilla palpation: normal palpation of the breasts Resp Auscultation: clear to auscultation bilaterally Cardio Other: S1-S2 present regular rate and rhythm GI Inspection: Yes normal to inspection Palpation (GI): Soft to palpation, nontender, no guarding and no masses General: Yes no CVA tenderness Back/Spine/Pelvis Back: no CVA tenderness Neuro Speech: No Abnormal speech present Extrem General: Yes full ROM, Yes no joint enlargement, Yes no clubbing, cyanosis or edema and Yes normal gait Psych Appearance: grossly normal and well kempt Affect: normal affect Thought process: Normal thought process present Results Reviewed Results Reviewed: Name: Fani Faust Age/Sex: 83/F : 1940 Unit#: [id number] Attend Dr: Veronica Barker MD Re11/26/23 Status: DEP [facility]: SPEC : [id number] [place]: 11/26/23-5 STATUS: COMP REQ : [id number] RECD: 11/26/23-[address]: Veronica Barker MD COMP: 11/26/23-5 ENTERED: 11/26/23-[address] [facility] [address]: ORDERED: Met Prof Fast, AST, ALT, Lipid Panel Test Result Flag Reference Sodium 146 H 135-145 mmol/L Potassium 3.4 3.3-5.1 mmol/L CL 112 H 96-108 mmol/L CO2 27 22-29 mmol/L Gap 10 L 12-20 BUN 12 9-16 mg/dL Creat 0.71 0.5-1.4 mg/dL EGFR > 60 NOTE: For -[place] individuals, multiply the result by 1.210. Chronic Kidney Disease: Estimated GFR < 60 mL/min/1.73m2 Severe Kidney Disease: Estimated GFR < 15 mL/min/1.73m2 FBS 86 60-99 mg/dL CA 9.3 8.4-10.2 mg/dL AST (GOT) 18 5-31 U/L ALT (GPT) 26 0-31 U/L Triglyceride 97 <150 mg/dL Desirable Triglyceride: less than 150 mg/dL Borderline High Triglyceride 150-199 mg/dL High Triglyceride: 200-499 mg/dL Very High Triglyceride: greater than or equal to 5OO mg/dL Cholesterol 162 <200 mg/dL Desirable Cholesterol: less than 200 mg/dL Borderline High Cholesterol: 200-239 mg/dL High Cholesterol: greater than 239 mg/dL LDL Calculated 76 <100 mg/dL Desirable LDL: less than 100 mg/dL Near Optimal/Above Optimal LDL: 110-129 mg/dL Borderline High LDL: 130-159 mg/dL High LDL: 160-189 mg/dL Very High LDL: greater than or equal to 190 mg/dL HDL 67 >40 mg/dL Desirable HDL: greater than 40 mg/dL Note: This HDL assay may give artificially low results in patients with liver disease. Coding Level of Care Code Est Pt Prev Care >65y(86106) Diagnoses Pure hypercholesterolemia E78.00 Hyperlipidemia type: pure hypercholesterolemia Essential hypertension I10 Hypertension type: essential hypertension Migraine G43.909 Acquired hypothyroidism E03.9 Hypothyroidism type: acquired Osteoporosis, unspecified osteoporosis type, unspecified pathological fracture presence M81.0 Osteoporosis type: unspecified Presence of current pathological fracture: unspecified Annual visit for general adult medical examination with abnormal findings Z00.01 Additional Codes ZAIRA-7 Assessment Billing - ZAIRA-7 Assessment Tool: ZAIRA-7 Assessment 84543 ([id number]) Assessment & Plan Assessment & Plan (1) Hyperlipidemia: Code(s): E78.5 - Hyperlipidemia, unspecified Category: Medical Qualifiers: Hyperlipidemia type: pure hypercholesterolemia Qualified Code(s): E78.00 - Pure hypercholesterolemia, unspecified Plan: Reviewed recent fasting lipid profile with patient with levels within normal limit . Continue atorvastatin 40 mg daily , in addition to adherence to low-cholesterol diet and regular exercise, at least 30 minutes 3 to 4 times a week. Advised patient to make healthy food choices, eat more fruits, vegetables, whole grains, wild caught fish and low-fat dairy. Limit amount of meat and fried or fatty food products, as well as processed foods and fast foods. (2) HTN (hypertension): Code(s): I10 - Essential (primary) hypertension Category: Medical Qualifiers: Hypertension type: essential hypertension Qualified Code(s): I10 - Essential (primary) hypertension Plan: Blood pressure at goal of less than 130/80. Continue with current medication. Reinforced importance of following a low sodium diet, getting regular exercise, and lowering stress levels. (3) Migraine: Code(s): G43.909 - Migraine, unspecified, not intractable, without status migrainosus Category: Medical Plan: Takes sumatriptan as needed (4) Hypothyroidism: Code(s): E03.9 - Hypothyroidism, unspecified Category: Medical Qualifiers: Hypothyroidism type: acquired Qualified Code(s): E03.9 - Hypothyroidism, unspecified Plan: Continue with current dose of levothyroxine 50 mcg daily (5) Osteoporosis: Code(s): M81.0 - Age-related osteoporosis without current pathological fracture Category: Medical Qualifiers: Osteoporosis type: unspecified Presence of current pathological fracture: unspecified Qualified Code(s): M81.0 - Age-related osteoporosis without current pathological fracture Plan: Followed by Dr. Copeland, to have a repeat bone density scan again in 5 months, and would start done whether to continue with Reclast (6) Annual visit for general adult medical examination with abnormal findings: Code(s): Z00.01 - Encounter for general adult medical examination with abnormal findings Plan: Reviewed recent fasting lab results with patient Recommended dental visit every 6 months and regular eye exams, at least every 2 years. Take adequate calcium in diet and vitamin-D 3 at 2000 IU per cap once a day, in addition to weight-bearing exercises to help maintain good muscle tone and weight control. No longer gets mammograms or colonoscopies, due for another bone density scanning 5 months, up-to-date with all her vaccines Medications: Refilled amlodipine 5 mg PO DAILY 90 tabs 3RF I10 - Essential (primary) hypertension levothyroxine 50 mcg PO QAM 90 caps 3RF E03.9 - Hypothyroidism, unspecified
[2023-11-28 11:13] VITALS: BP 130/78; PULSE 80; O2SAT 95; BMI 26.0
== END 2023-11-28 11:59 | disposition home or self-care (01) ==
PROVIDERS: PCP Internal Medicine; Visit Provider Internal Medicine
DX: E78.00 Pure hypercholesterolemia, unspecified (principal); I10 Essential (primary) hypertension; G43.909 Migraine, unspecified, not intractable, without status migrainosus; E03.9 Hypothyroidism, unspecified; M81.0 Age-related osteoporosis without current pathological fracture; Z00.01 Encounter for general adult medical examination with abnormal findings

== ENCOUNTER → 2023-11-28 10:46 | Outpatient (BNVA) | payer MEDICARE, SELFPAY | PROVIDERS: PCP Internal Medicine; Visit Provider Internal Medicine | DX: Z00.01 Encounter for general adult medical examination with abnormal findings (principal); E78.00 Pure hypercholesterolemia, unspecified; I10 Essential (primary) hypertension; G43.909 Migraine, unspecified, not intractable, without status migrainosus; E03.9 Hypothyroidism, unspecified; M81.0 Age-related osteoporosis without current pathological fracture | CPT/HCPCS: 96127; 99397 ==

== ENCOUNTER 2024-02-13 08:31 | Outpatient (AMB) | payer MEDICARE, SELFPAY ==
--- OUTSIDE RECORDS SUMMARY | 2024-02-13 08:45 | XMS_ITS | Patient Health Record ---
Author Organization [facility] Address [address] [place] [address] Care Team Providers Care Skylights Assembler Name Role Phone Mj VÁZQUEZ, Veronica Ugarte Primary Care Provider Un available Ursula Forrest Unavailable [phone] Allergies No Known Allergies Reason For Referral No Information Medications Medication SIG (Take, Route, Frequency, Duration) Notes [...] 30 day(s) 11/02/2017 Not-Taking Acetaminophen-Codeine #3 Not-Taking Immunizations Vaccine Route Administration Date Status Comme nts COVID-19 Moderna Vaccine Unknown 03/24/2020 Administered second dose on 04/22/2020 Influenza Unknown 12/18/2017 Administered Social History Tobacco Use: Social History Observation Description Date Details (start date - stop date) Never Smoker NA - NA Tobacco Use/Smoking Question Answer Notes Are you a: nonsmoker Additional Findings: Tobacco Non-User Cu rrent non-smoker, but past smoking history unknown Alcohol Screen Question Answer Notes Did you have a drink containing alcohol in the p ast year? No Points 0 Interpretation Negative Tobacco use other than smoking: Question Answer Notes Are you an other tobacco user? No Problems Problem Type SNOMED Code ICD Code Onset Dates Problem Status W/U Status Risk Notes Problem Acquired hallux valgus (96463402) Hallux valgus (acquired), left foot (M20.12) Active confirmed Problem Acquired hallux valgus (33632204) Hallux valgus (acquired), right foot (M20.11) Active confirmed Problem [id number] Contracture , 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) Active confirmed Problem [id number] Hammer toe of right foot (M20.41) Active confirmed Problem [id number] Hammer toe of left foot (M20.42) Active confirmed Plan Of Treatment Pending Test Test Name Order Date X ray : Foot, left 3V 04/21/2020 X ray : Foot, left 3V 07/12/2020 X ray : Foot, left 3V 07/21/2020 X ray : Foot, left 3V 08/03/2020 X ray : Foot, left 3V 08/20/2020 X ray : Foot, left 3V 09/03/2020 X ray : Foot, left 3V 09/24/2020 X ray : Foot, right 3V 02/01/2018 X ray : Foot, right 3V 03/10/2011 X ray : Foot, right 3V 08/14/2017 X ray : Foot, right 3V 12/18/2017 X ray : Foot, right 3V 12/25/2017 X ray : Foot, right 3V 01/01/2018 X ray : Foot, right 3V 01/11/2018 X ray : Foot, right 3V 03/01/2018 Insurance Providers Payer Name Payer Address Payer Phone Subscriber Number Group Number Insured Name Patient Relationship to Insured Coverage Start Date Coverage End Date [facility] [address] [place] [place] [address] [id number] Fani Faust Self - patient is the insured Medical (General) History Medical History History ICD Code Arthritis broken bones mumps Depression Diverticulosis thyroid Surgical History Surgery Date(Month/Year) disc surgery 1999 jR Valenzuela R w trista, 2 MPJ Caps/Ten R, HT repair 2nd, 3rd, 4th R SE: [place] 12/13/2017 Hospitalization History Reason Date(Month/Year) [facility] [place] Diverticulitis 05/2017 [facility] [place]- fall - bleeding outside of brain
[2024-02-13 09:22] VITALS: BP 140/62; PULSE 71; BMI 26.4
--- NOTE | 2024-02-13 09:22 | A.OFFVIS_ITS ---
Vital Signs 02/13/24 09:22 Height 5 ft 2 in Weight 144 lb 9.972 oz BMI 26.4 BP 140/62 H Blood Pressure Location Lt brachial Position Sitting Pulse 71 Pulse Source Monitor Intake Visit Reasons: 1 yr f/up Intake Note: 1 yr f/up Regulatory Affairs Associate Required: No Accompanied by: Self / Same As Patient Allergies No Known Allergies Allergy (Verified 11/29/23 13:47) Medication List - Last Reconciled 02/13/24 by Ruddy Cleveland MD amlodipine 5 mg PO DAILY aspirin (Adult Low Dose Aspirin) 81 mg PO DAILY atorvastatin 40 mg PO BEDTIME 90 days levothyroxine 50 mcg PO QAM sumatriptan succinate 50 mg PO DAILY PRN trazodone 200 mg PO BEDTIME HPI Comments Details: 83-year-old female who is referred to us because she was noticed to have Hollenhorst plaque in left eye on her routine ophthalmologic examination. She subsequent to that had an echocardiogram which showed normal ejection fraction of 50-55%. She had mild calcification of the aortic valve. No significant valvular disease otherwise was noticed. She has background history of hypertension hyperlipidemia. She also had carotid study which showed minimal plaque in both carotids. She has been taking simvastatin 10 mg once a day. She has no chest pain or shortness of breath. Otherwise active in her daily life without any functional limitations. 09/06/22: For follow-up. She has been doing fine. No chest discomfort or shortness of breath. No urological or visual complaints. She was started on atorvastatin 40 mg on last visit and her LDL cholesterol is 54. Total cholesterol 124, triglyceride 104 and HDL 50. Blood pressure control is good. She is taking baby aspirin. 02/14/2023: She returns for follow-up. She has been doing well. No chest pain or shortness of breath. Blood pressure control is good. 02/13/24: She is here for f/u. Blood pressure mildly elevated. She has been taking medications regularly. No visual changes. 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 Mother No problems noted. Brother Heart disease Brother Heart attack Social History Household Members: Spouse Housing: House Are you a primary palliative care nurse to a significant other at home: No Do you presently have visiting nurse or other home services: No Alcohol intake: current Alcohol intake frequency: holidays/special occasions only Alcohol type: wine Comment: patient refuses high risk safety precautions Patient Tobacco Use Status: Former Tobacco user Years Smoked: 10 +/- e-Cigarette/Vaping Use: Never Used service: No Current occupational status: retired Cognitive needs: No Hearing needs: No Vision needs: Yes Review of Systems Const Denies chills, Denies fatigue, Denies fever(s), Denies frequent falls, Denies weakness, Denies weight gain and Denies weight loss ENT Denies dizziness Card Denies chest pain, Denies leg edema, Denies lightheadedness, Denies palpitations, Denies dyspnea and Denies dyspnea on exertion Resp Denies cough, Denies dyspnea and Denies dyspnea on exertion GI Denies hematochezia Musc Denies abnormal gait, Denies muscle weakness, Denies numbness, Denies radiating pain into limb and Denies tingling Neuro Denies abnormal gait, Denies dizziness, Denies frequent falls, Denies numbness, Denies tingling and Denies weakness Endo Denies fatigue and Denies palpitations Physical Exam Vital Signs: Last Vital Signs Pulse 71 02/13/24 09:22 BP 140/62 H 02/13/24 09:22 BMI result Body Mass Index 26.4 GENERAL APPEARANCE: in no acute distress, pleasant. NECK: no carotid bruit, no jugular venous distention. SKIN: no suspicious lesions, warm and dry. HEART: Systolic murmur aortic area with preserved 2nd heart sound, regular rate and rhythm. LUNGS: clear to auscultation bilaterally. ABDOMEN: soft, nontender. EXTREMITIES: no edema. PERIPHERAL PULSES: equal. NEUROLOGIC: No gross deficits, AAO X 3 Office Procedures EKG Details: Sinus rhythm 71 beats per minute, premature atrial complexes, QTC 445 milliseconds. [id number], Complete Assessment & Plan Assessment & Plan (1) HTN (hypertension): Code(s): I10 - Essential (primary) hypertension Category: Medical Qualifiers: Hypertension type: essential hypertension Qualified Code(s): I10 - Essential (primary) hypertension (2) Hollenhorst plaque, left eye: Code(s): H34.212 - Partial retinal artery occlusion, left eye Category: Medical (3) Hyperlipidemia: Code(s): E78.5 - Hyperlipidemia, unspecified Category: Medical Qualifiers: Hyperlipidemia type: pure hypercholesterolemia Qualified Code(s): E78.00 - Pure hypercholesterolemia, unspecified Plan Pleasant 83-year-old female who is here for follow-up. Blood pressure mildly elevated. LDL cholesterol has improved after atorvastatin. Clinically stable at this point. No exertional symptoms. She will monitor BP and report log to us in 2 to 3 weeks. Follow-up with us in 1 year. Thank you for allowing me to participate in the care of your patient. Please feel free to contact me if you have any questions. Medications: New blood pressure monitor As directed 1 ea 0RF I10 - Essential (primary) hypertension Coding Level of Care Code Est Pt Level 4 (11483) Diagnoses Essential hypertension I10 Hypertension type: essential hypertension Hollenhorst plaque, left eye H34.212 Pure hypercholesterolemia E78.00 Hyperlipidemia type: pure hypercholesterolemia CPT Codes EKG - CPT: 77794-[id number], Complete ([id number])
== END 2024-02-13 09:46 | disposition home or self-care (01) ==
PROVIDERS: PCP Internal Medicine; Visit Provider Internal Medicine Cardiovascular Disease
DX: I10 Essential (primary) hypertension (principal); H34.212 Partial retinal artery occlusion, left eye; E78.00 Pure hypercholesterolemia, unspecified
CPT/HCPCS: 93010; 99214

== ENCOUNTER → 2024-02-13 08:31 | Outpatient (BNVA) | payer MEDICARE, SELFPAY | PROVIDERS: PCP Internal Medicine; Visit Provider Internal Medicine Cardiovascular Disease | DX: H34.212 Partial retinal artery occlusion, left eye (principal); E78.00 Pure hypercholesterolemia, unspecified; I10 Essential (primary) hypertension | CPT/HCPCS: 93005; 99212 ==

== ENCOUNTER 2024-04-22 10:25 | Outpatient (REF) | payer MEDICARE, SELFPAY ==
--- NOTE | ~2024-04-22 | MM_ITS ---
EXAMINATION: DXA BONE DENSITY AXIAL HISTORY: Estrogen deficiency TECHNIQUE: [employer] Dual energy absorptiometry (DEXA) of the lumbar spine, total left hip, and femoral neck was performed. COMPARISON: Comparison is made with the prior examination dated 03/07/2022. FINDINGS: The bone mineral density of the lumbar spine from L1-L2 is 0.823 with a T-score of -2.9, and a Z-score of -0.8. This represents a BMD change of -2.3% compared to the prior exam. This is not statistically significant. The bone mineral density of the left total hip is 0.834 with a T-score of -1.4, and a Z-score of 1.0. This represents BMD change of 2.1% compared to the prior exam. This is not statistically significant. The bone mineral density of the left femoral neck is 0.743 with a T-score of -2.1, and a Z-score of 0.4. This represents BMD change of -0.3% compared to the prior exam. FRACTURE RISK: The FRAX index suggests a ten year probability of major osteoporotic fracture of 23.7%, and of hip fracture 7.2%. MM/XR DEXA axial skeleton IMPRESSION: Based on bone mineral density, and according to World Health Organization (WHO) criteria, the diagnosis is consistent with osteoporosis. All bone density values are in grams per centimeter squared (g/cm2). Statistically, 68% of repeat scans fall within 1 SD (+/- 0.010 g/cm2 for AP spine L1-L4) and 1 SD (+/- 0.012 g/cm2 for femur total) FRAX is a trademark of the [employer] [place] for Metabolic Bone Disease, a World Health Organization (WHO) Collaborating Center. Electronically signed by: Gwyn Zuniga MD 04/22/2024 12:20 PM [facility]
--- OUTSIDE RECORDS SUMMARY | 2024-04-22 12:20 | XMS_ITS | Patient Health Record ---
Author Organization [facility] Address [address] [place] [address] Care Team Providers Care Senior C Software Developer Name Role Phone Mj VÁZQUEZ, Veronica Ugarte Primary Care Provider Un available Ursula Forrest Unavailable [phone] Allergies No Known Allergies Reason For Referral [...] Status Risk Notes Problem Acquired hallux valgus (08835781) Hallux valgus (acquired), left foot (M20.12) Active confirmed Problem Acquired hallux valgus (22143977) Hallux valgus (acquired), right foot (M20.11) Active confirmed Problem [id number] Contracture , 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) Active confirmed Problem [id number] Hammer toe of right foot (M20.41) Active confirmed Problem [id number] Hammer toe of left foot (M20.42) Active [...] Insured Coverage Start Date Coverage End Date [facility] [address] [place] [address] [id number] Fani Faust Self - patient is the insured Medical (General) History Medical History History ICD Code Arthritis broken bones mumps Depression Diverticulosis thyroid Surgical History Surgery Date(Month/Year) disc surgery 1999 jR Valenzuela R w trista, 2 MPJ Caps/Ten R, HT repair 2nd, 3rd, 4th R SE: Dell Asnis 12/13/2017 Hospitalization History Reason Date(Month/Year[place] [facility] [place] [facility] [place] bleeding outside of brain
== END 2024-04-22 10:26 | disposition home or self-care (01) ==
LOC: HO.MAMMO 10:25
PROVIDERS: PCP Internal Medicine; Visit Provider Internal Medicine Endocrinology, Diabetes & Metabolism
DX: M81.0 Age-related osteoporosis without current pathological fracture (principal)
CPT/HCPCS: 77080

== ENCOUNTER → 2024-04-22 11:00 | Outpatient (BNV) | payer MEDICARE, SELFPAY | PROVIDERS: PCP Internal Medicine; Visit Provider Radiology Diagnostic Radiology | DX: E28.39 Other primary ovarian failure (principal) | CPT/HCPCS: 77080 ==

== ENCOUNTER 2024-05-02 07:00 | Outpatient (REF) | payer MEDICARE, SELFPAY ==
--- OUTSIDE RECORDS SUMMARY | 2024-05-02 09:40 | XMS_ITS | Patient Health Record ---
Author Organization [facility] Address [address] [address] Care Team Providers Care Sider Mechanic Name Role Phone Mj VÁZQUEZ, Veronica Ugarte Primary Care Provider Un available Ursula Forrest Unavailable [phone] Allergies No Known Allergies Reason For Referral [...] Status Risk Notes Problem Acquired hallux valgus (13374178) Hallux valgus (acquired), left foot (M20.12) Active confirmed Problem Acquired hallux valgus (10580660) Hallux valgus (acquired), right foot (M20.11) Active confirmed Problem [id number] Contracture , 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) Active confirmed Problem [id number] Hammer toe of right foot (M20.41) Active confirmed Problem [id number] Hammer toe of left foot (M20.42) Active [...] Insured Coverage Start Date Coverage End Date [facility] [address] [place] [address] [id number] Fani Faust Self - patient is the insured Medical (General) History Medical History History ICD Code Arthritis broken bones mumps Depression Diverticulosis thyroid Surgical History Surgery Date(Month/Year) disc surgery 1999 Rj Valenzuela R w yu, 2 MPJ Caps/Ten R, HT repair 2nd, 3rd, 4th R SE: Yu Asnis 12/13/2017 Hospitalization History Reason Date(Month/[place] [facility] [place] [facility] [place] bleeding outside of brain
[2024-05-08 22:12] LABS: N-Telopeptide 21 (see note); NTXCreaRU 11 mg/dL (20-275)
== END 2024-05-02 07:01 | disposition home or self-care (01) ==
LOC: HO.HMGCLNP 07:00
PROVIDERS: PCP Internal Medicine; Visit Provider Internal Medicine Endocrinology, Diabetes & Metabolism
DX: M81.0 Age-related osteoporosis without current pathological fracture (principal)
CPT/HCPCS: 82523

== ENCOUNTER 2024-05-05 07:55 | Outpatient (AMB) | payer MEDICARE, SELFPAY ==
--- OUTSIDE RECORDS SUMMARY | 2024-05-05 07:58 | XMS_ITS | Patient Health Record ---
Author Organization [facility] Address [address] [facility] [place] [address] Care Team Providers Care Edger Feeder Name Role Phone Mj VÁZQUEZ, Veronica Ugarte Primary Care Provider Un available Ursula Forrest Unavailable [phone] Allergies No Known Allergies Reason For Referral [...] Status Risk Notes Problem Acquired hallux valgus (23830347) Hallux valgus (acquired), left foot (M20.12) Active confirmed Problem Acquired hallux valgus (41916746) Hallux valgus (acquired), right foot (M20.11) Active confirmed Problem [id number] Contracture , 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) Active confirmed Problem 618302179 Hammer toe of right foot (M20.41) Active confirmed Problem 854630436 Hammer toe of left foot (M20.42) Active [...] Insured Coverage Start Date Coverage End Date [facility] [address] [place] [address] [id number] Fani Faust Self - patient is the insured Medical (General) History Medical History History ICD Code Arthritis broken bones mumps Depression Diverticulosis thyroid Surgical History Surgery Date(Month/Year) disc surgery 1999 Rj Valenzuela R w yu, 2 MPJ Caps/Ten R, HT repair 2nd, 3rd, 4th R SE: Yu Asnis 12/13/2017 Hospitalization History Reason Date(Month/[place] [facility] [place] [facility] [place] bleeding outside of brain
--- NOTE | 2024-05-05 08:11 | MHC.OFFVIS ---
Vital Signs 05/05/24 08:12 Height 5 ft 2 in Weight 148 lb 12.739 oz BMI 27.2 BP 124/74 Blood Pressure Location Lt brachial Position Sitting Pulse 73 Pulse Source Pulse Oximeter Pulse Oximetry (%) 96 Oxygen Delivery Method Room Air Intake Visit Reasons: Osteoporosis Intake Note: Patient present today for Osteoporosis follow up. Heel Turner Required: No Accompanied by: Self / Same As Patient Allergies No Known Allergies Allergy (Verified 05/05/24 08:13) Medication List - Last Reconciled 05/05/24 by Gwyn Copeland MD amlodipine 5 mg PO DAILY aspirin (Adult Low Dose Aspirin) 81 mg PO DAILY atorvastatin 40 mg PO BEDTIME 90 days blood pressure monitor As directed levothyroxine 50 mcg PO QAM sumatriptan succinate 50 mg PO DAILY PRN trazodone 200 mg PO BEDTIME HPI Comments Details: 83 YO Female with PMHx Osteoporosis, HTN, HLD, Hypothyroidism who is seen in F/U for Osteoporosis. First diagnosed in January of 2018 when she had her first screening DXA. This revealed Osteoporosis of both the spine in the hip and she was referred to Endocrinology for this. She was last seen in early Mar 2018 at which time we sent her for full lab evaluation. She was provided with information regarding bisphosphonates and denosumab. Denosumab was ordered, but cost was prohibitive for her. She then agreed to try Reclast. She had three Reclast infusions November 2018, 01/30/2020, and 03/29/2021. She tolerated these well. Has 2 servings of dietary calcium per day in the form of milk, yogurt or cheese. Does take a Calcium supplement 500 mg PO daily. Takes Vitamin D 1000 IU daily. Denies ever using PPI, anticoagulant, antiepileptic. Does have cortisone injection q3 months into bursa. Does weight bearing exercise 4-5 days per week in the form of walking 3-4 miles at a time. Fracture history: Had fragility fracture of the radius in 2009. Height loss: Denies height loss. 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 Menarche at age 7, had EDDI/BSOO due to Endometriosis at the age of 25. Did use HRT. History of Kidney stones: Denies personal or family history of kidney stones. No family history of Osteoporosis or hip fracture. UTD on dental cleanings and sees dentist every 6 months. No planned upcoming dental work or extractions. DXA dated: 03/07/2022 FINDINGS: AP SPINE L1-L2 (excluding L3 and L4): The data of L1-L4 has been changed to exclude the L3 and L4 vertebral bodies, because degenerative changes at these levels may cause overestimation of lumbar spine density. Current: BMD 0.842 g/cm2, Z-score -0.6, T-score -2.7, osteoporosis, 2.7% increase from previous, 6.4% increase from baseline (<5% change is not significant). Prior: BMD 0.820 g/cm2. Baseline: BMD 0.791 g/cm2. LEFT FEMUR, NECK: Current: BMD 0.745 g/cm2, Z-score 0.3, T-score -2.1, osteopenia. Prior: BMD 0.735 g/cm2. Baseline: BMD 0.715 g/cm2. LEFT FEMUR, TOTAL: Current: BMD 0.817 g/cm2, Z-score 0.8, T-score -1.5, osteopenia, 0.4% increase from previous, 3.8% increase from baseline (<5% change is not significant). Prior: BMD 0.814 g/cm2. Baseline: BMD 0.787 g/cm2. Labs: Laboratory Tests 03/16/22 03/16/22 09:10 09:10 Sodium 139 Potassium 3.9 Creatinine 0.77 Estimated GFR > 60 25-OH Vitamin D Total 46.6 TSH 2.08 Free T4 1.29 PTH Intact 36 Calcium (PTH Intact) 9.3 No fx since last visit . recent DEXA showed stability in the bone density with continued osteoporosis. She has received 3 doses of Reclast in the past. Urine NTX is pending [facility] Medical History Vitamin D deficiency Hollenhorst plaque, left eye Acquired hammer toe deformity of lesser toe of left foot Hallux valgus (acquired), left foot Subdural hematoma, post-traumatic HTN (hypertension) Migraine Hypothyroidism Osteoporosis Surgical History Hx of foot surgery Hx of bilateral cataract extraction Hx of hammer toe correction History of bunionectomy Hx of cholecystectomy History of surgery on wrist Hx of flexible sigmoidoscopy History of tonsillectomy and adenoidectomy History of total abdominal hysterectomy and bilateral salpingo-oophorectomy History of back surgery Family History Father No problems noted. Mother No problems noted. Brother Heart disease Brother Heart attack Social History Household Members: Spouse Housing: House Are you a primary hospice home care coordinator to a significant other at home: No Do you presently have visiting nurse or other home services: No Alcohol intake: current Alcohol intake frequency: holidays/special occasions only Alcohol type: wine Comment: patient refuses high risk safety precautions Patient Tobacco Use Status: Former Tobacco user Years Smoked: 10 +/- e-Cigarette/Vaping Use: Never Used service: No Current occupational status: retired Cognitive needs: No Hearing needs: No Vision needs: Yes Physical Exam Vital Signs: Last Vital Signs Pulse 73 05/05/24 08:12 BP 124/74 05/05/24 08:12 Pulse Ox 96 05/05/24 08:12 Oxygen Delivery Method Room Air 05/05/24 08:12 BMI result Body Mass Index 27.2 Assessment & Plan Assessment & Plan (1) Osteoporosis: Code(s): M81.0 - Age-related osteoporosis without current pathological fracture Category: Medical Qualifiers: Osteoporosis type: unspecified Presence of current pathological fracture: unspecified Qualified Code(s): M81.0 - Age-related osteoporosis without current pathological fracture Plan: This is a 83-year-old white female with a history of osteoporosis with secondary workup negative received 3 doses of Reclast. She is currently on calcium and vitamin-D supplementation. Secondary workup is negative. Repeat PTH was normal. urine NTX is pending. Recent DEXA showed stability in the bone density Plan is to check urinary NTX when it is available. Will follow urine NTX and if elevated will give another dose of Reclast Coding Level of Care Code Est Pt Level 3 (22691) Diagnoses Osteoporosis, unspecified osteoporosis type, unspecified pathological fracture presence M81.0 Osteoporosis type: unspecified Presence of current pathological fracture: unspecified
[2024-05-05 08:12] VITALS: BP 124/74; PULSE 73; O2SAT 96; BMI 27.2
== END 2024-05-05 08:36 | disposition home or self-care (01) ==
PROVIDERS: PCP Internal Medicine; Visit Provider Internal Medicine Endocrinology, Diabetes & Metabolism
DX: M81.0 Age-related osteoporosis without current pathological fracture (principal)
CPT/HCPCS: 99213

== ENCOUNTER → 2024-05-05 07:55 | Outpatient (BNVA) | payer MEDICARE, SELFPAY | PROVIDERS: PCP Internal Medicine; Visit Provider Internal Medicine Endocrinology, Diabetes & Metabolism | DX: M81.0 Age-related osteoporosis without current pathological fracture (principal); E03.9 Hypothyroidism, unspecified; E78.5 Hyperlipidemia, unspecified; I10 Essential (primary) hypertension | CPT/HCPCS: 99212 ==

== ENCOUNTER 2024-06-02 07:54 | Outpatient (AMB) | payer MEDICARE, SELFPAY ==
--- OUTSIDE RECORDS SUMMARY | 2024-06-02 07:58 | XMS_ITS | Patient Health Record ---
Author Organization [facility] Address [address] [place] [address] Care Team Providers Care Scissors Sharpener Name Role Phone Mj VÁZQUEZ, Veronica Ugarte Primary Care Provider Un available Ursula Forrest Unavailable [phone] Allergies No Known Allergies Reason For Referral [...] Status Risk Notes Problem Acquired hallux valgus (38600379) Hallux valgus (acquired), left foot (M20.12) Active confirmed Problem Acquired hallux valgus (47035582) Hallux valgus (acquired), right foot (M20.11) Active confirmed Problem [id number] Contracture , 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) Active confirmed Problem [id number] Hammer toe of right foot (M20.41) Active confirmed Problem [id number] Hammer toe of left foot (M20.42) Active [...] Insured Coverage Start Date Coverage End Date [facility] [address] [facility] [place] [address] [id number] Fani Faust Self - patient is the insured Medical (General) History Medical History History ICD Code Arthritis broken bones mumps Depression Diverticulosis thyroid Surgical History Surgery Date(Month/Year) disc surgery 1999 Rj Valenzuela R w yu, 2 MPJ Caps/Ten R, HT repair 2nd, 3rd, 4th R SE: Yu Asnis 12/13/2017 Hospitalization History Reason Date(Month/Year[place] [facility] [place] [facility] [place] - bleeding outside of brain
[2024-06-02 08:31] VITALS: BP 132/82; PULSE 75; RESP 16; TEMP 36.7; O2SAT 97; BMI 27.2
--- NOTE | 2024-06-02 08:31 | A.OFFPC_ITS ---
Vital Signs 06/02/24 08:31 Height 5 ft 2 in Weight 149 lb BMI 27.2 BP 132/82 Blood Pressure Location Lt brachial Position Sitting Respiration 16 Pulse 75 Pulse Source Pulse Oximeter Temp 98.0 F Temp Source Oral Pulse Oximetry (%) 97 Oxygen Delivery Method Room Air Intake Visit Reasons: 6 month follow up Intake Note: Pt is here today for her 6mo. f/u Allergies No Known Allergies Allergy (Verified 06/02/24 08:52) Medication List - Last Reconciled 06/02/24 by Veronica Barker MD amlodipine 5 mg PO DAILY aspirin (Adult Low Dose Aspirin) 81 mg PO DAILY atorvastatin 40 mg PO BEDTIME 90 days blood pressure monitor As directed levothyroxine 50 mcg PO QAM sumatriptan succinate 50 mg PO DAILY PRN trazodone 200 mg PO BEDTIME Tobacco use date assessed: 06/02/24 Fall risk assessment: No Falls in past year Dental Screening Dental Screen Date: 06/02/24 Did you have a dental visit in the last 12 months?: Yes Was dental information given to patient?: Patient has dentist HPI 6 month follow up HPI Details 83-year-old lady with hyperlipidemia, hy pothyroidism, hypertension, here today for her follow-up. She has been taking her medications as directed, compliant with diet. She has been feeling well with no complaints at present time. She is currently being followed by Dr. Copeland over osteoporosis, has had 3 doses of Reclast and is currently on calcium and vitamin-D supplementation, she has an appointment to have another bone density scan done in 5 months and then will determine whether she needs another dose of Reclast after results reviewed. 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 Mother No problems noted. Brother Heart disease Brother Heart attack Social History Household Members: Spouse Housing: House Are you a primary career development coordinator to a significant other at home: No Do you presently have visiting nurse or other home services: No Alcohol intake: current Alcohol intake frequency: holidays/special occasions only Alcohol type: wine Comment: patient refuses high risk safety precautions Patient Tobacco Use Status: Former Tobacco user Years Smoked: 10 +/- e-Cigarette/Vaping Use: Never Used service: No Current occupational status: retired Cognitive needs: No Hearing needs: No Vision needs: Yes Questionnaire PHQ-9 Over the last 2 weeks, how often have you been bothered by any of the following problems? 1. Little interest or pleasure in doing things: not at all 2. Feeling down, depressed, or hopeless: not at all 3. Trouble falling or staying asleep, or sleeping too much: not at all 4. Feeling tired or having little energy: not at all 5. Poor appetite or overeating: not at all 6. Feeling bad about yourself - or that you are a failure or have let yourself or your family down: not at all 7. Trouble concentrating on things, such as reading the newspaper or watching television: not at all 8. Moving or speaking so slowly that other people could have noticed. Or the opposite - being so fidgety or restless that you have been moving around a lot more than usual: not at all 9. Thoughts that you would be better off or of hurting yourself in some way: not at all Total score: 0 Depression Screening Interpretation: Negative Depression Screening Done: Yes 67637 - PHQ-9 Billing: Yes Source: Developed by Drs. Gwyn Nicholson, Daylin Sánchez, Ramsey Tilley and colleagues, with an educational avtar from [employer]. Thrive Questionnaire Date Thrive assessed: 06/02/24 I am a: Patient What is your living situation today?: I have a steady place to live Within the past 12 months, did the food you bought not last and you didn't have the money to get more?: Never true Within the past 12 months, did you worry whether your food would run out before you got money to buy more?: Never true Do you have trouble paying for medicines?: No Do you have trouble getting transportation to medical appointments?: No Do you have trouble paying your heating and electricity bill?: No Do you have trouble taking care of your child, family member or friend?: No Do you have trouble with day-to-day activities such as bathing, preparing meals, shopping, managing finances, etc.?: No Are you currently unemployed and looking for a job?: No Are you interested in more education?: No Please select the resources that you would like help with: None Currently or been in a relationship where the following occur: No concerns reported THRIVE Score: 0 AUDIT C Alcohol Use Questionnaire (AUDIT-C) 1. How often do you have a drink containing alcohol?: Never Total Score: 0 ZAIRA-7 AMB Questionnaire ZAIRA-7 Date ZAIRA - 7 assessed: 06/02/24 Feeling nervous, anxious, or on edge: 0 = Not at all Not being able to stop or control worryin = Not at all Worrying too much about different things: 0 = Not at all Trouble relaxin = Not at all Being so restless that it is hard to sit still: 0 = Not at all Becoming easily annoyed or irritable: 0 = Not at all Feeling afraid as if something awful might happen: 0 = Not at all Total ZAIRA-7 score (0-4 normal; 5-9 mild; 10-14 moderate; 15-21 severe): 0 Source: Developed by Drs. Gwyn Nicholson, Daylin Sánchez, Ramsey Tilley and colleagues, with an educational avtar from [employer]. ZAIRA-7 Assessment Billing ZAIRA-7 Assessment Tool: ZAIRA-7 Assessment 11623 (Currently followed by ELAINE CARTAGENA) Review of Systems Const Denies chills, Denies fatigue, Denies fever(s), Denies frequent falls and Denies weakness Eyes Details: Currently followed by Dr. Wayne Denies change in vision ENT Denies dizziness Card Denies chest pain, Denies leg edema, Denies lightheadedness, Denies palpitations, Denies dyspnea and Denies dyspnea on exertion Resp Denies cough, Denies dyspnea and Denies dyspnea on exertion GI Denies hematochezia Denies difficulty voiding, Denies dysuria and Denies urinary incontinence Musc Denies abnormal gait, Denies muscle weakness, Denies numbness, Denies radiating pain into limb and Denies tingling Skin/Breast Denies breast pain, Denies breast mass, Denies pruritus and Denies rash Neuro Denies Abnormal speech present, Denies abnormal gait, Denies dizziness, Denies frequent falls, Denies numbness, Denies tingling and Denies weakness Psych Details: Has occasional difficulty sleeping, currently taking trazodone given by her psychiatrist Reports anxiety (Followed byELAINE CARTAGENA) Endo Denies fatigue and Denies palpitations Guy/Lymph Reports no additional complaints Aller/Immun Reports no additional complaints Physical exam (Primary Care) Vital Signs: Last Vital Signs Temp 98.0 F 06/02/24 08:31 Pulse 75 06/02/24 08:31 Resp 16 06/02/24 08:31 BP 132/82 06/02/24 08:31 Pulse Ox 97 06/02/24 08:31 Oxygen Delivery Method Room Air 06/02/24 08:31 BMI result Body Mass Index 27.2 Tobacco/Smoking Status: Tobacco use Status Tobacco use date assessed 06/02/24 06/02/24 08:40 Patient Tobacco Use Status Former Tobacco user 06/02/24 08:32 e-Cigarette/Vaping Use Never Used 06/02/24 08:32 PHQ-9: PHQ-9 Score PHQ-9: Total score 0 06/02/24 09:10 Depression Screening Interpretation: Negative Thrive Assessment: Date of Thrive Assessment Date Thrive assessed 06/02/24 06/02/24 08:40 Currently or been in a relationship where the following occur: No concerns reported Const Other: Alert oriented x3, no acute distress noted, ambulatory normal gait HENMT Head: Yes normocephalic Ears: external ears normal, TM's normal bilaterally and EAC's normal General nose exam: Normal external nose present Face and sinus: Yes face symmetric Mouth: Normal oral and palatal mucosa present and moist mucous membranes Eyes General: appearance normal, both eyes and all related structures Neck Neck: Yes full ROM, Yes no lymphadenopathy and Yes supple Thyroid: Thyroid normal Chest Breast/axilla palpation: normal palpation of the breasts Resp Auscultation: clear to auscultation bilaterally Cardio Other: S1-S2 present regular rate and rhythm, systolic murmur over aortic area GI Inspection: Yes normal to inspection Palpation (GI): Soft to palpation, nontender, no guarding and no masses General: Yes no CVA tenderness Back/Spine/Pelvis Back: no CVA tenderness Skin General skin exam: no rashes or lesions noted Neuro Speech: No Abnormal speech present Extrem General: Yes full ROM, Yes no joint enlargement, Yes no clubbing, cyanosis or edema and Yes normal gait Psych Appearance: grossly normal and well kempt Affect: normal affect Thought process: Normal thought process present Coding Level of Care Code Est Pt Level 4 (73312) Complex EM visit Add On G2211 Diagnoses Osteoporosis, unspecified osteoporosis type, unspecified pathological fracture presence M81.0 Osteoporosis type: unspecified Presence of current pathological fracture: unspecified Acquired hypothyroidism E03.9 Hypothyroidism type: acquired Migraine without aura and without status migrainosus, not intractable G43.009 Intractability: not intractable Migraine type: migraine (< 15 days per month) without aura Status migrainosus presence: without status migrainosus Essential hypertension I10 Hypertension type: essential hypertension Pure hypercholesterolemia E78.00 Hyperlipidemia type: pure hypercholesterolemia Additional Codes ZAIRA-7 Assessment Billing - ZAIRA-7 Assessment Tool: ZAIRA-7 Assessment 34679 ([id number]) PHQ-9 - 16703 - PHQ-9 Billing: Yes ([id number]) Assessment & Plan Assessment & Plan (1) Osteoporosis: Code(s): M81.0 - Age-related osteoporosis without current pathological fracture Category: Medical Qualifiers: Osteoporosis type: unspecified Presence of current pathological fracture: unspecified Qualified Code(s): M81.0 - Age-related osteoporosis without current pathological fracture Plan: Currently followed by Dr. Copeland. Has had 3 Reclast infusions, last bone density scan done a year ago showed osteoporosis unchanged from previous test. Advised to continue with regular weight-bearing exercise, continue taking vitamin-D 3 supplements least 2000 units daily and dietary calcium (2) Hypothyroidism: Code(s): E03.9 - Hypothyroidism, unspecified Category: Medical Qualifiers: Hypothyroidism type: acquired Qualified Code(s): E03.9 - Hypothyroidism, unspecified Plan: Will check TSH , and free T4 level, currently on levothyroxine 50 mcg daily (3) Migraine: Code(s): G43.909 - Migraine, unspecified, not intractable, without status migrainosus Category: Medical Qualifiers: Intractability: not intractable Migraine type: migraine (< 15 days per month) without aura Status migrainosus presence: without status migrainosus Qualified Code(s): G43.009 - Migraine without aura, not intractable, without status migrainosus Plan: Takes sumatriptan as needed, migraine episodes have been infrequent (4) HTN (hypertension): Code(s): I10 - Essential (primary) hypertension Category: Medical Qualifiers: Hypertension type: essential hypertension Qualified Code(s): I10 - Ess ential (primary) hypertension Plan: Blood pressure at goal of less than 130/80. Continue with amlodipine at the same dose. Reinforced importance of following a low sodium diet, getting regular exercise, and lowering stress levels. (5) Hyperlipidemia: Code(s): E78.5 - Hyperlipidemia, unspecified Category: Medical Qualifiers: Hyperlipidemia type: pure hypercholesterolemia Qualified Code(s): E78.00 - Pure hypercholesterolemia, unspecified Plan: Fasting lipid panel ordered Orders: Orders Thyroid Stimulating Hormone 06/02/24 E03.9 - Hypothyroidism, unspecified, E55.9 - Vitamin D deficiency, unspecified, E78.00 - Pure hypercholesterolemia, unspecified, G43.909 - Migraine, unspecified, not intractable, without status migrainosus, I10 - Essential (primary) hypertension, M81.0 - Age-related osteoporosis without current pathological fracture Free T4 (Free Thyroxine) 06/02/24 E03.9 - Hypothyroidism, unspecified, E55.9 - Vitamin D deficiency, unspecified, E78.00 - Pure hypercholesterolemia, unspecified, G43.909 - Migraine, unspecified, not intractable, without status migrainosus, I10 - Essential (primary) hypertension, M81.0 - Age-related osteoporosis without current pathological fracture Lipid Panel 06/02/24 E03.9 - Hypothyroidism, unspecified, E55.9 - Vitamin D deficiency, unspecified, E78.00 - Pure hypercholesterolemia, unspecified, G43.909 - Migraine, unspecified, not intractable, without status migrainosus, I10 - Essential (primary) hypertension, M81.0 - Age-related osteoporosis without current pathological fracture Vitamin D 25-OH Total 06/02/24 E03.9 - Hypothyroidism, unspecified, E55.9 - Vitamin D deficiency, unspecified, E78.00 - Pure hypercholesterolemia, unspe cified, G43.909 - Migraine, unspecified, not intractable, without status migrainosus, I10 - Essential (primary) hypertension, M81.0 - Age-related osteoporosis without current pathological fracture Basic Metabolic Panel Fasting 06/02/24 E03.9 - Hypothyroidism, unspecified, E55.9 - Vitamin D deficiency, unspecified, E78.00 - Pure hypercholesterolemia, unspecified, G43.909 - Migraine, unspecified, not intractable, without status migrainosus, I10 - Essential (primary) hypertension, M81.0 - Age-related osteoporosis without current pathological fracture Aspartate Amino Transferase 06/02/24 E03.9 - Hypothyroidism, unspecified, E55.9 - Vitamin D deficiency, unspecified, E78.00 - Pure hypercholesterolemia, unspecified, G43.909 - Migraine, unspecified, not intractable, without status migrainosus, I10 - Essential (primary) hypertension, M81.0 - Age-related osteoporosis without current pathological fracture Alanine Aminotransferase 06/02/24 E03.9 - Hypothyroidism, unspecified, E55.9 - Vitamin D deficiency, unspecified, E78.00 - Pure hypercholesterolemia, unspecified, G43.909 - Migraine, unspecified, not intractable, without status migrainosus, I10 - Essential (primary) hypertension, M81.0 - Age-related osteoporosis without current pathological fracture Medications: Refilled atorvastatin 40 mg PO BEDTIME 90 days 90 tabs 4RF E78.00 - Pure hypercholesterolemia, unspecified amlodipine 5 mg PO DAILY 90 tabs 4RF I10 - Essential (primary) hypertension levothyroxine 50 mcg PO QAM 90 caps 4RF E03.9 - Hypothyroidism, unspecified
== END 2024-06-02 09:07 | disposition home or self-care (01) ==
LOC: HO.HMCC 07:55
PROVIDERS: PCP Internal Medicine; Visit Provider Internal Medicine
DX: M81.0 Age-related osteoporosis without current pathological fracture (principal); E03.9 Hypothyroidism, unspecified; G43.009 Migraine without aura, not intractable, without status migrainosus; I10 Essential (primary) hypertension; E78.00 Pure hypercholesterolemia, unspecified

== ENCOUNTER → 2024-06-02 07:54 | Outpatient (BNVA) | payer MEDICARE, SELFPAY | PROVIDERS: PCP Internal Medicine; Visit Provider Internal Medicine | DX: E78.00 Pure hypercholesterolemia, unspecified (principal); E03.9 Hypothyroidism, unspecified; I10 Essential (primary) hypertension; M81.0 Age-related osteoporosis without current pathological fracture; G43.009 Migraine without aura, not intractable, without status migrainosus; E55.9 Vitamin D deficiency, unspecified; G43.909 Migraine, unspecified, not intractable, without status migrainosus | CPT/HCPCS: 96127; 99212 ==

== ENCOUNTER 2024-11-03 08:37 | Outpatient (AMB) | payer MEDICARE, SELFPAY ==
--- NOTE | 2024-11-03 08:42 | A.OFFVIS_ITS ---
Vital Signs 11/03/24 08:45 Height 5 ft 1.54 in Weight 147 lb 4.301 oz BMI 27.3 BP 112/68 Blood Pressure Location Lt brachial Position Sitting Pulse 74 Pulse Source Pulse Oximeter Pulse Oximetry (%) 96 Oxygen Delivery Method Room Air Intake Visit Reasons: Osteoporosis Intake Note: Patient present today for Osteoporosis follow up. Condenser Setter Required: No Accompanied by: Self / Same As Patient Allergies No Known Allergies Allergy (Verified 11/03/24 08:46) Medication List - Last Reconciled 11/03/24 by Gwyn Copeland MD amlodipine 5 mg PO DAILY aspirin (Adult Low Dose Aspirin) 81 mg PO DAILY atorvastatin 40 mg PO BEDTIME blood pressure monitor As directed levothyroxine 50 mcg PO QAM sumatriptan succinate 50 mg PO DAILY PRN trazodone 200 mg PO BEDTIME HPI Comments Details: 84 YO Female with PMHx Osteoporosis, HTN, HLD, Hypothyroidism who is seen in F/U for Osteoporosis. First diagnosed in January of 2018 when she had her first screening DXA. This revealed Osteoporosis of both the spine in the hip and she was referred to Endocrinology for this. She was last seen in early Mar 2018 at which time we sent her for full lab evaluation. She was provided with information regarding bisphosphonates and denosumab. Denosumab was ordered, but cost was prohibitive for her. She then agreed to try Reclast. She had three Reclast infusions November 2018, 01/30/2020, and 03/29/2021. She tolerated these well. Has 2 servings of dietary calcium per day in the form of milk, yogurt or cheese. Does take a Calcium supplement 500 mg PO daily. Takes Vitamin D 1000 IU daily. Denies ever using PPI, anticoagulant, antiepileptic. Does have cortisone injection q3 months into bursa. Does weight bearing exercise 4-5 days per week in the form of walking 3-4 miles at a time. Fracture history: Had fragility fracture of the radius in 2009. Height loss: Denies height loss. ARMATURE REWINDER history: , did not breast feed. Menarche at age 7, had EDDI/BSOO due to Endometriosis at the age of 25. Did use HRT. History of Kidney stones: Denies personal or family history of kidney stones. No family history of Osteoporosis or hip fracture. UTD on dental cleanings and sees dentist every 6 months. No planned upcoming dental work or extractions. DXA dated: 03/07/2022 FINDINGS: AP SPINE L1-L2 (excluding L3 and L4): The data of L1-L4 has been changed to exclude the L3 and L4 vertebral bodies, because degenerative changes at these levels may cause overestimation of lumbar spine density. Current: BMD 0.842 g/cm2, Z-score -0.6, T-score -2.7, osteoporosis, 2.7% increase from previous, 6.4% increase from baseline (<5% change is not significant). Prior: BMD 0.820 g/cm2. Baseline: BMD 0.791 g/cm2. LEFT FEMUR, NECK: Current: BMD 0.745 g/cm2, Z-score 0.3, T-score -2.1, osteopenia. Prior: BMD 0.735 g/cm2. Baseline: BMD 0.715 g/cm2. LEFT FEMUR, TOTAL: Current: BMD 0.817 g/cm2, Z-score 0.8, T-score -1.5, osteopenia, 0.4% increase from previous, 3.8% increase from baseline (<5% change is not significant). Prior: BMD 0.814 g/cm2. Baseline: BMD 0.787 g/cm2. Labs: Laboratory Tests 03/16/22 03/16/22 09:10 09:10 Sodium 139 Potassium 3.9 Creatinine 0.77 Estimated GFR > 60 25-OH Vitamin D Total 46.6 TSH 2.08 Free T4 1.29 PTH Intact 36 Calcium (PTH Intact) 9.3 No fx since last visit . recent DEXA 04/22 showed stability in the bone density with continued osteoporosis. She has received 3 doses of Reclast in the past. Urine NTX from 05/20 is Suppressed The patient is an 84-year-old female presenting with osteoporosis management and bone density evaluation. The patient has a history of osteoporosis, for which she has received three doses of Reclast in the past. Her bone density has remained stable, with the last assessment conducted in March. There have been no fractures since the last visit, and she continues to take calcium and vitamin D supplements. The patient was advised to perform a second morning urine NTX test to evaluate the effectiveness of Reclast therapy. This test will help determine if there is ongoing bone loss, which would necessitate a change in treatment strategy. In the past, the option of Prolia injections was discussed, but cost was a prohibitive factor. Prolia is known to increase bone density slightly and is administered biannually. The patient is considered at risk for fractures due to her age, and maintaining bone density is crucial. The patient is active and engages in regular physical activity, which is beneficial for bone health. She resides in [place], where she has access to a Better Bones and Balance class at the [facility], which could further aid in maintaining her bone health. - Calcium and Vitamin D: For osteoporosis management. The patient is very active and engages in regular physical activities, which include light weight-bearing exercises. She has been advised to participate in the Better Bones and Balance class at the [facility] to further support her bone health. 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 Mother No problems noted. Brother Heart disease Brother Heart attack Social History Household Members: Spouse Housing: House Are you a primary career representative to a significant other at home: No Do you presently have visiting nurse or other home services: No Alcohol intake: current Alcohol intake frequency: holidays/special occasions only Alcohol type: wine Comment: patient refuses high risk safety precautions Patient Tobacco Use Status: Former Tobacco user Years Smoked: 10 +/- e-Cigarette/Vaping Use: Never Used service: No Current occupational status: retired Cognitive needs: No Hearing needs: No Vision needs: Yes Physical Exam Vital Signs: Last Vital Signs Pulse 74 11/03/24 08:45 BP 112/68 11/03/24 08:45 Pulse Ox 96 11/03/24 08:45 Oxygen Delivery Method Room Air 11/03/24 08:45 BMI result Body Mass Index 27.3 Assessment & Plan Assessment & Plan (1) Osteoporosis: Code(s): M81.0 - Age-related osteoporosis without current pathological fracture Category: Medical Qualifiers: Osteoporosis type: unspecified Presence of current pathological fracture: unspecified Qualified Code(s): M81.0 - Age-related osteoporosis without current pathological fracture Plan: This is a 83-year-old white female with a history of osteoporosis with secondary workup negative received 3 doses of Reclast. She is currently on calcium and vitamin-D supplementation. Secondary workup is negative. Repeat PTH was normal. urine NTX is pending. Recent DEXA showed stability in the bone density with continued osteoporosis Plan is to check urinary NTX when it is available. Will follow urine NTX and if elevated will consider either giving a course of Prolia or another dose of Reclast 1. Osteoporosis The patient has received three doses of Reclast, and her bone density remains stable. A second morning urine NTXtest is planned to assess the effectiveness of Reclast therapy. If the test indicates increased bone loss, Prolia injections may be reconsidered, although cost is a concern. The patient is encouraged to continue calcium and vitamin D supplementation and engage in weight-bearing exercises. Follow-up is scheduled in six months. During the visit, we discussed the patient's osteoporosis management, including the stability of her bone density and the need for a second morning urine test to evaluate Reclast's effectiveness. We reviewed the option of Prolia injections, noting the cost as a limiting factor, and emphasized the importance of continuing calcium and vitamin D supplementation. I recommended engaging in weight-bearing exercises and suggested the Better Bones and Balance class at the [facility]. - Continue taking calcium and vitamin D supplements daily. - Perform the second morning urine test as instructed to assess Reclast effectiveness. - Engage in regular weight-bearing exercises to support bone health. - Consider enrolling in the Better Bones and Balance class at the [facility]. - Schedule a follow-up appointment in six months. Patient was informed and verbally consented to the use of an ambient scribe for clinic note documentation during this visit. Orders: Orders Collagen Crosslinks NTX 11/01/24 M81.0 - Age-related osteoporosis without current pathological fracture Coding Level of Care Code Est Pt Level 3 (55928) Diagnoses Osteoporosis, unspecified osteoporosis type, unspecified pathological fracture presence M81.0 Osteoporosis type: unspecified Presence of current pathological fracture: unspecified
[2024-11-03 08:45] VITALS: BP 112/68; PULSE 74; O2SAT 96; BMI 27.3
--- OUTSIDE RECORDS SUMMARY | 2024-11-03 09:37 | XMS_ITS | Patient Health Record ---
Author Organization [facility] Address [address] [place] [address] Care Team Providers Care Playground Equipment Erector Name Role Phone Mj VÁZQUEZ, Veronica Ugarte Primary Care Provider Un available Ursula Forrest Unavailable [phone] Allergies No Known Allergies Reason For Referral No Information Medications Medication SIG (Take, Route, Frequency, Duration) Notes Start Date End Date Status SUMAtriptan Succinate Not-Taking Ibuprofen 800 MG 1 tablet every Orall y Three times a day; Duration: 10 days 01/21/2018 Not-Taking traZODone HCl Active Levothyroxine Sodium Active Estradiol 0.5 MG 1 tablet for 3 weeks , off 1 week then repeat Orally Once a day; Duration: 30 day(s) Not-Taking Ciprofloxacin HCl No t-Taking Ibuprofen 800 MG 1 tablet with food o r milk as needed Orally Three times a day; Duration: 14 days 07/09/2020 Not-Taking Tylenol Extra Strength Active Prolia Active amLODIPine Besylate 5 MG 1 tablet Orally Once a day; Duration: 30 day(s) Active Simvastatin 5 MG 1 tablet every eveni ng Orally Once a day Active Walking Boot/Pneumatic As directed Wear Daily; Duration: Until further notice 11/27/2017 Not-Taking Percocet 5-325 MG 1-2 tablet as needed Orally every 4-6 hrs; Duration: as needed 11/27/2017 Not-Taking Physical Therapy . . . 2-3x/week; Duration: 3-4 weeks 01/11/2018 Not-Taking Keflex 500 MG 1 capsule Orally solis ry 12 hrs; Duration: 7 days 12/25/2017 Not-Taking Ibuprofen 800 MG 1 tablet with food o r milk as needed Orally Three times a day; Duration: 30 days 11/27/2017 Not-Taking Ondansetron Not-Taki ng Gabapentin 300 MG 1 capsule Orally twi ce a day; Duration: 30 day(s) 07/09/2020 Not-Taking metroNIDAZOLE Not-Ta rashad Neurontin 300 MG 1 capsule Orally Thr ee times a day; Duration: 90 days Not-Taking Feldene 20 MG 1 capsule with food Orally Once a day; Duration: 30 day(s) 11/02/2017 Not-Taking Acetaminophen-Codeine #3 Not-Taking Immunizations Vaccine Route Administration Date Status Comme nts Influenza Unknown 12/18/2017 Administered COVID-19 Moderna Vaccine Unknown 03/24/2020 Administered second dose on 04/22/2020 Social History Tobacco Use: Social History Observation [...] Status Risk Notes Problem Acquired hallux valgus (94453747) Hallux valgus (acquired), left foot (M20.12) Active confirmed Problem Acquired hallux valgus (83787473) Hallux valgus (acquired), right foot (M20.11) Active confirmed Problem Contracture of joint of left foot (disorder) (990264048169929) Contracture , 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) Active confirmed Problem Acquired hammer toe of right foot (4309258141520800 ) Hammer toe of right foot (M20.41) Active confirmed Problem Acquired hammer toe of left foot (2480465387622892 ) Hammer toe of left foot (M20.42) Active [...] [facility] [address] [facility] [place] [id number] Fani Faust Self - patient is the insured Medical (General) History Medical History History ICD Code Arthritis broken bones mumps Depression Diverticulosis thyroid Surgical History Surgery Date(Month/Year) disc surgery 1999 [facility], 2 nd MPJ Caps/Ten R, HT repair 2nd, 3rd, 4th R SE: [place] Asnis 12/13/2017 Hospitalization History Reason Date(Month/Year) [facility] [place]- Divert[place]itis 05/2017 [facility] [place]- fall - bleeding outside of brain
== END 2024-11-03 09:11 | disposition home or self-care (01) ==
LOC: HO.ENCR 08:37
PROVIDERS: PCP Internal Medicine; Visit Provider Internal Medicine Endocrinology, Diabetes & Metabolism
DX: M81.0 Age-related osteoporosis without current pathological fracture (principal)
CPT/HCPCS: 99213

== ENCOUNTER → 2024-11-03 08:37 | Outpatient (BNVA) | payer MEDICARE, SELFPAY | PROVIDERS: PCP Internal Medicine; Visit Provider Internal Medicine Endocrinology, Diabetes & Metabolism | DX: M81.0 Age-related osteoporosis without current pathological fracture (principal) | CPT/HCPCS: 99212 ==

== ENCOUNTER 2024-12-10 08:06 | Outpatient (AMB) | payer MEDICARE, SELFPAY ==
--- NOTE | 2024-12-10 08:18 | MHC.PC.OV ---
Vital Signs 12/10/24 08:21 Height 5 ft 1 in Weight 150 lb BMI 28.3 BP 128/80 Blood Pressure Location Rt brachial Position Sitting Respiration 16 Pulse 86 Pulse Source Pulse Oximeter Temp 97.9 F Temp Source Oral Pulse Oximetry (%) 96 Oxygen Delivery Method Room Air Intake Visit Reasons: Annual PE Intake Note: Pt is here today for her PE: last bone density scan 04/22/24 Allergies No Known Allergies Allergy (Verified 12/10/24 08:52) Medication List - Last Reconciled 12/10/24 by Veronica Barker MD amlodipine 5 mg PO DAILY aspirin (Adult Low Dose Aspirin) 81 mg PO DAILY atorvastatin 40 mg PO BEDTIME blood pressure monitor As directed levothyroxine 50 mcg PO QAM sumatriptan succinate 50 mg PO DAILY PRN trazodone 200 mg PO BEDTIME Tobacco use date assessed: 12/10/24 Fall risk assessment: No Falls in past year Last assessed Fall Risk: 12/10/24 Dental Screening Dental Screen Date: 12/10/24 Did you have a dental visit in the last 12 months?: No Did you have a dental problem in the last 6 months where you did not have access to dental care?: No Was dental information given to patient?: Patient has dentist HPI Annual PE HPI Details 84 year-old lady with hyperlipidemia, hypothyroidism, hypertension, here today for her follow-up. She has been taking her medications as directed, compliant with diet. She has been feeling well with no complaints at present time. She is currently being followed by Dr. Copeland for treatment of osteoporosis, has had 3 doses of Reclast and is currently on calcium and vitamin-D supplementation, she has an appointment to for follow-up with him again in April 2025. She sees a therapist and psych prescriber in [place], Dr. Worley for her anxiety disorder, currently takes trazodone 200 mg at bedtime. Up-to-date with her flu vaccine and COVID vaccine, has had Prevnar 13 and pneumococcal vaccine 23 had RSV had 1 dose of shingles vaccine, up-to-date with Tdap. [facility] Medical History (Updated 12/10/24 @ 09:06 by Veronica Barker MD) Generalized anxiety disorder Vitamin D deficiency Hollenhorst plaque, left eye Acquired hammer toe deformity of lesser toe of left foot Hallux valgus (acquired), left foot Subdural hematoma, post-traumatic HTN (hypertension) Migraine Hypothyroidism Osteoporosis Surgical History Hx of foot surgery Hx of bilateral cataract extraction Hx of hammer toe correction History of bunionectomy Hx of cholecystectomy History of surgery on wrist Hx of flexible sigmoidoscopy History of tonsillectomy and adenoidectomy History of total abdominal hysterectomy and bilateral salpingo-oophorectomy History of back surgery Family History Father No problems noted. Mother No problems noted. Brother Heart disease Brother Heart attack Social History Household Members: Spouse Housing: House Are you a primary care center manager to a significant other at home: No Do you presently have visiting nurse or other home services: No Alcohol intake: current Alcohol intake frequency: holidays/special occasions only Alcohol type: wine Comment: patient refuses high risk safety precautions Patient Tobacco Use Status: Former Tobacco user Years Smoked: 10 +/- e-Cigarette/Vaping Use: Never Used service: No Current occupational status: retired Cognitive needs: No Hearing needs: No Vision needs: Yes Questionnaire PHQ-9 Over the last 2 weeks, how often have you been bothered by any of the following problems? 1. Little interest or pleasure in doing things: not at all 2. Feeling down, depressed, or hopeless: not at all 3. Trouble falling or staying asleep, or sleeping too much: not at all 4. Feeling tired or having little energy: not at all 5. Poor appetite or overeating: not at all 6. Feeling bad about yourself - or that you are a failure or have let yourself or your family down: not at all 7. Trouble concentrating on things, such as reading the newspaper or watching television: not at all 8. Moving or speaking so slowly that other people could have noticed. Or the opposite - being so fidgety or restless that you have been moving around a lot more than usual: not at all 9. Thoughts that you would be better off or of hurting yourself in some way: not at all Total score: 0 Depression Screening Interpretation: Negative Depression Screening Done: Yes 40612 - PHQ-9 Billing: Yes Source: Developed by Drs. Gwyn Nicholson, Ramsey Tate and colleagues, with an educational avtar from [employer]. Thrive Questionnaire Date Thrive assessed: 06/02/24 I am a: Patient What is your living situation today?: I have a steady place to live Within the past 12 months, did the food you bought not last and you didn't have the money to get more?: Never true Within the past 12 months, did you worry whether your food would run out before you got money to buy more?: Never true Do you have trouble paying for medicines?: No Do you have trouble getting transportation to medical appointments?: No Do you have trouble paying your heating and electricity bill?: No Do you have trouble taking care of your child, family member or friend?: No Do you have trouble with day-to-day activities such as bathing, preparing meals, shopping, managing finances, etc.?: No Are you currently unemployed and looking for a job?: No Are you interested in more education?: No Please select the resources that you would like help with: None Currently or been in a relationship where the following occur: No concerns reported THRIVE Score: 0 AUDIT C Alcohol Use Questionnaire (AUDIT-C) 1. How often do you have a drink containing alcohol?: Never Total Score: 0 ZAIRA-7 AMB Questionnaire ZAIRA-7 Date ZAIRA - 7 assessed: 06/02/24 Feeling nervous, anxious, or on edge: 0 = Not at all Not being able to stop or control worryin = Not at all Worrying too much about different things: 0 = Not at all Trouble relaxin = Not at all Being so restless that it is hard to sit still: 0 = Not at all Becoming easily annoyed or irritable: 0 = Not at all Feeling afraid as if something awful might happen: 0 = Not at all Total ZAIRA-7 score (0-4 normal; 5-9 mild; 10-14 moderate; 15-21 severe): 0 Source: Developed by Daylin Finley Kurt Kroenke and colleagues, with an educational avtar from [employer]. ZAIRA-7 Assessment Billing ZAIRA-7 Assessment Tool: ZAIRA-7 Assessment 96744 (sees Dr Worley in [facility][1] anxiety disorder) Review of Systems Const Denies chills, Denies fatigue, Denies fever(s), Denies frequent falls and Denies weakness Eyes Details: Currently followed by Dr. Wayne Denies change in vision ENT Denies dizziness Card Denies chest pain, Denies leg edema, Denies lightheadedness, Denies palpitations, Denies dyspnea and Denies dyspnea on exertion Resp Denies cough, Denies dyspnea and Denies dyspnea on exertion GI Denies hematochezia Denies difficulty voiding, Denies dysuria and Denies urinary incontinence Musc Denies abnormal gait, Denies muscle weakness, Denies numbness, Denies radiating pain into limb and Denies tingling Skin/Breast Denies breast pain, Denies breast mass, Denies pruritus and Denies rash Neuro Denies Abnormal speech present, Denies abnormal gait, Denies dizziness, Denies frequent falls, Denies numbness, Denies tingling and Denies weakness Psych Details: Has occasional difficulty sleeping, currently taking trazodone given by her psychiatrist Reports anxiety (Followed byELAINE WORLEY) Endo Denies fatigue and Denies palpitations Guy/Lymph Reports no additional complaints Aller/Immun Reports no additional complaints Physical exam (Primary Care) Vital Signs: Last Vital Signs Temp 97.9 F 12/10/24 08:21 Pulse 86 12/10/24 08:21 Resp 16 12/10/24 08:21 BP 128/80 12/10/24 08:21 Pulse Ox 96 12/10/24 08:21 Oxygen Delivery Method Room Air 12/10/24 08:21 BMI result Body Mass Index 28.3 Tobacco/Smoking Status: Tobacco use Status Tobacco use date assessed 12/10/24 12/10/24 08:27 Patient Tobacco Use Status Former Tobacco user 12/10/24 08:18 e-Cigarette/Vaping Use Never Used 12/10/24 08:18 PHQ-9: PHQ-9 Score PHQ-9: Total score 0 12/10/24 08:30 Depression Screening Interpretation: Negative Thrive Assessment: Date of Thrive Assessment Date Thrive assessed 06/02/24 12/10/24 08:18 Currently or been in a relationship where the following occur: No concerns reported Const Other: Alert oriented x3, no acute distress noted, ambulatory normal gait HENMT Head: Yes normocephalic Ears: external ears normal, TM's normal bilaterally and EAC's normal General nose exam: Normal external nose present Face and sinus: Yes face symmetric Mouth: Normal oral and palatal mucosa present and moist mucous membranes Eyes General: appearance normal, both eyes and all related structures Neck Neck: Yes full ROM, Yes no lymphadenopathy and Yes supple Thyroid: Thyroid normal Resp Auscultation: clear to auscultation bilaterally Cardio Other: S1-S2 present regular rate and rhythm, systolic murmur over aortic area GI Inspection: Yes normal to inspection Palpation (GI): Soft to palpation, nontender, no guarding and no masses General: Yes no CVA tenderness Back/Spine/Pelvis Back: no CVA tenderness Skin General skin exam: no rashes or lesions noted Neuro Speech: No Abnormal speech present Extrem General: Yes full ROM, Yes no joint enlargement, Yes no clubbing, cyanosis or edema and Yes normal gait Psych Appearance: grossly normal and well kempt Affect: normal affect Thought process: Normal thought process present Coding Level of Care Code Est Pt Level 4 (76441) Complex EM visit Add On G2211 Diagnoses Essential hypertension I10 Hypertension type: essential hypertension Pure hypercholesterolemia E78.00 Hyperlipidemia type: pure hypercholesterolemia Acquired hypothyroidism E03.9 Hypothyroidism type: acquired Osteoporosis, unspecified osteoporosis type, unspecified pathological fracture presence M81.0 Osteoporosis type: unspecified Presence of current pathological fracture: unspecified Migraine without aura and without status migrainosus, not intractable G43.009 Migraine type: migraine (< 15 days per month) without aura Status migrainosus presence: without status migrainosus Intractability: not intractable Insomnia G47.00 Generalized anxiety disorder F41.1 Additional Codes PHQ-9 - 87452 - PHQ-9 Billing: Yes ([id number]) ZAIRA-7 Assessment Billing - ZAIRA-7 Assessment Tool: ZAIRA-7 Assessment 77570 ([id number]) Assessment & Plan Assessment & Plan (1) HTN (hypertension): Code(s): I10 - Essential (primary) hypertension Category: Medical Qualifiers: Hypertension type: essential hypertension Qualified Code(s): I10 - Essential (primary) hypertension Plan: Blood pressure at goal of less than 130/80. Continue with amlodipine 5 mg daily Reinforced importance of following a low sodium diet, getting regular exercise, and lowering stress levels. (2) Hyperlipidemia: Code(s): E78.5 - Hyperlipidemia, unspecified Category: Medical Qualifiers: Hyperlipidemia type: pure hypercholesterolemia Qualified Code(s): E78.00 - Pure hypercholesterolemia, unspecified Plan: fasting lipid profile to be done today . Continue atorvastatin 40 mg at bedtime , in addition to adherence to low-cholesterol diet and regular exercise, at least 30 minutes 3 to 4 times a week. Advised patient to make healthy food choices, eat more fruits, vegetables, whole grains, wild caught fish and low-fat dairy. Limit amount of meat and fried or fatty food products, as well as processed foods and fast foods. Follow-up scheduled with repeat fasting lipid panel in months. (3) Hypothyroidism: Code(s): E03.9 - Hypothyroidism, unspecified Category: Medical Qualifiers: Hypothyroidism type: acquired Qualified Code(s): E03.9 - Hypothyroidism, unspecified Plan: Will check thyroid levels, labs ordered. Continued on levothyroxine 50 mcg daily in a.m.. (4) Osteoporosis: Code(s): M81.0 - Age-related osteoporosis without current pathological fracture Category: Medical Qualifiers: Osteoporosis type: unspecified Presence of current pathological fracture: unspecified Qualified Code(s): M81.0 - Age-related osteoporosis without current pathological fracture Plan: Sees Dr. Copeland, previously was on Reclast, continue with vitamin-D 3 supplements, advised to do during the balance and osteoporosis prevention exercises at the senior center in [place]. (5) Migraine: Code(s): G43.909 - Migraine, unspecified, not intractable, without status migrainosus Category: Medical Qualifiers: Migraine type: migraine (< 15 days per month) without aura Status migrainosus presence: without status migrainosus Intractability: not intractable Qualified Code(s): G43.009 - Migraine without aura, not intractable, without status migrainosus Plan: Takes sumatriptan as needed (6) Insomnia: Code(s): G47.00 - Insomnia, unspecified Category: Medical Plan: Takes trazodone 200 mg at bedtime prescribed by Dr. Worley (7) Generalized anxiety disorder: Code(s): F41.1 - Generalized anxiety disorder Category: Medical Plan: Sees Dr. Worley, currently on trazodone
[2024-12-10 08:21] VITALS: BP 128/80; PULSE 86; RESP 16; TEMP 36.6; O2SAT 96; BMI 28.3
--- OUTSIDE RECORDS SUMMARY | 2024-12-10 08:21 | XMS_ITS | Patient Health Record ---
Author Organization [facility] Address [address] [place] [address] Care Team Providers Care Leadership Development Manager Name Role Phone Mj VÁZQUEZ, Veronica Ugarte Primary Care Provider Un available Ursula Forrest Unavailable [phone] Allergies No Known Allergies Reason For Referral [...] Status Risk Notes Problem Acquired hallux valgus (35348839) Hallux valgus (acquired), left foot (M20.12) Active confirmed Problem Acquired hallux valgus (31464089) Hallux valgus (acquired), right foot (M20.11) Active confirmed Problem Contracture of joint of left foot (disorder) (527670352984728) Contracture , 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) Active confirmed Problem Acquired hammer toe of right foot (5942411146223744 ) Hammer toe of right foot (M20.41) Active confirmed Problem Acquired hammer toe of left foot (0496076273500847 ) Hammer toe of left foot (M20.42) [...] Insured Coverage Start Date Coverage End Date [facility] [address] [facility] [place] [id number] Fani Faust Self - patient is the insured Medical (General) History Medical History History ICD Code Arthritis broken bones mumps Depression Diverticulosis thyroid Surgical History Surgery Date(Month/Year) disc surgery 1999 [facility] [place], 2 nd MPJ Caps/Ten R, HT repair 2nd, 3rd, 4th R SE: [place] 12/13/2017 Hospitalization History Reason Date(Month/Year) [facility] [place] 05/2017 [facility] [place] - bleeding outside of brain
== END 2024-12-10 09:05 | disposition home or self-care (01) ==
LOC: HO.HMCC 08:07
PROVIDERS: PCP Internal Medicine; Visit Provider Internal Medicine
DX: I10 Essential (primary) hypertension (principal); E78.00 Pure hypercholesterolemia, unspecified; E03.9 Hypothyroidism, unspecified; M81.0 Age-related osteoporosis without current pathological fracture; G43.009 Migraine without aura, not intractable, without status migrainosus; G47.00 Insomnia, unspecified; F41.1 Generalized anxiety disorder

== ENCOUNTER 2024-12-10 08:06 | Outpatient (REF) | payer MEDICARE, SELFPAY ==
[2024-12-10 11:17] LABS: Alanine Aminotransferase 27 U/L (0-31); Anion Gap 12 (12-20); Aspartate Amino Transferase 24 U/L (5-31); Blood Urea Nitrogen 13 mg/dL (9-16); Calcium 9.0 mg/dL (8.4-10.2); Carbon Dioxide 27 mmol/L (22-29); Chloride 107 mmol/L (96-108); Cholesterol 159 mg/dL (<200); Estimated Glomerular Filt Rate > 60; HDL Cholesterol 70 mg/dL (>40); Potassium 3.7 mmol/L (3.3-5.1); Sodium 142 mmol/L (135-145); Triglycerides 129 mg/dL (<150)
[2024-12-10 11:21] LABS: Free T4 (Free Thyroxine) 1.04 ng/dL (0.71-1.85); Thyroid Stimulating Hormone 1.72 uIU/mL (0.32-4.0)
[2024-12-15 13:19] LABS: NTXCreaRU 19 mg/dL (20-275)
== END 2024-12-10 08:07 | disposition home or self-care (01) ==
LOC: HO.HMGCLDS 08:06
PROVIDERS: Absent Provider Internal Medicine Endocrinology, Diabetes & Metabolism; PCP Internal Medicine; Visit Provider Internal Medicine
DX: M81.0 Age-related osteoporosis without current pathological fracture (principal); E55.9 Vitamin D deficiency, unspecified; E78.00 Pure hypercholesterolemia, unspecified; I10 Essential (primary) hypertension; G43.909 Migraine, unspecified, not intractable, without status migrainosus; G47.00 Insomnia, unspecified; F41.1 Generalized anxiety disorder; E03.9 Hypothyroidism, unspecified; Z79.82 Long term (current) use of aspirin; Z79.890 Hormone replacement therapy; Z79.899 Other long term (current) drug therapy
CPT/HCPCS: 36415; 80048; 80061; 82306; 82523; 84439; 84443; 84450; 84460; 96127; 99212

== ENCOUNTER 2025-02-16 09:15 | Outpatient (AMB) | payer MEDICARE, SELFPAY ==
--- NOTE | 2025-02-16 09:26 | A.OFFVIS_ITS ---
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 The patient denies any changes to her health, hospitalizations, ER visits, or concerning symptoms in the last year. She lives with her and remains active, frequently using the stairs in her home without difficulty. She reports being adherent to her medications, which include aspirin, atorvastatin, and amlodipine. 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 An echocardiogram performed on 02/09/2022 showed an ejection fraction of 50-55%, mild calcification of the aortic valve, mild mitral annular calcification, and no regional wall motion abnormalities. A carotid ultrasound from 02/09/2022 demonstrated 0-49% stenosis in both the right and left internal carotid arteries. Laboratory studies from 12/10/2024 showed an LDL of 64, AST of 24, ALT of 27, and creatinine of 0.73. An EKG performed today showed a sinus rhythm with sinus arrhythmia, a rate of 74, and a QTC of 441 milliseconds. 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 Mother No problems noted. Brother Heart disease Brother Heart attack Social History Household Members: Spouse Housing: House Are you a primary career technical education teacher to a significant other at home: No Do you presently have visiting nurse or other home services: No Alcohol intake: current Alcohol intake frequency: holidays/special occasions only Alcohol type: wine Comment: patient refuses high risk safety precautions Patient Tobacco Use Status: Former Tobacco user Years Smoked: 10 +/- e-Cigarette/Vaping Use: Never Used service: No Current occupational status: retired Cognitive needs: No Hearing needs: No Vision needs: Yes Review of Systems Const All systems reviewed & are unremarkable except as noted in HPI and below Card Denies no additional complaints, Denies chest pain, Denies chest pain at rest, Denies chest pain with activity, Denies syncope, Denies rapid heart rate, Denies leg edema, Denies dyspnea, Denies dyspnea on exertion and Denies orthopnea Resp Denies dyspnea and Denies dyspnea on exertion GI Denies no additional complaints Denies no additional complaints Musc Denies no additional complaints Neuro Denies syncope Physical Exam Vital Signs: Last Vital Signs Pulse 74 02/16/25 09:27 BP 120/64 02/16/25 09:27 BMI result Body Mass Index 28.0 Const General: cooperative, healthy appearing, comfortable and no acute distress Orientation/consciousness: patient oriented x3 Neck Neck: Yes normal visual inspection Resp Effort & Inspection: normal respiratory effort Auscultation: clear to auscultation bilaterally, no rales, no rhonchi and no wheezes Cardio Jugular venous distension: no JVD Rate: regular rate Rhythm: regular rhythm Heart sounds: S2 normal heart sound present, no gallops, Murmur heart sound present (2/6 systolic right sternal border) and no rubs Peripheral pulses: Peripheral pulses 2+ throughout Neuro General: patient oriented x3 Extrem General: Yes normal to inspection, No no pedal edema and No calf tenderness Psych Appearance: grossly normal Mental Status: mental status grossly normal Speech and movement: Normal speech and movement present Office Procedures EKG Details: Today, read by me, sinus rhythm with marked sinus arrythmia, rate 74, Qtc 441ms [id number], Complete Assessment & Plan Assessment & Plan (1) Aortic valve calcification: Code(s): I35.9 - Nonrheumatic aortic valve disorder, unspecified Category: Medical Plan: Last echo 01/2022 with mild aortic valve calcification. Murmur noted on exam. No cardinal signs of severe . Will update echocardiogram to evaluate for aortic stenosis. Plan to call her with results once available. (2) Heart murmur: Code(s): R01.1 - Cardiac murmur, unspecified Category: Medical Plan: As above (3) HTN (hypertension): Code(s): I10 - Essential (primary) hypertension Category: Medical Qualifiers: Hypertension type: essential hypertension Qualified Code(s): I10 - Essential (primary) hypertension Plan: Blood pressure goal less than 130/80. Well controlled at this time. Continue amlodipine. (4) Hyperlipidemia: Code(s): E78.5 - Hyperlipidemia, unspecified Category: Medical Qualifiers: Hyperlipidemia type: pure hypercholesterolemia Qualified Code(s): E78.00 - Pure hypercholesterolemia, unspecified Plan: [place] LDL goal less than 100. Labs 12/10/2024 showed LDL 64, normal LFT. Continue atorvastatin. Plan I informed the patient that her EKG and lab results were good. I discussed the finding of a heart murmur on her physical exam, which correlates with the known mild aortic valve calcification seen on her 2021 echocardiogram. I explained that because it has been a few years since the last imaging, I recommended a new echocardiogram simply for surveillance to document the current status of the valve. I reassured her that she has no concerning symptoms and that this is a precautionary measure, not an urgent matter. We reviewed the logistics of the test, and she understands that she will be contacted by central scheduling for an appointment. We agreed to schedule her next follow-up appointment in 11 months to avoid the [place] holiday, with the plan to see her sooner if the echo results are concerning. I advised her to call if she develops any new chest pain, shortness of breath, heart palpitations, or lightheadedness. Orders: Orders CA echo transthoracic complete Today I35.9 - Nonrheumatic aortic valve disorder, unspecified, R01.1 - Cardiac murmur, unspecified Patient Instructions: - Continue taking all your medications as prescribed. - An order has been placed for a heart ultrasound (echocardiogram) to check on your heart valve. Our scheduling department will call you to set up an appointment. - We will call you with the results of the ultrasound a few days after it is completed. - Please contact our office if you develop any new chest pain, shortness of breath, a feeling of your heart racing or skipping beats, or lightheadedness. - Your next follow-up visit is scheduled in 11 months, which will be in December. Patient was informed and verbally consented to the use of an ambient scribe for clinic note documentation during this visit. Visit time spent on chart review, interview, assessment, orders, documentation. Coding Level of Care Code Est Pt Level 4 (51127) Add On Problem Visit Only Diagnoses Aortic valve calcification I35.9 Heart murmur R01.1 Essential hypertension I10 Hypertension type: essential hypertension Pure hypercholesterolemia E78.00 Hyperlipidemia type: pure hypercholesterolemia CPT Codes EKG - CPT: 01430-[id number], Complete ([id number]) Time Spent (min) 28
[2025-02-16 09:27] VITALS: BP 120/64; PULSE 74; BMI 28.0
--- OUTSIDE RECORDS SUMMARY | 2025-02-16 10:17 | XMS_ITS | Patient Health Record ---
[facility] Address [address] [place] [address] Care Team Providers Care Technical Services Assistant Name Role Phone Mj VÁZQUEZ, Veronica Ugarte Primary Care Provider Un available Ursula Forrest Unavailable [phone] Allergies No Known Allergies Reason For Referral [...] Status Risk Notes Problem Acquired hallux valgus (09894656) Hallux valgus (acquired), left foot (M20.12) Active confirmed Problem Acquired hallux valgus (64953261) Hallux valgus (acquired), right foot (M20.11) Active confirmed Problem Contracture of joint of left foot (disorder) (326143644640843) Contracture , 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) Active confirmed Problem Acquired hammer toe of right foot (8835009545370975 ) Hammer toe of right foot (M20.41) Active confirmed Problem Acquired hammer toe of left foot (5437114652847540 ) Hammer toe of left foot (M20.42) [...] Insured Coverage Start Date Coverage End Date [facility] [address] [facility] [place] [id number] [phone] [id number] Fani Faust Self - patient is the insured Medical (General) History Medical History History ICD Code Arthritis broken bones mumps Depression Diverticulosis thyroid Surgical History Surgery Date(Month/Year) disc surgery 1999 [facility], 2 nd MPJ Caps/Ten R, HT repair 2nd, 3rd, 4th R [place]: [place] 12/13/2017 Hospitalization History Reason Date(Month/Year) [facility] [place]- Diverticulitis 05/2017 [facility] [place]- fall - bleeding outside of brain
== END 2025-02-16 09:47 | disposition home or self-care (01) ==
LOC: HO.HCS 09:16
PROVIDERS: PCP Internal Medicine; Visit Provider Nurse Practitioner Family
DX: I35.9 Nonrheumatic aortic valve disorder, unspecified (principal); R01.1 Cardiac murmur, unspecified; I10 Essential (primary) hypertension; E78.00 Pure hypercholesterolemia, unspecified
CPT/HCPCS: 93010; 99214; G2211

== ENCOUNTER → 2025-02-16 09:15 | Outpatient (BNVA) | payer MEDICARE, SELFPAY | PROVIDERS: PCP Internal Medicine; Visit Provider Nurse Practitioner Family | DX: I10 Essential (primary) hypertension (principal); R01.1 Cardiac murmur, unspecified; I35.9 Nonrheumatic aortic valve disorder, unspecified; E78.00 Pure hypercholesterolemia, unspecified | CPT/HCPCS: 93005; 99212 ==